=== PATIENT | male | born 1945 | race Two or more races ===

== ENCOUNTER 2018-05-15 07:25 | Emergency (ER) | payer MEDICARE ==
[2018-05-15 07:31] VITALS: BP 185/106; PULSE 85; RESP 18; TEMP 97.8
--- NOTE | 2018-05-15 07:48 | ED ---
General Adult HPI - General Chief complaint: Skin/Abscess/Foreign Body Stated complaint: Rash Time Seen by Provider: 05/15/18 07:36 Source: patient, RN notes reviewed Mode of arrival: ambulatory Limitations: no limitations - History of Present Illness Initial comments: 72-year-old male history of hypertension presenting with 10 days of rash to both forearms. Patient has been clearing some bushes and shrubs from his property. He believes he may have come in contact with poison IV. He's had an erythematous itchy rash with some blistering over both forearms for the past 10 days. He has been applying topical steroids with minimal improvement. Denies any sores in the mouth or on the tongue. Denies fever or chills. Denies chest pain or difficulty breathing. No other associated symptoms. Rash is located just on his forearms. - Related Data Previous Rx's Medication Instructions Recorded methylPREDNISolone Dose Pack 4 mg PO DIRECTED #21 package 05/15/18 [Medrol Dose Pack] Allergies Allergy/AdvReac Type Severity Reaction Status Date / Time No Known Allergies Allergy Verified 05/15/18 07:31 Review of Systems ROS Statement: Those systems with pertinent positive or pertinent negative responses have been documented in the HPI. ROS Other: All systems not noted in ROS Statement are negative. Past Medical History Past Medical History: Hypertension Additional Past Medical History / Comment(s): Glaucoma History of Any Multi-Drug Resistant Organisms: None Reported Additional Past Surgical History / Comment(s): Cataract surgery Past Psychological History: No Psychological Hx Reported Smoking Status: Current every day smoker Past Alcohol Use History: Occasional General Exam Limitations: no limitations General appearance: alert, in no apparent distress Head exam: Present: atraumatic, normocephalic Eye exam: Present: normal appearance, PERRL ENT exam: Present: normal exam Neck exam: Present: normal inspection. Absent: tenderness, meningismus Respiratory exam: Present: normal lung sounds bilaterally. Absent: respiratory distress Cardiovascular Exam: Present: regular rate, normal rhythm GI/Abdominal exam: Present: soft Extremities exam: Present: other (Erythematous rash, diffuse on the palmar surface of both forearms, there is some yellow crusting and blistering consistent with poison dinah.) Neurological exam: Present: alert, oriented X3 Skin exam: Present: rash Course Vital Signs 05/15/18 07:29 Temperature 97.8 F Pulse Rate 85 Respiratory 18 Rate Blood Pressure 185/106 O2 Sat by Pulse 97 Oximetry Medical Decision Making - Medical Decision Making 72-year-old male with history and physical exam findings consistent with poison dinah. Patient is instructed on local care including washing and application, and lotion. He will be prescribed oral steroids for symptomatically relief. He will follow-up with his primary care physician. Disposition Clinical Impression: Contact dermatitis, Poison dinah dermatitis Disposition: HOME SELF-CARE Condition: Good Instructions: Poison Dinah (ED) Prescriptions: methylPREDNISolone Dose Pack [Medrol Dose Pack] 4 mg PO DIRECTED #21 package Is patient prescribed a controlled substance at d/c from ED?: No Referrals: Rafal Olivarez DO [Primary Care Provider] - 1-2 days Time of Disposition: 07:48
== END 2018-05-15 07:57 | disposition home or self-care (01) ==
LOC: EC 07:25
DX: L23.7 Allergic contact dermatitis due to plants, except food (principal); F17.200 Nicotine dependence, unspecified, uncomplicated
CPT/HCPCS: 99282

== ENCOUNTER 2022-01-22 17:57 | Emergency (ER) | payer MEDICARE ==
[2022-01-22] MEDS ORDERED: IPRATROPIUM-ALBUTEROL 3 ML NEB INHALATION STA ×2 (18:20→19:27)
[2022-01-22] MEDS ORDERED: SODIUM CHLORIDE 0.9% 1,000 ML IV STA (18:20)
--- NOTE | 2022-01-22 18:23 | ED ---
SOB HPI - General Chief Complaint: Shortness of Breath Stated Complaint: ADRIAN, tremors Time Seen by Provider: 01/22/22 18:12 Source: patient, RN notes reviewed Mode of arrival: ambulatory Limitations: no limitations - History of Present Illness Initial Comments: 76-year-old male with a history of glaucoma he denies any history of COPD asthma are seen whether he does smoke 1 pack cigarettes every 2 days who presents with complaints of shortness of breath this started about 45 minutes prior to arrival he does admit he is had a cough with green phlegm for last couple weeks. No overt fevers chills sweats he does have exertional dyspnea but he states this is long-term and nothing new. No chest pain or other complaints at this time MD Complaint: shortness of breath, cough - Related Data Home Medications Medication Instructions Recorded Confirmed Lisinopril-Hctz 20-12.5 mg 1 tab PO DAILY 05/15/18 01/22/22 [Zestoretic 20-12.5] Tamsulosin HCl [Flomax] 0.4 mg PO DAILY 01/22/22 01/22/22 Previous Rx's Medication Instructions Recorded Amoxic-Pot Clav 875-125Mg 1 tab PO Q12HR 1 Days #20 tab 01/22/22 [Augmentin 875-125] predniSONE [Deltasone] 20 mg PO BID #10 tab 01/22/22 Allergies Allergy/AdvReac Type Severity Reaction Status Date / Time No Known Allergies Allergy Verified 01/22/22 18:02 Review of Systems ROS Statement: Those systems with pertinent positive or pertinent negative responses have been documented in the HPI. ROS Other: All systems not noted in ROS Statement are negative. Past Medical History Past Medical History: Hypertension Additional Past Medical History / Comment(s): Glaucoma History of Any Multi-Drug Resistant Organisms: None Reported Additional Past Surgical History / Comment(s): Cataract surgery Past Psychological History: No Psychological Hx Reported Smoking Status: Never smoker Past Alcohol Use History: Occasional Past Drug Use History: None Reported General Exam - General Exam Comments Initial Comments: This is a well-developed well-nourished awake alert oriented 4 male Limitations: no limitations General appearance: alert, in no apparent distress Head exam: Present: atraumatic, normocephalic, normal inspection Eye exam: Present: normal appearance, PERRL, EOMI. Absent: scleral icterus, conjunctival injection, periorbital swelling ENT exam: Present: mucous membranes dry Neck exam: Present: normal inspection, full ROM, other. Absent: tenderness, meningismus, lymphadenopathy Respiratory exam: Present: decreased breath sounds, other (Rodriguez sounds bilaterally more so on the right than the left however.). Absent: respiratory distress, wheezes, rales, rhonchi, stridor Cardiovascular Exam: Present: regular rate, normal rhythm, normal heart sounds. Absent: systolic murmur, diastolic murmur, rubs, gallop, clicks GI/Abdominal exam: Present: soft, normal bowel sounds. Absent: distended, tenderness, guarding, rebound, rigid Extremities exam: Present: normal inspection, full ROM, normal capillary refill. Absent: tenderness, pedal edema, joint swelling, calf tenderness Back exam: Present: normal inspection Neurological exam: Present: alert, oriented X3, CN II-XII intact Psychiatric exam: Present: normal affect, normal mood Skin exam: Present: warm, dry, intact, normal color. Absent: rash Course Vital Signs 01/22/22 01/22/22 01/22/22 18:00 18:37 18:45 Temperature 97.9 F Pulse Rate 77 74 76 Respiratory 24 Rate Blood Pressure 150/89 O2 Sat by Pulse 97 Oximetry 01/22/22 01/22/22 01/22/22 18:46 19:56 20:07 Temperature Pulse Rate 76 78 Respiratory 22 Rate Blood Pressure O2 Sat by Pulse Oximetry - Reevaluation(s) Reevaluation #1: 01/22/22 19:50 Reevaluation the patient does have increased aeration after the initial nebulizer treatment. He is still complain some exertional dyspnea after this. Repeat updraft will be ordered as well as IV steroids Medical Decision Making - Medical Decision Making I did discuss the findings with the patient family patient was road tested by me he was able walk several 100 feet with minimal exertion and maintain a pulse oximetry of 97%. Patient will be discharged home with an inhaler prescription for antibiotics and steroids and he is instructed to follow-up with Dr. Olivarez in 1-2 days. Also return parameters were discussed. - Lab Data Result diagrams: 01/22/22 18:31 01/22/22 18:31 Lab Results 01/22/22 01/22/22 01/22/22 Range/Units 18:31 18:31 18:31 WBC 6.5 (3.8-10.6) k/uL RBC 4.64 (4.30-5.90) m/uL Hgb 13.8 (13.0-17.5) gm/dL Hct 41.5 (39.0-53.0) % MCV 89.6 (80.0-100.0) fL MCH 29.7 (25.0-35.0) pg MCHC 33.1 (31.0-37.0) g/dL RDW 13.3 (11.5-15.5) % Plt Count 206 (150-450) k/uL MPV 8.3 Neutrophils % 64 % Lymphocytes % 28 % Monocytes % 4 % Eosinophils % 2 % Basophils % 0 % Neutrophils # 4.1 (1.3-7.7) k/uL Lymphocytes # 1.8 (1.0-4.8) k/uL Monocytes # 0.3 (0-1.0) k/uL Eosinophils # 0.1 (0-0.7) k/uL Basophils # 0.0 (0-0.2) k/uL PT 10.3 (9.0-12.0) sec INR 0.9 (<1.2) APTT 23.3 (22.0-30.0) sec Sodium 140 (137-145) mmol/L Potassium 3.5 (3.5-5.1) mmol/L Chloride 109 H (98-107) mmol/L Carbon Dioxide 27 (22-30) mmol/L Anion Gap 4 mmol/L BUN 23 H (9-20) mg/dL Creatinine 0.81 (0.66-1.25) mg/dL Est GFR (CKD-EPI)AfAm >90 (>60 ml/min/1.73 sqM) Est GFR (CKD-EPI)NonAf 87 (>60 ml/min/1.73 sqM) Glucose 113 H (74-99) mg/dL Calcium 8.9 (8.4-10.2) mg/dL Magnesium 2.0 (1.6-2.3) mg/dL Total Bilirubin 0.3 (0.2-1.3) mg/dL AST 18 (17-59) U/L ALT 18 (4-49) U/L Alkaline Phosphatase 77 (38-126) U/L Troponin I (0.000-0.034) ng/mL NT-Pro-B Natriuret Pep pg/mL Total Protein 6.6 (6.3-8.2) g/dL Albumin 3.8 (3.5-5.0) g/dL 01/22/22 01/22/22 Range/Units 18:31 18:31 WBC (3.8-10.6) k/uL RBC (4.30-5.90) m/uL Hgb (13.0-17.5) gm/dL Hct (39.0-53.0) % MCV (80.0-100.0) fL MCH (25.0-35.0) pg MCHC (31.0-37.0) g/dL RDW (11.5-15.5) % Plt Count (150-450) k/uL MPV Neutrophils % % Lymphocytes % % Monocytes % % Eosinophils % % Basophils % % Neutrophils # (1.3-7.7) k/uL Lymphocytes # (1.0-4.8) k/uL Monocytes # (0-1.0) k/uL Eosinophils # (0-0.7) k/uL Basophils # (0-0.2) k/uL PT (9.0-12.0) sec INR (<1.2) APTT (22.0-30.0) sec Sodium (137-145) mmol/L Potassium (3.5-5.1) mmol/L Chloride (98-107) mmol/L Carbon Dioxide (22-30) mmol/L Anion Gap mmol/L BUN (9-20) mg/dL Creatinine (0.66-1.25) mg/dL Est GFR (CKD-EPI)AfAm (>60 ml/min/1.73 sqM) Est GFR (CKD-EPI)NonAf (>60 ml/min/1.73 sqM) Glucose (74-99) mg/dL Calcium (8.4-10.2) mg/dL Magnesium (1.6-2.3) mg/dL Total Bilirubin (0.2-1.3) mg/dL AST (17-59) U/L ALT (4-49) U/L Alkaline Phosphatase (38-126) U/L Troponin I <0.012 (0.000-0.034) ng/mL NT-Pro-B Natriuret Pep 208 pg/mL Total Protein (6.3-8.2) g/dL Albumin (3.5-5.0) g/dL - EKG Data -: EKG Interpreted by Me EKG shows normal: sinus rhythm EKG Comments: Sinus rhythm a 74 [place] interval 202 QRS duration 112 QT since QTC 379/406 pulmonary disease pattern and left anterior fascicular block - Radiology Data Radiology results: report reviewed (Image reviewed as well as report no acute findings), image reviewed Disposition Clinical Impression: Acute exacerbation of chronic obstructive pulmonary disease, Bronchitis Disposition: HOME SELF-CARE Condition: Good Instructions (If sedation given, give patient instructions): Acute Bronchitis (ED), Bronchospasm (ED), COPD (Chronic Obstructive Pulmonary Disease) (ED) Prescriptions: Amoxic-Pot Clav 875-125Mg [Augmentin 875-125] 1 tab PO Q12HR 1 Days #20 tab predniSONE [Deltasone] 20 mg PO BID #10 tab Is patient prescribed a controlled substance at d/c from ED?: No Referrals: Rafal Olivarez DO [Primary Care Provider] - 1-2 days Decision Date: 01/22/22 Decision Time: 20:48
[2022-01-22 18:57] LABS: ALT 18 U/L (4-49); AST 18 U/L (17-59); African American GFR (CKD) >90 (>60 ml/min/1.73 sqM); Albumin 3.8 g/dL (3.5-5.0); Alkaline Phosphatase 77 U/L (38-126); Anion Gap 4 mmol/L; Blood Urea Nitrogen 23 mg/dL (9-20); Calcium 8.9 mg/dL (8.4-10.2); Carbon Dioxide 27 mmol/L (22-30); Chloride 109 mmol/L (98-107); Glucose 113 mg/dL (74-99); Non-African American GFR(CKD) 87 (>60 ml/min/1.73 sqM); Potassium 3.5 mmol/L (3.5-5.1); Sodium 140 mmol/L (137-145); Total Bilirubin 0.3 mg/dL (0.2-1.3); Total Protein 6.6 g/dL (6.3-8.2)
[2022-01-22 19:01] LABS: Basophils % (A) 0 %; Eosinophils # (A) 0.1 k/uL (0-0.7); Eosinophils % (A) 2 %; HCT 41.5 % (39.0-53.0); HGB 13.8 gm/dL (13.0-17.5); Lymphocytes # (A) 1.8 k/uL (1.0-4.8); Lymphocytes % (A) 28 %; MCH 29.7 pg (25.0-35.0); MCHC 33.1 g/dL (31.0-37.0); MCV 89.6 fL (80.0-100.0); Mean Platelet Volume 8.3; Monocytes # (A) 0.3 k/uL (0-1.0); Monocytes % (A) 4 %; Neutrophils # (A) 4.1 k/uL (1.3-7.7); Neutrophils % (A) 64 %; Platelet Count 206 k/uL (150-450); RBC 4.64 m/uL (4.30-5.90); RDW 13.3 % (11.5-15.5); WBC 6.5 k/uL (3.8-10.6)
[2022-01-22 19:02] LABS: INR 0.9 (<1.2); Partial Thromboplastin Time 23.3 sec (22.0-30.0); Prothrombin Time 10.3 sec (9.0-12.0)
--- NOTE | 2022-01-22 19:20 | XR ---
EXAMINATION TYPE: XR chest 2V DATE OF EXAM: 01/22/2022 COMPARISON: NONE HISTORY: Difficulty breathing TECHNIQUE: 2 views FINDINGS: Heart is normal. Lungs are clear of consolidation. There are no hilar masses. Costophrenic angles are clear. Bony thorax is intact. IMPRESSION: No active cardiopulmonary disease. Normal heart.
[2022-01-22] MEDS ORDERED: methylPREDNISolone SOD SUCCI 125 MG/2 ML VIAL IV STA (19:27)
[2022-01-22] MEDS ORDERED: ALBUTEROL HFA INHALER INHALATION STA (20:43)
[2022-01-22] MEDS ORDERED: AMOXIC-POT CLAV 875-125MG 1 EACH TAB PO STA (20:48)
[2022-01-22 21:36] VITALS: BP 137/77; PULSE 73; RESP 18; TEMP 97.2
== END 2022-01-22 21:35 | disposition home or self-care (01) ==
LOC: EC 17:57
DX: J44.1 Chronic obstructive pulmonary disease with (acute) exacerbation (principal); I10 Essential (primary) hypertension; Z79.899 Other long term (current) drug therapy
CPT/HCPCS: 36415; 94640 ×2; 93005; 83880; 80053; 83735; 84484; 85025; 85610; 85730; 71046; 99285; 96374; 96361; J2930

== ENCOUNTER 2022-02-07 16:57 | Emergency (ER) | payer MEDICARE ==
[2022-02-07 17:05] VITALS: BP 139/79; PULSE 91; RESP 18; TEMP 98.1
[2022-02-07 18:31] LABS: Appearance,Urine Cloudy (Clear); Bacteria,Urine Rare /hpf; Bilirubin,Urine 2+ (Negative); Blood,Urine Small (Negative); Color,Urine Dark Brown; Glucose,Urine (UA) Negative (Negative); Ketones,Urine Negative (Negative); Leukocyte Esterase,Urine Negative (Negative); Mucus,Urine Many /hpf; Nitrite,Urine Positive (Negative); Protein,Urine 3+ (Negative); RBC,Urine 60 /hpf (0-5); Specific Gravity,Urine 1.019 (1.001-1.035); Squamous Epithelial Cell,Urine 1 /hpf (0-4); WBC,Urine 31 /hpf (0-5)
[2022-02-07] MEDS ORDERED: SULFAMETHOX-TMP 800-160MG 1 EACH TAB PO STA (18:54)
[2022-02-07] MEDS ORDERED: PHENAZOPYRIDINE 100 MG TAB PO STA (18:54)
--- NOTE | 2022-02-07 18:56 | ED ---
Male Urogenital HPI - General Chief complaint: Urogenital Stated complaint: trouble urinating Time Seen by Provider: 02/07/22 17:38 Source: patient Mode of arrival: ambulatory Limitations: no limitations - History of Present Illness Initial comments: Patient is a 76-year-old male with history of hypertension presenting with chief complaint of dysuria. Patient states that today he began experiencing burning with urination as well as small frequent amounts of urine. Patient states that he regularly gets episodes of the symptoms, states he is normally able to control the symptoms by drinking a lot of water, however today his symptoms have not improved. He took Azo at home with no relief. He denies any abdominal pain, back pain, fever, chills, nausea, vomiting, chest pain, shortness of breath, palpitations, weakness, genital pain. - Related Data Home Medications Medication Instructions Recorded Confirmed Lisinopril-Hctz 20-12.5 mg 1 tab PO DAILY 05/15/18 01/22/22 [Zestoretic 20-12.5] Tamsulosin HCl [Flomax] 0.4 mg PO DAILY 01/22/22 01/22/22 Previous Rx's Medication Instructions Recorded Amoxic-Pot Clav 875-125Mg 1 tab PO Q12HR 1 Days #20 tab 01/22/22 [Augmentin 875-125] predniSONE [Deltasone] 20 mg PO BID #10 tab 01/22/22 Phenazopyridine [Pyridium] 100 mg PO TID PRN 2 Days #6 tablet 02/07/22 Sulfamethox-Tmp 800-160Mg [Bactrim 1 tab PO Q12HR 10 Days #20 tab 02/07/22 DS 800-160 mg] Allergies Allergy/AdvReac Type Severity Reaction Status Date / Time No Known Allergies Allergy Verified 02/07/22 17:05 Review of Systems ROS Statement: Those systems with pertinent positive or pertinent negative responses have been documented in the HPI. ROS Other: All systems not noted in ROS Statement are negative. Past Medical History Past Medical History: Hypertension Additional Past Medical History / Comment(s): Glaucoma History of Any Multi-Drug Resistant Organisms: None Reported Additional Past Surgical History / Comment(s): Cataract surgery Past Psychological History: No Psychological Hx Reported Smoking Status: Current every day smoker Past Alcohol Use History: Occasional Past Drug Use History: None Reported General Exam Limitations: no limitations General appearance: alert, in no apparent distress Head exam: Present: atraumatic, normocephalic, normal inspection Eye exam: Present: normal appearance, EOMI. Absent: scleral icterus, periorbital swelling Neck exam: Present: normal inspection Respiratory exam: Present: normal lung sounds bilaterally. Absent: respiratory distress, wheezes, rales, rhonchi, stridor Cardiovascular Exam: Present: regular rate, normal rhythm, normal heart sounds. Absent: systolic murmur, diastolic murmur, rubs, gallop, clicks Back exam: Present: normal inspection. Absent: CVA tenderness (R), CVA tenderness (L) Neurological exam: Present: alert, oriented X3, CN II-XII intact Psychiatric exam: Present: normal affect, normal mood Skin exam: Present: warm, dry, intact, normal color. Absent: rash Course Vital Signs 02/07/22 17:00 Temperature 98.1 F Pulse Rate 91 Respiratory 18 Rate Blood Pressure 139/79 O2 Sat by Pulse 94 L Oximetry Medical Decision Making - Medical Decision Making Patient is a 76-year-old male presenting with dysuria, urgency, frequency starting today. He took AZO at home with no relief. He has no abdominal pain or CVA tenderness. No fever, chills, nausea, vomiting. Urine shows signs of UTI, small blood, positive nitrites, urine RBC and WBC, urine WBC clumps, and rare bacteria. Patient will be treated for UTI with Bactrim twice a day for 10 days. Patient is given 2 days supply of Pyridium, instructed not to take medication longer than 2 days and to seek further evaluation if symptoms do not improve in 2 days. Follow-up with PCP in one to 2 days. Report back to ER if any new or worsening symptoms. I discussed return parameters answered all questions. Patient conveyed verbal understanding and agreed to the plan. I discussed this case my attending Dr. Treviño. - Lab Data Lab Results 02/07/22 Range/Units 18:15 Urine Color Dark Brown Urine Appearance Cloudy (Clear) Urine pH 6.0 (5.0-8.0) Ur Specific [place] [address] [place] 1.019 (1.001-1.035) Urine Protein 3+ H (Negative) Urine Glucose (UA) Negative (Negative) Urine Ketones Negative (Negative) Urine Blood Small H (Negative) Urine Nitrite Positive (Negative) Urine Bilirubin 2+ H (Negative) Urine Urobilinogen 8.0 (<2.0) mg/dL Ur Leukocyte Esterase Negative (Negative) Urine RBC 60 H (0-5) /hpf Urine WBC 31 H (0-5) /hpf Urine WBC Clumps Rare H (None) /hpf Ur Squamous Epith Cells 1 (0-4) /hpf Urine Bacteria Rare H (None) /hpf Urine Mucus Many H (None) /hpf Disposition Clinical Impression: UTI (urinary tract infection) Disposition: HOME SELF-CARE Condition: Good Instructions (If sedation given, give patient instructions): Urinary Tract Infection in Men (ED) Additional Instructions: Follow-up with PCP in one to 2 days. Report back to ER with any new or worsening symptoms. Take medication as prescribed. Do not take Pyridium for more than 2 days. Prescriptions: Sulfamethox-Tmp 800-160Mg [Bactrim DS 800-160 mg] 1 tab PO Q12HR 10 Days #20 tab Phenazopyridine [Pyridium] 100 mg PO TID PRN 2 Days #6 tablet PRN Reason: Pain Is patient prescribed a controlled substance at d/c from ED?: No Referrals: Rafal Olivarez DO [Primary Care Provider] - 1-2 days Time of Disposition: 18:56
== END 2022-02-07 19:21 | disposition home or self-care (01) ==
LOC: EC 16:57
DX: N39.0 Urinary tract infection, site not specified (principal); I10 Essential (primary) hypertension; F17.200 Nicotine dependence, unspecified, uncomplicated; Z79.899 Other long term (current) drug therapy
CPT/HCPCS: 81001; 87086; 99283

== ENCOUNTER → 2022-06-07 | Outpatient (CLI) | payer MEDICARE ==
[2022-06-07 11:53] LABS: African American GFR (CKD) >90 (>60 ml/min/1.73 sqM); Blood Urea Nitrogen 27 mg/dL (9-20); Non-African American GFR(CKD) 84 (>60 ml/min/1.73 sqM)
--- NOTE | 2022-06-07 13:06 | CT ---
EXAMINATION TYPE: CT urogram wo/w con DATE OF EXAM: 06/07/2022 COMPARISON: None HISTORY: Reduced urine flow, microscopic hematuria CT DLP: 4723.7 mGycm CONTRAST: Performed and without and with IV Contrast, patient injected with 100 mL of Isovue 370. CT Urography was performed with unenhanced followed by enhanced images of the kidneys, ureters and ur inary bladder. Delayed images were obtained. 3d reconstruction was performed at a separate work sta tion. FINDINGS: KIDNEYS/BLADDER: No hydronephrosis. No nephrolithiasis. No disctinct renal mass. Urinary bladder g rossly unremarkable. LUNG BASES-: No visible nodule. No infiltrate. LIVER/GB: No calcified gallstones. 1.6 cm hepatic hemangioma lateral segment left hepatic lobe. Add itional hepatic hemangioma measuring 1.2 cm medial segment left hepatic lobe. Simple hepatic cyst ant erior segment right hepatic lobe measuring 2.3 cm. Biliary tree is of normal caliber. PANCREAS: No inflammation. No distinct mass. SPLEEN: No splenic enlargement. No lesion seen. ADRENALS: No nodule. No thickening. BOWEL: Normal appendix. Normal bowel caliber. No inflammation. GENITAL ORGANS: The prostate gland is enlarged at 6.1 x 5.5 cm. LYMPH NODES: No greater than 1cm abdominal or pelvic lymph nodes are appreciated. AORTA: No significant abnormality. OSSEOUS STRUCTURES: No significant abnormality is seen. OTHER: No significant additional abnormality is seen. IMPRESSION: 1. No significant abnormality to account for the patient's symptoms.
== END | disposition home or self-care (01) ==
LOC: RADCTMAIN 11:01
PROVIDERS: ATTEND Urology
DX: R31.1 Benign essential microscopic hematuria (principal)
CPT/HCPCS: 82565; 84520; 74178; 36415; 74400; Q9967

== ENCOUNTER 2023-08-26 09:03 | Emergency (ER) | payer MEDICARE ==
[2023-08-26 09:34] VITALS: RESP 18; TEMP 97.5
[2023-08-26] MEDS ORDERED: FLUORESCEIN STRIPS 1 MG STRIP LEFT EYE ONE (10:00)
[2023-08-26] MEDS ORDERED: PROPARACAINE 0.5% OPHTH DROPS 15 ML BTL LEFT EYE STA (10:00)
--- NOTE | 2023-08-26 10:06 | ED ---
Eye Problem HPI - General Chief complaint: Eye Problems Stated complaint: L eye pain and loss of vision Time Seen by Provider: 08/26/23 09:52 Source: patient, RN notes reviewed Mode of arrival: ambulatory Limitations: no limitations - History of Present Illness Initial comments: This is a 78 year old male who presents to the emergency department for left eye pain. States that 2 days ago he had pain to the left eye and saw an content strategy lead at Dr. Carrillo's office. He did an evaluation and advised that he appeared to have a large corneal abrasion. He started him on ciprofloxacin eyedrops and put a bandage contact lens over the eye. He is concerned that the lens may have become loose, as he has had increasing pain and blurry vision. Also reports photosensitivity. He is taking over the counter Tylenol with no significant relief. MD chief complaint: eye pain - Related Data Home Medications Medication Instructions Recorded Confirmed Lisinopril-Hctz 20-12.5 mg 1 tab PO DAILY 05/15/18 01/22/22 [Zestoretic 20-12.5] Tamsulosin HCl [Flomax] 0.4 mg PO DAILY 01/22/22 01/22/22 Previous Rx's Medication Instructions Recorded Amoxic-Pot Clav 875-125Mg 1 tab PO Q12HR 1 Days #20 tab 01/22/22 [Augmentin 875-125] predniSONE [Deltasone] 20 mg PO BID #10 tab 01/22/22 Phenazopyridine [Pyridium] 100 mg PO TID PRN 2 Days #6 tablet 02/07/22 Sulfamethox-Tmp 800-160Mg [Bactrim 1 tab PO Q12HR 10 Days #20 tab 02/07/22 DS 800-160 mg] Allergies Allergy/AdvReac Type Severity Reaction Status Date / Time No Known Allergies Allergy Verified 08/26/23 09:13 Review of Systems ROS Statement: Those systems with pertinent positive or pertinent negative responses have been documented in the HPI. ROS Other: All systems not noted in ROS Statement are negative. Past Medical History Past Medical History: Hypertension Additional Past Medical History / Comment(s): Glaucoma History of Any Multi-Drug Resistant Organisms: None Reported Additional Past Surgical History / Comment(s): Cataract surgery Past Psychological History: No Psychological Hx Reported Smoking Status: Current every day smoker Past Alcohol Use History: Occasional Past Drug Use History: None Reported General Exam Limitations: no limitations General appearance: alert, in no apparent distress Head exam: Present: atraumatic, normocephalic, normal inspection Eye exam: Present: PERRL, EOMI, other (Contact lens in place over the left eye with visible corneal abrasion. ) Respiratory exam: Present: normal lung sounds bilaterally. Absent: respiratory distress, wheezes, rales, rhonchi, stridor Cardiovascular Exam: Present: regular rate, normal rhythm, normal heart sounds. Absent: systolic murmur, diastolic murmur, rubs, gallop, clicks Neurological exam: Present: alert, oriented X3, CN II-XII intact Psychiatric exam: Present: normal affect, normal mood Skin exam: Present: warm, dry, intact, normal color. Absent: rash Course Vital Signs 08/26/23 08/26/23 09:09 12:40 Temperature 97.5 F L Pulse Rate 65 60 Respiratory 18 18 Rate Blood Pressure 183/93 170/100 O2 Sat by Pulse 96 97 Oximetry Medical Decision Making - Medical Decision Making This is a 78-year-old male who presents to the emergency department for left eye pain. Was pt. sent in by a medical professional or institution? @ -No Did you speak to anyone other than the patient for history? @ -No Did you review nursing and triage notes? @ -Yes, and I agree, it is accurate with regards to the patient's symptoms. Were old charts reviewed? @ -No Differential Diagnosis? @ -Differential Eye Pain: Conjuncitivitis (viral, bacterial, allergic), corneal abrasion, foreign body, iritis, uveitis, keratitis, acute angle closure glaucoma, this is not meant to be an all-inclusive list. EKG interpreted by me (3pts min.)? @ -Not obtained X-rays interpreted by me (1pt min.)? @ -Not obtained CT interpreted by me (1pt min.)? @ -Not obtained U/S interpreted by me (1pt. min.)? @ -Not obtained What testing was considered but not performed? (CT, X-rays, U/S, labs)? Why? @ -None What meds were considered but not given? Why? @ -None Did you discuss the management of the patient with other professionals? @ -Yes, Dr. Ackerman, ophthalmology, who advised that the lens could be removed and the patient can use lubricating eye drops every couple of hours for additional relief. Did you reconcile home meds? @ -No Was smoking cessation discussed for >3mins.? @ -No Was critical care preformed (if so, how long)? @ -No Were there social determinants of health that impacted care today? How? (Homelessness, low income, unemployed, alcoholism, drug addiction, transportation, low edu. Level, literacy, decrease access to med. care, snf, rehab)? @ -No Was there de-escalation of care discussed even if they declined? (Discuss DNR or withdrawal of care, Hospice)? @ -No What co-morbidities impacted this encounter? (DM, HTN, Smoking, COPD, CAD, Cancer, CVA, Hep., AIDS, mental health diagnosis, sleep apnea, morbid obesity)? @ -None Was patient admitted / discharged? @ -Discharged. Patient had a corneal abrasion with a bandage contact lens on top. Case discussed with on-call ophthalmology, Dr. Ackerman. He advised that based on the patient's level of discomfort, it would be advised to remove this and have him follow-up with his content strategy lead in the office tomorrow. Fluorescein staining performed to visualize the outline of the contact lens. Contact lens removed by Dr. Thomas, ED attending. Discussed the possibility of infection being trapped under the lens or the lens causing inflammation, leading to the pain. Patient noted improvement in vision and pain following lens removal. Advised to continue using the antibiotic drops as prescribed. Per Dr. Ackerman's recommendations, also advised using lubricating eyedrops every couple of hours for additional relief and continuing to alternate with ibuprofen and Ty lenol for pain relief. Patient is instructed to contact Dr. Carrillo's office first thing tomorrow morning for a follow-up appointment. Undiagnosed new problem with uncertain prognosis? @ -None Drug Therapy requiring intensive monitoring for toxicity (Heparin, Nitro, Insulin, Cardizem)? @ -None Were any procedures done? @ -None Diagnosis/symptom? @ -Corneal abrasion Acute, or Chronic, or Acute on Chronic? @ -Acute Uncomplicated (without systemic symptoms) or Complicated (systemic symptoms)? @ -Uncomplicated Side effects of treatment? @ -None Exacerbation, Progression, or Severe Exacerbation] @ -Not applicable Poses a threat to life or bodily function? @ -No Return precautions reviewed in depth, the patient is instructed to return to the emergency department with any new, worsening, or concerning symptoms. Patient verbalized understanding. This case was discussed in detail with the attending ED physician, Dr. Thomas. Presentation, findings, and treatment plan discussed in detail as well. Disposition Clinical Impression: Corneal abrasion Disposition: HOME SELF-CARE Instructions (If sedation given, give patient instructions): Corneal Abrasion (ED) Additional Instructions: Return to the emergency department with any new, worsening, or concerning symptoms. Alternate with ibuprofen and Tylenol as needed for pain relief. Use lubricating eyedrops every couple of hours. Continue to use the antibiotic eyedrops. Contact your content strategy lead office first thing tomorrow morning to see if they can see you for a sooner follow-up appointment. Is patient prescribed a controlled substance at d/c from ED?: No Referrals: Rafal Olivarez DO [Primary Care Provider] - 1-2 days Stephon Carrillo MD [STAFF PHYSICIAN] - 1-2 days Time of Disposition: 12:21
[2023-08-26 13:04] VITALS: BP 170/100; PULSE 60
== END 2023-08-26 12:48 | disposition home or self-care (01) ==
LOC: EC 09:03
DX: S05.02XA Injury of conjunctiva and corneal abrasion without foreign body, left eye, initial encounter (principal); I10 Essential (primary) hypertension; F17.200 Nicotine dependence, unspecified, uncomplicated; X58.XXXA Exposure to other specified factors, initial encounter
CPT/HCPCS: 99283

== ENCOUNTER 2024-02-19 15:49 | Emergency (ER) | payer MEDICARE ==
[2024-02-19 16:11] VITALS: TEMP 98
[2024-02-19] MEDS: IBUPROFEN 400 MG TAB PO STA (16:47)
--- NOTE | 2024-02-19 19:07 | ED ---
Lower Extremity Injury HPI - General Chief Complaint: Extremity Injury, Lower Stated Complaint: Fall-L hip pain Time Seen by Provider: 02/19/24 16:15 Source: patient Mode of arrival: wheelchair Limitations: no limitations - History of Present Illness Initial Comments: 78-year-old male presenting with chief complaint of left hip pain. Pain started today. He was grabbing cages out of his barn when he thinks that he "stepped wrong" and started having pain in the hip. A little while after states that it felt like his knee gave out and he fell landing onto his right knee. He did not hit his head, no loss of consciousness or blood thinners. He now has pain with weightbearing and certain positions. The pain radiates down his left leg. He does admit to a pins and needle sensation. Denies any lower back pain. No loss of bowel or bladder control or saddle paresthesia. - Related Data Home Medications Medication Instructions Recorded Confirmed Lisinopril-Hctz 20-12.5 mg 1 tab PO DAILY 05/15/18 01/22/22 [Zestoretic 20-12.5] Tamsulosin HCl [Flomax] 0.4 mg PO DAILY 01/22/22 01/22/22 Previous Rx's Medication Instructions Recorded Amoxic-Pot Clav 875-125Mg 1 tab PO Q12HR 1 Days #20 tab 01/22/22 [Augmentin 875-125] predniSONE [Deltasone] 20 mg PO BID #10 tab 01/22/22 Phenazopyridine [Pyridium] 100 mg PO TID PRN 2 Days #6 tablet 02/07/22 Sulfamethox-Tmp 800-160Mg [Bactrim 1 tab PO Q12HR 10 Days #20 tab 02/07/22 DS 800-160 mg] Acetaminophen-Codeine 300-30mg 1 tab PO Q6H PRN 3 Days #12 tablet 02/19/24 [Tylenol w/codeine #3] Allergies Allergy/AdvReac Type Severity Reaction Status Date / Time No Known Allergies Allergy Verified 02/19/24 16:11 Review of Systems ROS Statement: Those systems with pertinent positive or pertinent negative responses have been documented in the HPI. ROS Other: All systems not noted in ROS Statement are negative. Past Medical History Past Medical History: Hypertension Additional Past Medical History / Comment(s): Glaucoma History of Any Multi-Drug Resistant Organisms: None Reported Additional Past Surgical History / Comment(s): Cataract surgery Past Psychological History: No Psychological Hx Reported Smoking Status: Current every day smoker Past Alcohol Use History: Occasional Past Drug Use History: None Reported General Exam Limitations: no limitations General appearance: alert, in no apparent distress Head exam: Present: atraumatic, normocephalic Eye exam: Present: normal appearance, EOMI Neck exam: Present: normal inspection. Absent: meningismus Respiratory exam: Absent: respiratory distress Left Hip exam: Present: normal inspection, full ROM, tenderness Knee exam: Present: normal inspection, full ROM Neurovascular tendon exam: Present: no vascular compromise Neurological exam: Present: alert, oriented X3 Psychiatric exam: Present: normal affect, normal mood Skin exam: Present: warm, dry Course Vital Signs 02/19/24 02/19/24 02/19/24 16:07 18:13 19:53 Temperature 98.0 F Pulse Rate 16 L 72 76 Respiratory 18 16 18 Rate Blood Pressure 123/69 145/80 138/72 O2 Sat by Pulse 96 95 96 Oximetry Medical Decision Making - Medical Decision Making Was pt. sent in by a medical professional or institution (, PA, BUSINESS TRAVEL CONSULTANT, urgent care, hospital, or correction...) When possible be specific @ -No Did you speak to anyone other than the patient for history (EMS, parent, family, police, friend...)? What history was obtained from this source @ -No Did you review nursing and triage notes (agree or disagree)? Why? @ -I reviewed and agree with nursing and triage notes Were old charts reviewed (outside hosp., previous admission, EMS record, old EKG, old radiological studies, urgent care reports/EKG's, correction records)? Report findings @ -No old charts were reviewed Differential Diagnosis (chest pain, altered mental status, abdominal pain women, abdominal pain men, vaginal bleeding, weakness, fever, dyspnea, syncope, headache, dizziness, GI bleed, back pain, seizure, CVA, palpatations, mental health, musculoskeletal)? @ -Differential Musculoskeletal Muscular strain, contusion, ligament sprain, fracture, arthritis, septic arthritis, bursitis, cellulitis, muscle spasm, nerve compression, DVT, arterial occlusion, herpes zoster, electrolyte abnormality, tumor.... This is not meant to be in all inclusive list EKG interpreted by me (3pts min.). @ -As above X-rays interpreted by me (1pt min.). @ -Hip x-ray shows no acute osseous abnormality Normal 3 view left knee x-ray Lumbar spine x-ray shows no acute fracture and moderate multilevel disc degeneration CT interpreted by me (1pt min.). @ -None done U/S interpreted by me (1pt. min.). @ -None done What testing was considered but not performed or refused? (CT, X-rays, U/S, labs)? Why? @ -None What meds were considered but not given or refused? Why? @ -None Did you discuss the management of the patient with other professionals (professionals i.e. , PA, BUSINESS TRAVEL CONSULTANT, lab, RT, psych nurse, social work manager, lawyer criminal, teacher, first officer and flight instructor, test case developer)? Give summary @ -No Was smoking cessation discussed for >3mins.? @ -No Was critical care preformed (if so, how long)? @ -No Were there social determinants of health that impacted care today? How? (Homelessness, low income, unemployed, alcoholism, drug addiction, transportation, low edu. Level, literacy, decrease access to med. care, residential, rehab)? @ -No Was there de-escalation of care discussed even if they declined (Discuss DNR or withdrawal of care, Hospice)? DNR status @ -No What co-morbidities impacted this encounter? (DM, HTN, Smoking, COPD, CAD, Cancer, CVA, ARF, Chemo, Hep., AIDS, mental health diagnosis, sleep apnea, morbid obesity)? @ -None Was patient admitted / discharged? Hospital course, mention meds given and route, prescriptions, significant lab abnormalities, going to OR and other pertinent info. @ -78-year-old male presenting with chief complaint of pain to the left hip and knee. States that he stepped awkwardly today and the pain started. Later on in the day felt like the leg could not support him that he did fall onto the right knee. No head injury. The patient is neurovascularly intact. X-rays are negative for acute osseous abnormality. Patient is given pain medication and instructed to follow-up with orthopedics. Discharged. Follow-up with PCP. Rep ort back to ER with any new or worsening symptoms. Discussed return parameters and answered all questions. Patient conveyed verbal understanding and agreed to the plan. I discussed this case in detail with my attending Dr. Grossman Undiagnosed new problem with uncertain prognosis? @ -No Drug Therapy requiring intensive monitoring for toxicity (Heparin, Nitro, Insulin, Cardizem)? @ -No Were any procedures done? @ -No Diagnosis/symptom? @ -Hip pain Acute, or Chronic, or Acute on Chronic? @ -Acute Uncomplicated (without systemic symptoms) or Complicated (systemic symptoms)? @ -Uncomplicated Side effects of treatment? @ -No Exacerbation, Progression, or Severe Exacerbation? @ -No Poses a threat to life or bodily function? How? (Chest pain, [place], [place], pneumonia, PE, COPD, DKA, ARF, appy, cholecystitis, CVA, Diverticulitis, Homicidal, Suicidal, threat to staff... and all critical care pts) @ -Low likelihood Disposition Clinical Impression: Hip pain Disposition: HOME SELF-CARE Condition: Good Instructions (If sedation given, give patient instructions): Hip Pain (ED) Additional Instructions: Follow-up with PCP and orthopedics. Report back to ER with any new or worsening symptoms. Prescriptions: Acetaminophen-Codeine 300-30mg [Tylenol w/codeine #3] 1 tab PO Q6H PRN 3 Days #12 tablet PRN Reason: Pain Is patient prescribed a controlled substance at d/c from ED?: Yes When asked, does pt state using other controlled substances?: No If prescribed controlled substance>3 days was MAPS reviewed?: Prescribed <3 Days If opioid is for acute pain is fill amount 7 days or less?: Yes Referrals: Rafal Olivarez DO [Primary Care Provider] - 1-2 days Hayder Lobo DO [Doctor of Osteopathic Medicine] - 1-2 days Time of Disposition: 19:32
--- NOTE | 2024-02-19 19:10 | XR ---
EXAMINATION TYPE: XR Hip Complete LT DATE OF EXAM: 02/19/2024 COMPARISON: 02/19/2024 HISTORY: Fall twisting injury TECHNIQUE: 2 view left hip FINDINGS: Bilateral head articulates with the acetabulum. Joint spaces are preserved. No acute fractu res are evident. IMPRESSION: 1. No Acute osseous abnormality. Follow up exams be performed as clinically indicated
--- NOTE | 2024-02-19 19:10 | XR ---
EXAMINATION TYPE: XR lumbar spine 2 or 3V DATE OF EXAM: 02/19/2024 5:23 PM CLINICAL INDICATION:Male, 78 years old with history of fall; [facility] COMPARISON: None TECHNIQUE: XR lumbar spine 2 or 3V - Frontal, lateral and coned in L5-S1 lateral views of the spine. FINDINGS: No evidence of any acute osseous pathology. No evidence of loss of vertebral body height i s seen. There is normal alignment of the lumbar vertebral bodies. Scattered disc space narrowing. Mul tilevel marginal osteophyte formation throughout the visualized spine. There is facet joint arthropat hy throughout the spine. Scattered at least mild neural foraminal stenosis. IMPRESSION: 1. No acute fracture. 2. Moderate multilevel disc degeneration.
--- NOTE | 2024-02-19 19:11 | XR ---
EXAMINATION TYPE: XR knee complete LT DATE OF EXAM: 02/19/2024 COMPARISON: None HISTORY: Twisting injury TECHNIQUE: 3 view left knee FINDINGS: No acute fracture or dislocation. Soft tissues are normal. Joint spaces are preserved. No j oint effusion evident. Follow-up in 7-10 days can be performed as clinically indicated. IMPRESSION: 1. Normal three-view left knee
[2024-02-19] MEDS: HYDROcodone/APAP 7.5-325MG 1 EACH TAB PO ONE (19:47)
[2024-02-19] MEDS: DEXAMETHASONE SOD PHOSPHATE 10 MG/ML 1 ML VIAL IM STA (19:48)
[2024-02-19] MEDS: ACET/COD 300 MG/30 MG STARTER PACK 6 TAB BTL PO STA (19:48)
[2024-02-19 19:55] VITALS: BP 138/72; PULSE 76; RESP 18
== END 2024-02-19 19:55 | disposition home or self-care (01) ==
LOC: EC 15:49
DX: M25.552 Pain in left hip (principal); M51.36 Other intervertebral disc degeneration, lumbar region; F17.200 Nicotine dependence, unspecified, uncomplicated
CPT/HCPCS: 72100; 73502; 73562; 99283; 96372; J1100

== ENCOUNTER → 2024-04-01 | Outpatient (CLI) | payer MEDICARE ==
--- NOTE | 2024-04-01 13:56 | XR ---
EXAMINATION TYPE: XR lumbar spine 3V DATE OF EXAM: 04/01/2024 Comparison: 02/19/2024 Clinical History: 78-year-old male radiculopathy Findings: Left vertebral shift is unchanged. 5 lumbar type vertebral bodies. Moderate degenerative disc disease and endplate spondylosis throughout. Vertebral body heights are preserved. Unchanged trace grade 1 a nterolisthesis L4-L5. Hypertrophic facet arthropathy mid to lower lumbar spine. Impression: 1. Moderate multilevel degenerative disc disease and hypertrophic facet arthropathy especially mid to lower lumbar spine. 2. Similar degenerative trace grade 1 anterolisthesis L4-L5. 3. No vertebral compression collapse.
== END | disposition home or self-care (01) ==
LOC: RADXRMAIN 12:40
PROVIDERS: ATTEND Family Medicine
DX: M54.10 Radiculopathy, site unspecified
CPT/HCPCS: 72100

== ENCOUNTER 2024-12-16 20:14 | Inpatient (IN) | payer MEDICARE ==
--- NOTE | 2024-12-16 20:18 | ED ---
Male Urogenital HPI - General Stated complaint: SOB Time Seen by Provider: 12/16/24 20:17 Source: RN notes reviewed, old records reviewed Mode of arrival: ambulatory Limitations: no limitations - History of Present Illness Initial comments: This is a 79-year-old male to the ER for evaluation as patient presents today for evaluation regards to severe shortness of breath shortness of breath also having blood in the urine history of blood in the urine but has been evaluated for bladder cancer was negative. Patient has severe shortness of breath without chest pain here in the ER no recent fevers does have underlying COPD MD Complaint: other (Hematuria) -: days(s) Radiation: none Severity: moderate Severity scale (1-10): 4 Consistency: constant Improves with: none Worsens with: urination (hematuria) Reports: denies other symptoms - Related Data Home Medications Medication Instructions Recorded Confirmed Tamsulosin HCl [Flomax] 0.4 mg PO DAILY 01/22/22 12/17/24 Albuterol Sulfate [Albuterol 2 puff INHALATION RT-QID PRN 12/17/24 12/17/24 Sulfate Hfa] Ascorbic Acid [Vitamin C] 1,000 mg PO DAILY 12/17/24 12/17/24 Aspirin EC [Ecotrin Low Dose] 81 mg PO DAILY 12/17/24 12/17/24 Escitalopram [Lexapro] 20 mg PO DAILY 12/17/24 12/17/24 Finasteride [Proscar] 5 mg PO DAILY 12/17/24 12/17/24 LORazepam [Ativan] 0.5 mg PO HS PRN 12/17/24 12/17/24 Latanoprost [Latanoprost 0.005%] 1 drop BOTH EYES HS 12/17/24 12/17/24 Timolol 0.5% Ophth Soln [Timoptic 1 drop BOTH EYES BID 12/17/24 12/17/24 0.5% Ophth Soln] Previous Rx's Medication Instructions Recorded Atorvastatin [Lipitor] 80 mg PO HS #30 tab 12/23/24 Budesonide-Formot 160-4.5 Mcg 2 puff INHALATION RT-BID #1 each 12/23/24 [Symbicort 160-4.5 Mcg Inhaler] Calcium Carbonate [Tums] 500 mg PO TID PRN tab 12/23/24 Ipratropium-Albuterol Nebulize 3 ml INHALATION RT-QID #120 each 12/23/24 [Duoneb 0.5 mg-3 mg/3 ml Soln] Melatonin 5 mg PO HS PRN #30 tab 12/23/24 Metoprolol Tartrate [Lopressor] 25 mg PO BID #60 tab 12/23/24 guaiFENesin [Mucinex] 1,200 mg PO Q12HR #60 tab 12/23/24 predniSONE 10 mg PO DIRECTED #30 tab 12/23/24 Allergies Allergy/AdvReac Type Severity Reaction Status Date / Time No Known Allergies Allergy Verified 12/17/24 09:14 Review of Systems ROS Statement: Those systems with pertinent positive or pertinent negative responses have been documented in the HPI. ROS Other: All systems not noted in ROS Statement are negative. Past Medical History Past Medical History: Hypertension Additional Past Medical History / Comment(s): Glaucoma History of Any Multi-Drug Resistant Organisms: None Reported Additional Past Surgical History / Comment(s): Cataract surgery Past Psychological History: No Psychological Hx Reported Smoking Status: Current every day smoker Past Alcohol Use History: Occasional Past Drug Use History: None Reported General Exam General appearance: alert, in no apparent distress Head exam: Present: atraumatic, normocephalic, normal inspection Eye exam: Present: normal appearance, PERRL, EOMI. Absent: scleral icterus, conjunctival injection, periorbital swelling ENT exam: Present: normal exam, mucous membranes moist Neck exam: Present: normal inspection. Absent: tenderness, meningismus, lymphadenopathy Respiratory exam: Present: normal lung sounds bilaterally. Absent: respiratory distress, wheezes, rales, rhonchi, stridor Cardiovascular Exam: Present: regular rate, normal rhythm, normal heart sounds. Absent: systolic murmur, diastolic murmur, rubs, gallop, clicks GI/Abdominal exam: Present: soft, normal bowel sounds. Absent: distended, tenderness, guarding, rebound, rigid Extremities exam: Present: normal inspection, full ROM, normal capillary refill. Absent: tenderness, pedal edema, joint swelling, calf tenderness Back exam: Present: normal inspection Neurological exam: Present: alert, oriented X3, CN II-XII intact Psychiatric exam: Present: normal affect, normal mood Skin exam: Present: warm, dry, intact, normal color. Absent: rash Course Vital Signs 12/16/24 12/16/24 12/16/24 20:18 20:27 20:58 Temperature 97.9 F Pulse Rate 104 H 94 Respiratory 20 18 Rate Blood Pressure 121/81 O2 Sat by Pulse 95 Oximetry 12/16/24 12/16/24 12/16/24 21:15 23:03 23:21 Temperature Pulse Rate 101 H 96 92 Respiratory 20 Rate Blood Pressure 142/79 O2 Sat by Pulse 97 Oximetry 12/17/24 12/17/24 12/17/24 01:23 01:32 02:10 Temperature Pulse Rate 97 95 96 Respiratory 18 Rate Blood Pressure 105/45 O2 Sat by Pulse 95 Oximetry 12/17/24 12/17/24 12/17/24 07:05 07:23 07:35 Temperature Pulse Rate 73 70 74 Respiratory 18 Rate Blood Pressure 125/77 O2 Sat by Pulse 97 Oximetry 12/17/24 12/17/24 12/17/24 08:45 11:13 11:29 Temperature Pulse Rate 79 76 78 Respiratory 20 Rate Blood Pressure 141/87 O2 Sat by Pulse 94 L Oximetry 12/17/24 12/17/24 12/17/24 11:59 15:27 15:42 Temperature 98.4 F Pulse Rate 76 76 76 Respiratory 18 15 Rate Blood Pressure 147/76 157/94 O2 Sat by Pulse 99 97 Oximetry 12/17/24 15:54 Temperature Pulse Rate 78 Respiratory Rate Blood Pressure O2 Sat by Pulse Oximetry - Reevaluation(s) Reevaluation #1: 12/16/24 22:07 Medical records reviewed Reevaluation #2: 12/16/24 22:07 Patient symptoms relatively unchanged maybe mildly improved after breathing treatment Reevaluation #3: 12/16/24 22:07 Patient informed of results and questions answered Reevaluation #4: Was pt. sent in by a medical professional or institution (, PA, PET SITTER, urgent care, hospital, or snf...) When possible be specific @ -no Did you speak to anyone other than the patient for history (EMS, parent, family, police, friend...)? What history was obtained from this source @ -no Did you review nursing and triage notes (agree or disagree)? Why? @ -agree Are old charts reviewed (outside hosp., previous admission, EMS record, old EKG, old radiological studies, urgent care reports/EKG's, snf records)? Report findings @ -yes Differential Diagnosis (chest pain, altered mental status, abdominal pain women, abdominal pain men, vaginal bleeding, weakness, fever, dyspnea, syncope, hea dache, dizziness, GI bleed, back pain, seizure, CVA, palpatations, mental health, musculoskeletal)? @ -prior EKG interpreted by me (3pts min.). @ -yes X-rays interpreted by me (1pt min.). @ -yes with CHF CT interpreted by me (1pt min.). @ -no U/S interpreted by me (1pt. min.). @ -no What testing was considered but not performed or refused? (CT, X-rays, U/S, labs)? Why? @ -none What meds were considered but not given or refused? Why? @ -none Did you discuss the management of the patient with other professionals (professionals i.e. , PA, PET SITTER, lab, RT, psych nurse, psychologist social, paperhanger pipe, teacher, financial administration officer, keycase assembler)? Give summary @ -no Was smoking cessation discussed for >3mins.? @ -no Was critical care preformed (if so, how long)? @ -yes31 Were there social determinants of health that impacted care today? How? (Homelessness, low income, unemployed, alcoholism, drug addiction, transportation, low edu. Level, literacy, decrease access to med. care, nursing home, rehab)? @ -none Was there de-escalation of care discussed even if they declined (Discuss DNR or withdrawal of care, Hospice)? DNR status @ -no What co-morbidities impacted this encounter? (DM, HTN, Smoking, COPD, CAD, Cancer, CVA, ARF, Chemo, Hep., AIDS, mental health diagnosis, sleep apnea, morbid obesity)? @ -none Was patient admitted / discharged? Hospital course, mention meds given and route, prescriptions, significant lab abnormalities, going to OR and other pertinent info. @ - 79 male to the ER for evaluation patient has severe shortness of breath here in the ER COPD and CHF elevated troponin non-STEMI. Patient will be admitted for acute non-STEMI with CHF complicated by COPD. Patient also has likely UTI Admitted Undiagnosed new problem with uncertain prognosis? @ -no Drug Therapy requiring intensive monitoring for toxicity (Heparin, Nitro, Insulin, Cardizem)? @ -no Were any procedures done? @ -no Diagnosis/symptom? @ -Non-STEMI CHF COPD UTI Acute, or Chronic, or Acute on Chronic? @ -Acute Uncomplicated (without systemic symptoms) or Complicated (systemic symptoms)? @ -Complicated Side effects of treatment? @ -no Exacerbation, Progression, or Severe Exacerbation? @ -exacerbation Poses a threat to life or bodily function? How? (Chest pain, USA, ND, pneumonia, PE, COPD, DKA, ARF, appy, cholecystitis, CVA, Diverticulitis, Homicidal, Suicidal, threat to staff... and all critical care pts) @ -yes significant history of CAD Reevaluation #5: Differential Dyspnea: Coronary syndrome, arrhythmia, tamponade, asthma, COPD, pulmonary embolism, pneumonia, pneumothorax, pulmonary effusion, anaphylaxis, diabetic ketoacidosis, flailed chest, pulmonary contusion, diaphragmatic rupture, anemia, neuromuscular, this is not meant to be an all-inclusive list. - Consultations Consultation #1: Spoke with admitting physicians who agreed to admit this patient Medical Decision Making - Medical Decision Making 79 male to the ER for evaluation patient has severe shortness of breath here in the ER COPD and CHF elevated troponin non-STEMI. Patient will be admitted for acute non-STEMI with CHF complicated by COPD. Patient also has likely UTI - Lab Data Result diagrams: 12/22/24 06:07 12/23/24 14:14 Lab Results 12/16/24 12/16/24 12/16/24 Range/Units 20:56 20:56 20:56 WBC 10.20 H (4.50-10.00) 10*3/uL RBC 3.50 L (4.40-5.60) 10*6/uL Hgb 9.7 L (13.0-17.0) g/dL Hct 29.1 L (39.6-50.0) % MCV 83.1 (80.0-97.0) fL MCH 27.7 (27.0-32.0) pg MCHC 33.3 (32.0-37.0) g/dL Plt Count 309 (140-440) 10*3/uL MPV 10.3 (9.5-12.2) fL Immature Gran % (Auto) 0.4 % Neutrophils % 80.1 % Lymphocytes % 11.5 % Monocytes % 7.2 % Eosinophils % 0.5 % Basophils % 0.3 % Immature Gran # 0.04 (0.00-0.04) 10*3/uL Neutrophils # 8.18 H (1.80-7.70) 10*3/uL Lymphocytes # 1.17 (0.90-5.00) 10*3/uL Monocytes # 0.73 (0.20-1.00) 10*3/uL Eosinophils # 0.05 (0.04-0.35) 10*3/uL Basophils # 0.03 (0.00-0.10) 10*3/uL PT 10.9 (10.0-12.5) sec INR 1.0 (<1.2) APTT 22.0 (22.0-30.0) sec Sodium 133 L (137-145) mmol/L Potassium 3.2 L (3.5-5.1) mmol/L Chloride 103 (98-107) mmol/L Carbon Dioxide 23 (22-30) mmol/L Anion Gap 7 mmol/L BUN 20 (9-20) mg/dL Creatinine 1.00 (0.66-1.25) mg/dL Est GFR (CKD-EPI)AfAm 83 (>60 ml/min/1.73 sqM) Est GFR (CKD-EPI)NonAf 72 (>60 ml/min/1.73 sqM) Glucose 138 H (74-99) mg/dL Plasma Lactic Acid Jakob (0.7-2.0) mmol/L Calcium 8.9 (8.4-10.2) mg/dL Magnesium 1.8 (1.6-2.3) mg/dL Total Bilirubin 0.5 (0.2-1.3) mg/dL AST 25 (17-59) U/L ALT 17 (4-49) U/L Alkaline Phosphatase 82 (38-126) U/L Troponin I (0.000-0.034) ng/mL NT-Pro-B Natriuret Pep 738 pg/mL Total Protein 6.2 L (6.3-8.2) g/dL Albumin 3.2 L (3.5-5.0) g/dL Urine Color Urine Appearance (Clear) Urine pH (5.0-8.0) Ur Specific [place] (1.001-1.035) Urine Protein (Negative) Urine Glucose (UA) (Negative) Urine Ketones (Negative) Urine Blood (Negative) Urine Nitrite (Negative) Urine Bilirubin (Negative) Urine Urobilinogen (<2.0) mg/dL Ur Leukocyte Esterase (Negative) Urine RBC (0-5) /hpf Urine WBC (0-5) /hpf 12/16/24 12/16/24 12/16/24 Range/Units 20:56 20:56 21:47 WBC (4.50-10.00) 10*3/uL RBC (4.40-5.60) 10*6/uL Hgb (13.0-17.0) g/dL Hct (39.6-50.0) % MCV (80.0-97.0) fL MCH (27.0-32.0) pg MCHC (32.0-37.0) g/dL Plt Count (140-440) 10*3/uL MPV (9.5-12.2) fL Immature Gran % (Auto) % Neutrophils % % Lymphocytes % % Monocytes % % Eosinophils % % Basophils % % Immature Gran # (0.00-0.04) 10*3/uL Neutrophils # (1.80-7.70) 10*3/uL Lymphocytes # (0.90-5.00) 10*3/uL Monocytes # (0.20-1.00) 10*3/uL Eosinophils # (0.04-0.35) 10*3/uL Basophils # (0.00-0.10) 10*3/uL PT (10.0-12.5) sec INR (<1.2) APTT (22.0-30.0) sec Sodium (137-145) mmol/L Potassium (3.5-5.1) mmol/L Chloride (98-107) mmol/L Carbon Dioxide (22-30) mmol/L Anion Gap mmol/L BUN (9-20) mg/dL Creatinine (0.66-1.25) mg/dL Est GFR (CKD-EPI)AfAm (>60 ml/min/1.73 sqM) Est GFR (CKD-EPI)NonAf (>60 ml/min/1.73 sqM) Glucose (74-99) mg/dL Plasma Lactic Acid Jakob 1.3 (0.7-2.0) mmol/L Calcium (8.4-10.2) mg/dL Magnesium (1.6-2.3) mg/dL Total Bilirubin (0.2-1.3) mg/dL AST (17-59) U/L ALT (4-49) U/L Alkaline Phosphatase (38-126) U/L Troponin I 0.247 H* (0.000-0.034) ng/mL NT-Pro-B Natriuret Pep pg/mL Total Protein (6.3-8.2) g/dL Albumin (3.5-5.0) g/dL Urine Color Red Urine Appearance Turbid (Clear) Urine pH 5.5 (5.0-8.0) Ur Specific [place] 1.018 (1.001-1.035) Urine Protein 1+ H (Negative) Urine Glucose (UA) Negative (Negative) Urine Ketones Negative (Negative) Urine Blood Large H (Negative) Urine Nitrite Negative (Negative) Urine Bilirubin Negative (Negative) Urine Urobilinogen <2.0 (<2.0) mg/dL Ur Leukocyte Esterase Moderate H (Negative) Urine RBC >182 H (0-5) /hpf Urine WBC 181 H (0-5) /hpf - EKG Data -: EKG Interpreted by Me (EKG is sinus tachycardia 100 VT 221 QRS 113 QTc 418) - Radiology Data Radiology results: report reviewed (Chest x-ray is positive for CHF), image reviewed Critical Care Time Critical Care Time: Yes Total Critical Care Time: 31 Disposition Clinical Impression: Acute exacerbation of chronic obstructive pulmonary disease, Acute pulmonary edema, Congestive heart failure, NSTEMI (non-ST elevated myocardial infarction) Disposition: ADMITTED IP TO THIS HOSP Condition: Serious Is patient prescribed a controlled substance at d/c from ED?: No Time of Disposition: 22:00
[2024-12-16] MEDS: IPRATROPIUM-ALBUTEROL 3 ML NEB INHALATION STA ×2 (20:58→23:03)
[2024-12-16 21:11] LABS: Basophils # (A) 0.03 10*3/uL (0.00-0.10); Basophils % (A) 0.3 %; Eosinophils # (A) 0.05 10*3/uL (0.04-0.35); Eosinophils % (A) 0.5 %; HCT 29.1 % (39.6-50.0); HGB 9.7 g/dL (13.0-17.0); Lymphocytes # (A) 1.17 10*3/uL (0.90-5.00); Lymphocytes % (A) 11.5 %; MCH 27.7 pg (27.0-32.0); MCHC 33.3 g/dL (32.0-37.0); MCV 83.1 fL (80.0-97.0); Mean Platelet Volume 10.3 fL (9.5-12.2); Monocytes # (A) 0.73 10*3/uL (0.20-1.00); Monocytes % (A) 7.2 %; Neutrophils # (A) 8.18 10*3/uL (1.80-7.70); Neutrophils % (A) 80.1 %; Platelet Count 309 10*3/uL (140-440); RDW 14.4 % (11.5-14.5)
[2024-12-16] MEDS: SODIUM CHLORIDE 0.9% 1,000 ML IV ONE (21:19)
[2024-12-16] MEDS: methylPREDNISolone SOD SUCCI 125 MG/2 ML VIAL IV STA (21:20)
[2024-12-16 21:21] LABS: ALT 17 U/L (4-49); AST 25 U/L (17-59); African American GFR (CKD) 83 (>60 ml/min/1.73 sqM); Albumin 3.2 g/dL (3.5-5.0); Alkaline Phosphatase 82 U/L (38-126); Anion Gap 7 mmol/L; Blood Urea Nitrogen 20 mg/dL (9-20); Calcium 8.9 mg/dL (8.4-10.2); Carbon Dioxide 23 mmol/L (22-30); Chloride 103 mmol/L (98-107); Glucose 138 mg/dL (74-99); Magnesium 1.8 mg/dL (1.6-2.3); Non-African American GFR(CKD) 72 (>60 ml/min/1.73 sqM); Potassium 3.2 mmol/L (3.5-5.1); Sodium 133 mmol/L (137-145); Total Bilirubin 0.5 mg/dL (0.2-1.3); Total Protein 6.2 g/dL (6.3-8.2)
[2024-12-16 21:26] LABS: Prothrombin Time 10.9 sec (10.0-12.5)
[2024-12-16 21:30] LABS: NT-Pro-B-Type Natriuretic Pept 738 pg/mL
--- NOTE | 2024-12-16 21:41 | XR ---
EXAMINATION TYPE: XR chest 2V DATE OF EXAM: 12/16/2024 9:35 PM COMPARISON: Chest radiographs from to 725 TECHNIQUE: XR chest 2V Frontal and lateral views of the chest. CLINICAL INDICATION:Male, 79 years old with history of difficulty breathing; FINDINGS: Lungs/Pleura: Small bilateral pleural effusions with left basilar patchy airspace opacities. No pneum othorax. Pulmonary vascularity: Unremarkable. Heart/mediastinum: Cardiomediastinal silhouette is prominent in size. Musculoskeletal: Multiple level degenerative disc disease changes seen throughout the spine. IMPRESSION: Small bilateral pleural effusions with left basilar patchy airspace opacities which may represent ate lectasis versus infiltrate. [facility], , 12/16/2024 9:39 PM
[2024-12-16 22:04] LABS: Appearance,Urine Turbid (Clear); Bilirubin,Urine Negative (Negative); Blood,Urine Large (Negative); Color,Urine Red; Glucose,Urine (UA) Negative (Negative); Ketones,Urine Negative (Negative); Leukocyte Esterase,Urine Moderate (Negative); Nitrite,Urine Negative (Negative); PH, Urine 5.5 (5.0-8.0); Protein,Urine 1+ (Negative); RBC,Urine >182 /hpf (0-5); Specific Gravity,Urine 1.018 (1.001-1.035); Urobilinogen,Urine <2.0 mg/dL (<2.0); WBC,Urine 181 /hpf (0-5)
[2024-12-16] MEDS ORDERED: NALOXONE 0.4 MG/ML 1 ML VIAL IV PRN (22:12)
[2024-12-16] MEDS ORDERED: ONDANSETRON 4 MG/2 ML VIAL IVP PRN (22:17)
[2024-12-16] MEDS ORDERED: MORPHINE SULFATE 4 MG/ML SYRINGE IV PRN (22:17)
[2024-12-16] MEDS ORDERED: HEPARIN SODIUM 1,000 UN/ML (10ML VL) IV PRN (22:22)
[2024-12-16] MEDS: cefTRIAXone 2 GM in DEXTROSE 5% IN WATER 50 ML IVPB SCH (22:54)
[2024-12-16] MEDS: HEPARIN SOD,PORK IN 0.45% NACL 25,000 UNIT in 0.45% NACL 1 250ML.BAG IV SCH (22:59)
[2024-12-16] MEDS: HEPARIN SODIUM 1,000 UN/ML (10ML VL) IV ONE (23:02)
[2024-12-16] MEDS: ALBUTEROL NEBULIZED 2.5 MG/3 ML INHALATION STA (23:03)
[2024-12-16] MEDS: FUROSEMIDE 10 MG/ML 4 ML VIAL IV SCH (23:19)
[2024-12-16] MEDS: SODIUM CHLORIDE 0.9% 1,000 ML IV SCH (23:20)
[2024-12-17] MEDS: ALBUTEROL NEBULIZED 2.5 MG/3 ML INHALATION SCH (01:23)
[2024-12-17] MEDS ORDERED: Potassium Replacement Protocol 1 EACH MISC MISCELLANE PRN (02:40)
[2024-12-17] MEDS ORDERED: Magnesium Replacement Protocol 1 EACH MISC MISCELLANE PRN (02:46)
--- NOTE | 2024-12-17 02:49 | P.CNPUL ---
History of Present Illness Consult date: 12/17/24 Requesting physician: Mark Castelan Reason for consult: COPD Chief complaint: Shortness of breath, hematuria History of present illness: Patient is a 79-year-old male with past medical history significant for former tobacco dependence, COPD, and bladder cancer. His PCP is Dr. Rafal Olivarez. Presented to emergency department with a chief complaint of severe shortness of breath, chest congestion, and increased cough with clear sputum. Also, was having tanya hematuria over the last 24 hours. Workup in the emergency department including a chest x-ray showing small bilateral pleural effusions and left basilar patchy airspace opacity which could represent compressive atelectasis or infectious process. CBC: WBC count 10.2, hemoglobin 9.7, platelets 309. CMP: Sodium 133, potassium 3.2, chloride 103, serum bicarb 23, BUN 20, creatinine 1, glucose 138. LFTs not elevated. Urinalysis positive for proteinuria, blood, leukocytes. Troponins elevated 0.247 and 0.43 respectively. NT proBNP 738. EKG: Sinus rhythm with bigeminal PVCs, rate 100 bpm, patient was previously started on IV heparin. Patient currently being evaluated in the emergency department. He is resting comfortably on 2 L/min nasal cannula. Does not appear in respiratory distress. Denies any chest pain, heart palpitations, syncopal events, orthopnea, lower extremity edema. Does report history of COPD. He is a former tobacco smoker quit approximately 5 years ago. Previously smoked 1/2 pack/day for over 50 years. Endorses increased work of breathing over the last 2 to 3 days. Associated cough with clear sputum production. Denies any purulent sputum. Denies any hemoptysis. Denies any fevers or chills. Previously loaded with IV Solu-Medrol and given multiple breathing treatments in the ED. Was started on IV Lasix 40 mg twice daily. He is producing blood tinged urine. No clots. Patient states that he has history of bladder cancer, that was diagnosed back in 2021. He was previously receiving bladder installations, and stopped following up. Denies any dysuria. Denies any flank pain. Denies history of kidney stones. Denies any nausea, vomiting, diarrhea, melena, hematochezia. Vital signs are stable. Review of Systems Constitutional: Denies chills, Denies fever, Denies night sweats, Denies poor appetite, Denies weight gain, Denies weight loss Ears, nose, mouth and throat: Denies headache, Denies nasal congestion, Denies nasal discharge, Denies post-nasal drip, Denies sinus pain, Denies sinus pressure, Denies sore throat Cardiovascular: Reports shortness of breath, Denies chest pain, Denies leg edema, Denies lightheadedness, Denies orthopnea, Denies palpitations, Denies paroxysmal nocturnal dyspnea, Denies syncope Respiratory: Reports congestion, Reports cough with sputum, Reports dyspnea, Denies hemoptysis, Denies home oxygen, Denies wheezing Gastrointestinal: Denies abdominal pain, Denies constipation, Denies diarrhea, Denies hematemesis, Denies melena, Denies nausea, Denies vomiting Genitourinary: Reports hematuria, Denies dysuria, Denies flank pain, Denies urinary frequency, Denies urinary retention Musculoskeletal: Denies limitation of motion Integumentary: Denies rash, Denies unusual bruising Neurological: Denies head injury, Denies headaches, Denies seizures, Denies syncope Psychiatric: Denies anxiety, Denies depression Past Medical History Past Medical History: Hypertension Additional Past Medical History / Comment(s): Glaucoma History of Any Multi-Drug Resistant Organisms: None Reported Additional Past Surgical History / Comment(s): Cataract surgery Past Psychological History: No Psychological Hx Reported Smoking Status: Current every day smoker Past Alcohol Use History: Occasional Past Drug Use History: None Reported Medications and Allergies Home Medications Medication Instructions Recorded Confirmed Type Tamsulosin HCl [Flomax] 0.4 mg PO DAILY 01/22/22 12/17/24 History Albuterol Sulfate [Albuterol 2 puff INHALATION RT-QID PRN 12/17/24 12/17/24 History Sulfate Hfa] Ascorbic Acid [Vitamin C] 1,000 mg PO DAILY 12/17/24 12/17/24 History Aspirin EC [Ecotrin Low Dose] 81 mg PO DAILY 12/17/24 12/17/24 History Escitalopram [Lexapro] 20 mg PO DAILY 12/17/24 12/17/24 History Finasteride [Proscar] 5 mg PO DAILY 12/17/24 12/17/24 History LORazepam [Ativan] 0.5 mg PO HS PRN 12/17/24 12/17/24 History Latanoprost [Latanoprost 0.005%] 1 drop BOTH EYES HS 12/17/24 12/17/24 History Timolol 0.5% Ophth Soln [Timoptic 1 drop BOTH EYES BID 12/17/24 12/17/24 History 0.5% Ophth Soln] valACYclovir HCL [Valtrex] 500 mg PO DAILY 12/17/24 12/17/24 History Allergies Allergy/AdvReac Type Severity Reaction Status Date / Time No Known Allergies Allergy Verified 12/17/24 09:14 Physical Exam Vitals: Vital Signs Temp Pulse Resp BP Pulse Ox 12/17/24 02:10 96 18 105/45 95 12/17/24 01:32 95 12/17/24 01:23 97 12/16/24 23:21 92 20 142/79 97 12/16/24 23:03 96 12/16/24 21:15 101 H 12/16/24 20:58 94 12/16/24 20:27 18 12/16/24 20:18 97.9 F 104 H 20 121/81 95 Intake and Output 12/16/24 12/16/24 12/17/24 14:59 22:59 06:59 Other: Voiding Method Toilet Weight 108.862 kg GENERAL EXAM: Alert, 79-year-old obese male, on 2 L/min nasal cannula, comfortable in no apparent distress. HEAD: Normocephalic and atraumatic EYES: Normal reaction of pupils, equal size. NOSE: Clear with pink turbinates. THROAT: No erythema or exudates. NECK: No masses, no JVD. CHEST: No chest wall deformity. LUNGS: Equal air entry with no crackles, wheeze, rhonchi or dullness. No conversational dyspnea or accessory muscle use.. CVS: S1 and S2 normal with no audible murmur, regular rhythm. No extra heart sounds ABDOMEN: No hepatosplenomegaly, active bowel sounds, no guarding or rigidity. SPINE: No scoliosis or deformity SKIN: No rashes CENTRAL NERVOUS SYSTEM: No focal deficits, tone is normal in all 4 extremities. EXTREMITIES: There is no peripheral edema, clubbing, or cyanosis. Peripheral pulses are intact. Results - Laboratory Findings CBC and BMP: 12/17/24 03:00 12/17/24 03:00 PT/INR, D-dimer PT 10.9 sec (10.0-12.5) 12/16/24 20:56 INR 1.0 (<1.2) 12/16/24 20:56 Abnormal lab findings: Abnormal Labs 12/16/24 12/16/24 12/16/24 20:56 20:56 20:56 WBC 10.20 H RBC 3.50 L Hgb 9.7 L Hct 29.1 L Neutrophils # 8.18 H Sodium 133 L Potassium 3.2 L Glucose 138 H Troponin I 0.247 H* Total Protein 6.2 L Albumin 3.2 L Urine Protein Urine Blood Ur Leukocyte Esterase Urine RBC Urine WBC 12/16/24 12/16/24 21:47 23:55 WBC RBC Hgb Hct Neutrophils # Sodium Potassium Glucose Troponin I 0.430 H* Total Protein Albumin Urine Protein 1+ H Urine Blood Large H Ur Leukocyte Esterase Moderate H Urine RBC >182 H Urine WBC 181 H - Diagnostic Findings Chest x-ray: image reviewed Assessment and Plan Assessment: Acute non-ST elevation CT, previously started on IV heparin in the ED Chronic obstructive pulmonary disease Acute hypoxemic respiratory failure, currently on 2 L/min nasal cannula, chest x-ray remarkable for cardiomegaly, small bilateral pleural effusions, and left lower lobe opacity concerning for compressive atelectasis or infectious process. proBNP only 738. Tanya hematuria Acute blood loss anemia, hemoglobin 9.7 g/dL History of bladder cancer Hypokalemia, replace per protocol Hypertension Former tobacco dependence Plan: Patient's medications, labs, imaging reviewed Continue supplemental oxygen to maintain oxygen saturation 92% or greater Continue combination of DuoNebs and IV Solu-Medrol Covered empirically in the ED on antibiotics Continue IV Lasix 40 mg twice daily Monitor replace electrolytes per protocol Transthoracic echocardiogram ordered Continues on IV heparin Cardiology is consulted Monitor hematuria Consult urology Hemodynamics are stable We will continue to follow I have personally seen and examined the patient, performed the documentation and the assessment and plan as written. Number of minutes spent on the visit:20 This is a joint evaluation that was done along with the nurse practitioner. This evaluation was done and 31 minutes. The patient presented to the hospital with chest pain and shortness of breath. The patient has blood loss anemia as the patient was having episodes of hematuria with known history of bladder cancer. The patient's hemoglobin was lower compared to his baseline and the most recent hemoglobin is at 9.5. The patient is currently on IV heparin based on an underlying acute non-ST segment elevation myocardial infarction with abnormal troponins. Echocardiogram was performed this morning and the patient was found to have a preserved LV function with an ejection fraction of 55 to 60%, RV is enlarged and there is mild mitral and tricuspid regurgitation. No pericardial effusion. The patient is currently on DuoNeb updrafts. The patient is on IV Rocephin as an empiric antibiotic coverage. The patient is on IV heparin. Will monitor hemoglobin. Will watch for any signs of hematuria. Will continue the bronchodilators. Will continue the steroids. Cardiology consultation. Will continue to follow and make further recommendations based on his progress. Time with Patient: Greater than 30
[2024-12-17] MEDS: POTASSIUM CHLORIDE ER 20 MEQ TAB.ER PO SCH (03:06)
[2024-12-17] MEDS: MAGNESIUM SULFATE-D5W PMX 1 GM in DEXTROSE/WATER 1 100ML.BAG IVPB ONE (03:07)
[2024-12-17 03:27] LABS: Basophils # (A) 0.01 10*3/uL (0.00-0.10); Basophils % (A) 0.1 %; HCT 29.3 % (39.6-50.0); HGB 9.5 g/dL (13.0-17.0); Lymphocytes # (A) 0.43 10*3/uL (0.90-5.00); Lymphocytes % (A) 5.7 %; MCH 27.4 pg (27.0-32.0); MCHC 32.4 g/dL (32.0-37.0); MCV 84.4 fL (80.0-97.0); Mean Platelet Volume 10.5 fL (9.5-12.2); Monocytes # (A) 0.11 10*3/uL (0.20-1.00); Monocytes % (A) 1.4 %; Neutrophils # (A) 7.02 10*3/uL (1.80-7.70); Neutrophils % (A) 92.4 %; Platelet Count 298 10*3/uL (140-440); RBC 3.47 10*6/uL (4.40-5.60); RDW 14.4 % (11.5-14.5)
[2024-12-17 03:44] LABS: ALT 19 U/L (4-49); AST 26 U/L (17-59); African American GFR (CKD) 72 (>60 ml/min/1.73 sqM); Albumin 3.1 g/dL (3.5-5.0); Alkaline Phosphatase 82 U/L (38-126); Anion Gap 10 mmol/L; Blood Urea Nitrogen 20 mg/dL (9-20); Calcium 9.1 mg/dL (8.4-10.2); Carbon Dioxide 24 mmol/L (22-30); Chloride 101 mmol/L (98-107); Glucose 200 mg/dL (74-99); Magnesium 1.8 mg/dL (1.6-2.3); Non-African American GFR(CKD) 62 (>60 ml/min/1.73 sqM); Phosphorus 4.1 mg/dL (2.5-4.5); Potassium 3.6 mmol/L (3.5-5.1); Sodium 135 mmol/L (137-145); Total Bilirubin 0.4 mg/dL (0.2-1.3); Total Protein 6.2 g/dL (6.3-8.2)
[2024-12-17] MEDS: methylPREDNISolone SOD SUCCI 125 MG/2 ML VIAL IV SCH (07:02)
[2024-12-17] MEDS: IPRATROPIUM-ALBUTEROL 3 ML NEB INHALATION SCH (07:23)
[2024-12-17] MEDS: ASPIRIN 81 MG PO SCH (08:50)
--- NOTE | 2024-12-17 08:56 | P.CRDCN ---
History of Present Illness History of present illness: HISTORY OF PRESENT ILLNESS: This is a 79-year-old male with a past medical history significant for hypertension, bladder cancer and former nicotine dependence. Patient does not follow with a cathode washer. We have been asked to see the patient in consultation for elevated troponins. Patient examined at the bedside in the emergency room. Patient states that he started having hematuria yesterday. He also reports feeling short of breath that started yesterday as well. He reports having some chest discomfort only when he is struggling to breathe. He denies any chest pain or pressure at the time of examination. Patient does report a history of bladder cancer and states that he underwent " some treatments and some scraping". He states that he stopped following up with physicians for his bladder cancer and is unsure if this has ever been in remission or if it is still active. Patient was found to have elevated troponins and was started on IV heparin. He denies any known history of CAD. He is a former cigarette smoker and states he quit smoking about 5 years ago. DIAGNOSTICS: - EKG reveals sinus tachycardia with bigeminy. - Chest xray small bilateral pleural effusions with left basilar patchy airspace opacities which may represent atelectasis versus infiltrate. - Laboratory data: WBC 7.60. Hemoglobin 9.5. Platelet count 298. Sodium 135. Potassium 3.6. BUN 20. Creatinine 1.13. Troponin 0.247. 0.430. 0.505. proBNP 738. - Current home cardiac medication list is unknown as medication list has not been verified at the time of this dictation. - No previous echocardiogram, stress test, or cardiac catheterization available in EMR for review REVIEW OF SYSTEMS: At the time of my exam: CONSTITUTIONAL: Denies fever or chills. HEENT: Denies blurred vision, vision changes, or eye pain. Denies hemoptysis CARDIOVASCULAR: Denies chest pain. Denies orthopnea. Denies PND. Denies palpitations RESPIRATORY: Denies shortness of breath. GASTROINTESTINAL: Denies abdominal pain. Denies nausea or vomiting. HEMATOLOGIC: Denies bleeding disorders. GENITOURINARY: Denies any blood in urine. SKIN: Denies pruitis. Denies rash. PHYSICAL EXAM: VITAL SIGNS: Reviewed. GENERAL: Well-developed in no acute distress. HEENT: Head is normocephalic. Pupils are equal, round. Sclerae anicteric. Mucous membranes of the mouth are moist. Neck supple. No JVD or thyromegaly LUNGS: Respirations even and unlabored. Lungs essentially clear to auscultation bilaterally. HEART: Regular rate and rhythm. S1 and S2 heard. ABDOMEN: Soft. Nondistended. Nontender. EXTREMITIES: Normal range of motion. No clubbing or cyanosis. Peripheral pulses intact. No lower extremity edema NEUROLOGIC: Awake and alert. Oriented x 3. ASSESSMENT: Hematuria Acute blood loss anemia, secondary to above History of bladder cancer Non-STEMI Hypertension Former nicotine dependence PLAN: Obtain 2D echo to assess cardiac structure and function Discontinue IV heparin secondary to hematuria and anemia Add aspirin and atorvastatin Continue with medical management at this time. No plans for cardiac catheterization currently. Await evaluation from urology regarding bladder cancer and hematuria Further recommendations pending patient course Nurse practitioner note has been reviewed by physician. Signing provider agrees with the documented findings, assessment, and plan of care documented by HIGHWAY MAINTENANCE WORKER as a scribe. Past Medical History Past Medical History: Hypertension Additional Past Medical History / Comment(s): Glaucoma History of Any Multi-Drug Resistant Organisms: None Reported Additional Past Surgical History / Comment(s): Cataract surgery Past Psychological History: No Psychological Hx Reported Smoking Status: Current every day smoker Past Alcohol Use History: Occasional Past Drug Use History: None Reported Medications and Allergies Home Medications Medication Instructions Recorded Confirmed Type Lisinopril-Hctz 20-12.5 mg 1 tab PO DAILY 05/15/18 01/22/22 History [Zestoretic 20-12.5] Amoxic-Pot Clav 875-125Mg 1 tab PO Q12HR 1 Days #20 tab 01/22/22 Rx [Augmentin 875-125] Tamsulosin HCl [Flomax] 0.4 mg PO DAILY 01/22/22 01/22/22 History predniSONE [Deltasone] 20 mg PO BID #10 tab 01/22/22 Rx Phenazopyridine [Pyridium] 100 mg PO TID PRN 2 Days #6 tablet 02/07/22 Rx Sulfamethox-Tmp 800-160Mg [Bactrim 1 tab PO Q12HR 10 Days #20 tab 02/07/22 Rx DS 800-160 mg] Acetaminophen-Codeine 300-30mg 1 tab PO Q6H PRN 3 Days #12 tablet 07/16/24 Rx [Tylenol w/codeine #3] Allergies Allergy/AdvReac Type Severity Reaction Status Date / Time No Known Allergies Allergy Verified 12/16/24 20:26 Physical Exam Vitals: Vital Signs Temp Pulse Resp BP Pulse Ox 12/17/24 07:35 74 12/17/24 07:23 70 12/17/24 07:05 73 18 125/77 97 12/17/24 02:10 96 18 105/45 95 12/17/24 01:32 95 12/17/24 01:23 97 12/16/24 23:21 92 20 142/79 97 12/16/24 23:03 96 12/16/24 21:15 101 H 12/16/24 20:58 94 12/16/24 20:27 18 12/16/24 20:18 97.9 F 104 H 20 121/81 95 Intake and Output 12/16/24 12/17/24 12/17/24 22:59 06:59 14:59 Other: Voiding Method Toilet Weight 108.862 kg Results 12/17/24 03:00 12/17/24 03:00 Cardiac Enzymes 12/16/24 12/16/24 12/16/24 Range/Units 20:56 20:56 23:55 AST 25 (17-59) U/L Troponin I 0.247 H* 0.430 H* (0.000-0.034) ng/mL 12/17/24 12/17/24 Range/Units 03:00 03:00 AST 26 (17-59) U/L Troponin I 0.505 H* (0.000-0.034) ng/mL Coagulation 12/16/24 12/17/24 Range/Units 20:56 05:40 PT 10.9 (10.0-12.5) sec APTT 22.0 44.0 H (22.0-30.0) sec CBC 12/16/24 12/17/24 Range/Units 20:56 03:00 WBC 10.20 H 7.60 (4.50-10.00) 10*3/uL RBC 3.50 L 3.47 L (4.40-5.60) 10*6/uL Hgb 9.7 L 9.5 L (13.0-17.0) g/dL Hct 29.1 L 29.3 L (39.6-50.0) % Plt Count 309 298 (140-440) 10*3/uL Comprehensive Metabolic Panel 12/16/24 12/17/24 Range/Units 20:56 03:00 Sodium 133 L 135 L (137-145) mmol/L Potassium 3.2 L 3.6 (3.5-5.1) mmol/L Chloride 103 101 (98-107) mmol/L Carbon Dioxide 23 24 (22-30) mmol/L BUN 20 20 (9-20) mg/dL Creatinine 1.00 1.13 (0.66-1.25) mg/dL Glucose 138 H 200 H (74-99) mg/dL Calcium 8.9 9.1 (8.4-10.2) mg/dL AST 25 26 (17-59) U/L ALT 17 19 (4-49) U/L Alkaline Phosphatase 82 82 (38-126) U/L Total Protein 6.2 L 6.2 L (6.3-8.2) g/dL Albumin 3.2 L 3.1 L (3.5-5.0) g/dL Current Medications Generic Name Dose Route Start Last Admin Trade Name Freq PRN Reason Stop Dose Admin Albuterol/Ipratropium 3 ml 12/17/24 08:00 12/17/24 07:23 Ipratropium-Albuterol 3 Ml Neb INHALATION 3 ml RT-QID ORQUIDEA Administration Furosemide 40 mg 12/16/24 23:00 12/16/24 23:19 Furosemide 10 Mg/Ml 4 Ml Vial IV 40 mg Q12H ORQUIDEA Administration Heparin Sodium (Porcine) 0 unit 12/16/24 22:22 Heparin Sodium 1,000 Un/Ml (10ml Vl) IV PER PROTOCOL PRN Low PTT Protocol Sodium Chloride 1,000 mls @ 20 mls/hr 12/16/24 22:30 12/16/24 23:20 Saline 0.9% IV Not Given .Q24H ORQUIDEA Ceftriaxone Sodium 2 gm/ 50 mls @ 100 mls/hr 12/16/24 22:30 12/16/24 22:54 Dextrose/Water IVPB 100 mls/hr Q24HR ORQUIDEA Administration Protocol Heparin Sodium/Sodium Chloride 250 mls @ 10 mls/hr 12/16/24 22:30 12/16/24 22:59 25,000 unit/ Sodium Chloride IV 9.186 units/kg/hr .Q24H ORQUIDEA 10 mls/hr Administration Protocol 9.186 UNITS/KG/HR Methylprednisolone Sodium Succinate 60 mg 12/17/24 06:00 12/17/24 07:02 Methylprednisolone Sod Succi 125 Mg/2 Ml Vial IV 60 mg Q6HR ORQUIDEA Administration Miscellaneous Information 1 each 12/17/24 02:40 Potassium Replacement Protocol 1 Each Misc MISCELLANE DAILY PRN Per Protocol Protocol Miscellaneous Information 1 each 12/17/24 02:46 Magnesium Replacement Protocol 1 Each Misc MISCELLANE DAILY PRN Per Protocol Protocol Morphine Sulfate 4 mg 12/16/24 22:17 Morphine Sulfate 4 Mg/Ml Syringe IV Q4HR PRN Severe Pain (Scale 7 to 10) Naloxone HCl 0.2 mg 12/16/24 22:12 Naloxone 0.4 Mg/Ml 1 Ml Vial IV Q2M PRN Opioid Reversal Ondansetron HCl 4 mg 12/16/24 22:17 Ondansetron 4 Mg/2 Ml Vial IVP Q8HR PRN Nausea And Vomiting Intake and Output 12/16/24 12/17/24 12/17/24 22:59 06:59 14:59 Other: Voiding Method Toilet Weight 108.862 kg 12/17/24 03:00 12/17/24 03:00
[2024-12-17] MEDS ORDERED: DEXTROSE 50% SYRINGE 50 ML IVP PRN ×2 (09:00)
[2024-12-17] MEDS: PANTOPRAZOLE 40 MG/10 ML VIAL IVP SCH (09:33)
[2024-12-17 09:55] LABS: Glucose,Whole Blood 203 mg/dL (70-110)
[2024-12-17] MEDS: INSULIN LISPRO (HumaLOG) 100 UNIT/ML 10 mL VL SQ SCH (10:20)
[2024-12-17] MEDS: TAMSULOSIN 0.4 MG CAP.ER.24H PO SCH (10:30)
[2024-12-17] MEDS: FINASTERIDE 5 MG TAB PO SCH (10:30)
[2024-12-17] MEDS: INSULIN GLARGINE (LANTUS) 100 UNIT/ML SYR SQ SCH (10:30)
[2024-12-17] MEDS: TIMOLOL 0.5% OPHTH DROPS 5 ML BTL BOTH EYES SCH (11:55)
--- NOTE | 2024-12-17 12:07 | P.HPIM ---
History of Present Illness H&P Date: 12/17/24 Chief Complaint: Shortness of breath, cough, chest pain, hematuria This is a 79-year-old gentleman with past medical history significant for hypertension, glaucoma, bladder cancer, prior nicotine dependence reports he quit 5 to 8 years ago, obesity and multiple medical issues presented to the ER with complaints of progressive shortness of breath accompanied by productive co ugh -white phlegm , diaphoresis and nonradiating midsternal chest pain x 3 days, intervals lasting 20 to 30-minutes. Reports hematuria x 1 day; disclosed that he has a history of recurrent blood in his urine since 2021-usually lasting 1 to 2 days then spontaneously resolves until the next occurrence. Urinal with [employer] colored urine at bedside. Denies flank pain, dysuria or frequency. states he had followed with urology, Dr. Sal in 2021, received "instillations"" for 5 to 6 weeks, surgery had been recommended. Patient did not return for any further follow-up treatment/visits. On admission, troponins elevated, 0.247, 0.430, 0.505, EKG reported sinus tachycardia, bigeminal PVCs.IV heparin drip initiated-currently discontinued related to hematuria. Maintained on nebulized bronchodilators, antibiotics, IV push Lasix, maintaining O2 sats in the 90s on 3 L nasal cannula. Chest x-ray reports small bilateral pleural effusions with left basilar patchy airspace opacities which may represent atelectasis versus infiltrate. Procalcitonin within normal limits, less than 0.2. reports f luctuating midsternal chest pressure with coughing and shortness of breath. Afebrile, normal WBC. Hemoglobin 9.5, platelets 298, sodium 135, potassium 3.6, bicarb 24, BUN 20, creatinine 1.13, magnesium 1.8. Glucose ranging from 130s to [id number]. BNP 738. UA reporting 1+ protein, large blood, negative nitrates, moderate leukocytes, greater than 182 RBCs, 181 WBCs. Review of Systems ROS Statement: Those systems with pertinent positive or pertinent negative responses have been documented in the HPI. ROS Other: All systems not noted in ROS Statement are negative. Past Medical History Past Medical History: Hypertension Additional Past Medical History / Comment(s): Glaucoma History of Any Multi-Drug Resistant Organisms: None Reported Additional Past Surgical History / Comment(s): Cataract surgery Past Psychological History: No Psychological Hx Reported Smoking Status: Current every day smoker Past Alcohol Use History: Occasional Past Drug Use History: None Reported Medications and Allergies Home Medications Medication Instructions Recorded Confirmed Type Tamsulosin HCl [Flomax] 0.4 mg PO DAILY 01/22/22 12/17/24 History Albuterol Sulfate [Albuterol 2 puff INHALATION RT-QID PRN 12/17/24 12/17/24 History Sulfate Hfa] Ascorbic Acid [Vitamin C] 1,000 mg PO DAILY 12/17/24 12/17/24 History Aspirin EC [Ecotrin Low Dose] 81 mg PO DAILY 12/17/24 12/17/24 History Escitalopram [Lexapro] 20 mg PO DAILY 12/17/24 12/17/24 History Finasteride [Proscar] 5 mg PO DAILY 12/17/24 12/17/24 History LORazepam [Ativan] 0.5 mg PO HS PRN 12/17/24 12/17/24 History Latanoprost [Latanoprost 0.005%] 1 drop BOTH EYES HS 12/17/24 12/17/24 History Timolol 0.5% Ophth Soln [Timoptic 1 drop BOTH EYES BID 12/17/24 12/17/24 History 0.5% Ophth Soln] valACYclovir HCL [Valtrex] 500 mg PO DAILY 12/17/24 12/17/24 History Allergies Allergy/AdvReac Type Severity Reaction Status Date / Time No Known Allergies Allergy Verified 12/17/24 09:14 Physical Exam Vitals: Vital Signs Temp Pulse Resp BP Pulse Ox 12/17/24 08:45 79 20 141/87 94 L 12/17/24 07:35 74 12/17/24 07:23 70 12/17/24 07:05 73 18 125/77 97 12/17/24 02:10 96 18 105/45 95 12/17/24 01:32 95 12/17/24 01:23 97 12/16/24 23:21 92 20 142/79 97 12/16/24 23:03 96 12/16/24 21:15 101 H 12/16/24 20:58 94 12/16/24 20:27 18 12/16/24 20:18 97.9 F 104 H 20 121/81 95 Intake and Output 12/16/24 12/17/24 12/17/24 22:59 06:59 14:59 Other: Voiding Method Toilet Weight 108.862 kg PHYSICAL EXAM: VITAL SIGNS: [Reviewed] GENERAL: Obese elderly male, alert and oriented x 3, no acute distress HEENT: Atraumatic, normocephalic, conjunctivae normal. eyes normal. Sclerae anicteric. Poor dentition. NECK: Supple, no JVD. No thyromegaly. CARDIOVASCULAR: S1, S2 regular. No murmur RESPIRATION: Unlabored, equal air entry, diminished throughout. ABDOMEN: Soft, obese,distended, right lower quadrant tender . No guarding. no masses palpable. Positive bowel sounds. LEGS: No edema. no swelling , no clubbing, no cyanosis, peripheral pulses intact. NERVOUS SYSTEM: Cranial N 2-12 grossly normal.No focal deficits. Skin: Warm and dry, no rash Results CBC & Chem 7: 12/18/24 06:20 12/18/24 06:20 Labs: Abnormal Lab Results - Last 24 Hours (Table) 12/16/24 12/16/24 12/16/24 Range/Units 20:56 20:56 20:56 WBC 10.20 H (4.50-10.00) 10*3/uL RBC 3.50 L (4.40-5.60) 10*6/uL Hgb 9.7 L (13.0-17.0) g/dL Hct 29.1 L (39.6-50.0) % Neutrophils # 8.18 H (1.80-7.70) 10*3/uL Lymphocytes # (0.90-5.00) 10*3/uL Monocytes # (0.20-1.00) 10*3/uL Eosinophils # (0.04-0.35) 10*3/uL APTT (22.0-30.0) sec Sodium 133 L (137-145) mmol/L Potassium 3.2 L (3.5-5.1) mmol/L Glucose 138 H (74-99) mg/dL Troponin I 0.247 H* (0.000-0.034) ng/mL Total Protein 6.2 L (6.3-8.2) g/dL Albumin 3.2 L (3.5-5.0) g/dL Urine Protein (Negative) Urine Blood (Negative) Ur Leukocyte Esterase (Negative) Urine RBC (0-5) /hpf Urine WBC (0-5) /hpf 12/16/24 12/16/24 12/17/24 Range/Units 21:47 23:55 03:00 WBC (4.50-10.00) 10*3/uL RBC (4.40-5.60) 10*6/uL Hgb (13.0-17.0) g/dL Hct (39.6-50.0) % Neutrophils # (1.80-7.70) 10*3/uL Lymphocytes # (0.90-5.00) 10*3/uL Monocytes # (0.20-1.00) 10*3/uL Eosinophils # (0.04-0.35) 10*3/uL APTT (22.0-30.0) sec Sodium (137-145) mmol/L Potassium (3.5-5.1) mmol/L Glucose (74-99) mg/dL Troponin I 0.430 H* 0.505 H* (0.000-0.034) ng/mL Total Protein (6.3-8.2) g/dL Albumin (3.5-5.0) g/dL Urine Protein 1+ H (Negative) Urine Blood Large H (Negative) Ur Leukocyte Esterase Moderate H (Negative) Urine RBC >182 H (0-5) /hpf Urine WBC 181 H (0-5) /hpf 12/17/24 12/17/24 12/17/24 Range/Units 03:00 03:00 05:40 WBC (4.50-10.00) 10*3/uL RBC 3.47 L (4.40-5.60) 10*6/uL Hgb 9.5 L (13.0-17.0) g/dL Hct 29.3 L (39.6-50.0) % Neutrophils # (1.80-7.70) 10*3/uL Lymphocytes # 0.43 L (0.90-5.00) 10*3/uL Monocytes # 0.11 L (0.20-1.00) 10*3/uL Eosinophils # 0.00 L (0.04-0.35) 10*3/uL APTT 44.0 H (22.0-30.0) sec Sodium 135 L (137-145) mmol/L Potassium (3.5-5.1) mmol/L Glucose 200 H (74-99) mg/dL Troponin I (0.000-0.034) ng/mL Total Protein 6.2 L (6.3-8.2) g/dL Albumin 3.1 L (3.5-5.0) g/dL Urine Protein (Negative) Urine Blood (Negative) Ur Leukocyte Esterase (Negative) Urine RBC (0-5) /hpf Urine WBC (0-5) /hpf Assessment and Plan Assessment: NSTEMI Acute COPD exacerbation.chest x-ray remarkable for cardiomegaly, small bilateral pleural effusions, and left lower lobe opacity concerning for compressive atelectasis or infectious process. proBNP only 738. Acute hypoxic respiratory failure secondary to all the above Hematuria Acute blood loss anemia History of bladder cancer Hypertension Glaucoma Former nicotine dependence Morbid obesity, BMI 32 Hypokalemia Plan: Continue on current medication regime ,monitoring and symptomatic treatment. Echo pending. Evaluated by cardiology, currently recommending medi batsheva management. Aggressive pulmonary toileting with nebulized bronchodilators, IV steroids, antibiotics. Low-dose Lantus insulin with NovoLog sliding scale ordered with close monitoring of Accu-Cheks. Hemoglobin A1c pending. pulmonary following. urology consult in place. The impression and plan of care has been dictated as directed. : I performed a history and examination of this patient, discussed the same with the dictator. I agree with the dictator's note ,documented as a scribe. Any additional findings or plans will be noted.
--- NOTE | 2024-12-17 12:42 | CA ---
Transthoracic Echo Report Name: Ren Garduno Age: 79 Gender: M : 1945 Exam Date: 12/17/2024 07:36 Exam Location: [facility] Ht (in): 73 Wt (lb): 240 Ordering Physician: Mark Castelan DO Attending/Referring Phys: [id number], [employer] Head Ashlyn Duran, JEANNE Procedure CPT: Indications: Heart failure Cardiac Hx: Technical Quality: Technically difficult study Contrast 1: Definity Total Dose (mL): 2 Contrast 2: Total Dose (mL): MEASUREMENTS (Male / Female) Normal Values 2D ECHO LV Diastolic Diameter PLAX 4.3 cm 4.2 - 5.9 / 3.9 - 5.3 cm LV Systolic Diameter PLAX 3.2 cm IVS Diastolic Thickness 1.6 cm 0.6 - 1.0 / 0.6 - 0.9 cm LVPW Diastolic Thickness 1.4 cm 0.6 - 1.0 / 0.6 - 0.9 cm LV Relative Wall Thickness 0.7 RV Internal Dim ED PLAX 3.8 cm LA Systolic Diameter LX 3.4 cm 3.0 - 4.0 / 2.7 - 3.8 cm M-MODE Aortic Root Diameter MM 4.1 cm AV Cusp Separation MM 2.1 cm DOPPLER AV Peak Velocity 165.2 cm/s AV Peak Gradient 10.9 mmHg MV Area PHT 3.4 cm??? Mitral E Point Velocity 85.2 cm/s Mitral A Point Velocity 117.4 cm/s Mitral E to A Ratio 0.7 MV Deceleration Time 226.4 ms TR Peak Velocity 281.7 cm/s TR Peak Gradient 31.7 mmHg Right Ventricular Systolic Press 36.3 mmHg FINDINGS Left Ventricle Left ventricular ejection fraction is estimated at 55-60 %. Left ventricular cavity size normal. Moderately increased septal wall thickness. No obvious regional wall motion abnormalities. Right Ventricle Severe right ventricular dilatation. Mild pulmonary hypertension. Right Atrium Right atrium not well visualized. Left Atrium Normal left atrial size. No left atrial thrombus or mass present. Mitral Valve Structurally normal mitral valve. No mitral stenosis, regurgitation or prolapse. Aortic Valve Trileaflet aortic valve. No aortic valve stenosis or regurgitation. Tricuspid Valve Structurally normal tricuspid valve. Mild tricuspid regurgitation. Pulmonic Valve Pulmonic valve not well visualized. Pericardium No pericardial effusion. Left pleural effusion. Aorta Mild aortic dilatation at the level of the sinuses of valsalva 41 mm CONCLUSIONS Normal LV size and systolic function. Right ventricle is enlarged to a moderate extent. Mild mitral and tricuspid regurgitation. No pericardial effusion. Prominent aortic root. Difficult study echo contrast was used Previewed by: Dr. Nixon Llamas MD (Electronically Signed) Final Date: 17 Dec 2024 12:41
[2024-12-17 16:44] LABS: Glucose,Whole Blood 189 mg/dL (70-110)
[2024-12-17 20:03] LABS: Glucose,Whole Blood 187 mg/dL (70-110)
[2024-12-17] MEDS: ATORVASTATIN 80 MG TAB PO SCH (20:36)
[2024-12-17] MEDS: LATANOPROST 0.005% OPHTH DROPS 2.5 ML BTL BOTH EYES SCH (20:58)
[2024-12-17] MEDS: LORazepam 0.5 MG TAB PO PRN (21:05)
--- NOTE | 2024-12-17 21:10 | P.GSCN ---
History of Present Illness Consult date: 12/17/24 Reason for Consult: Gross hematuria Requesting physician: Rafal Olivarez History of present illness: The patient is a 79-year-old white male admitted with dyspnea and chest pain. He is being treated for COPD exacerbation. He underwent transurethral resection of a large bladder tumor in August [address] Sal. 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 He completed a 6-week course of intravesical gemcitabine in January 2023. Urine cytology in February 2023 was positive, and the patient was advised to receive a 6-week course of intravesical BCG. However, he did not receive t reatment due to cost and has not been seen back since that time. He has been noted to have Coca-Cola colored urine recently. Review of Systems - Genitourinary Reports dysuria, Reports hematuria, Denies flank pain Past Medical History Past Medical History: Hypertension Additional Past Medical History / Comment(s): Glaucoma History of Any Multi-Drug Resistant Organisms: None Reported Additional Past Surgical History / Comment(s): Cataract surgery Past Psychological History: No Psychological Hx Reported Smoking Status: Current every day smoker Past Alcohol Use History: Occasional Past Drug Use History: None Reported Medications and Allergies Home Medications Medication Instructions Recorded Confirmed Type Tamsulosin HCl [Flomax] 0.4 mg PO DAILY 01/22/22 12/17/24 History Albuterol Sulfate [Albuterol 2 puff INHALATION RT-QID PRN 12/17/24 12/17/24 History Sulfate Hfa] Ascorbic Acid [Vitamin C] 1,000 mg PO DAILY 12/17/24 12/17/24 History Aspirin EC [Ecotrin Low Dose] 81 mg PO DAILY 12/17/24 12/17/24 History Escitalopram [Lexapro] 20 mg PO DAILY 12/17/24 12/17/24 History Finasteride [Proscar] 5 mg PO DAILY 12/17/24 12/17/24 History LORazepam [Ativan] 0.5 mg PO HS PRN 12/17/24 12/17/24 History Latanoprost [Latanoprost 0.005%] 1 drop BOTH EYES HS 12/17/24 12/17/24 History Timolol 0.5% Ophth Soln [Timoptic 1 drop BOTH EYES BID 12/17/24 12/17/24 History 0.5% Ophth Soln] valACYclovir HCL [Valtrex] 500 mg PO DAILY 12/17/24 12/17/24 History Allergies Allergy/AdvReac Type Severity Reaction Status Date / Time No Known Allergies Allergy Verified 12/17/24 09:14 Surgical - Exam Vital Signs Temp Pulse Resp BP Pulse Ox 97.9 F 104 H 20 121/81 95 12/16/24 20:18 12/16/24 20:18 12/16/24 20:18 12/16/24 20:18 12/16/24 20:18 - General well developed, well nourished, no distress - Abdomen Abdomen: soft, non tender, no guarding, no rigid, no rebound - Genitourinary normal penis with no external lesions, testicles non-tender - Psychiatric oriented to time, oriented to person, oriented to place, speech is normal, memory intact Results - Labs 12/17/24 03:00 12/17/24 03:00 Abnormal Lab Results - Last 24 Hours (Table) 12/16/24 12/16/24 12/16/24 Range/Units 20:56 20:56 20:56 WBC 10.20 H (4.50-10.00) 10*3/uL RBC 3.50 L (4.40-5.60) 10*6/uL Hgb 9.7 L (13.0-17.0) g/dL Hct 29.1 L (39.6-50.0) % Neutrophils # 8.18 H (1.80-7.70) 10*3/uL Lymphocytes # (0.90-5.00) 10*3/uL Monocytes # (0.20-1.00) 10*3/uL Eosinophils # (0.04-0.35) 10*3/uL APTT (22.0-30.0) sec Sodium 133 L (137-145) mmol/L Potassium 3.2 L (3.5-5.1) mmol/L Glucose 138 H (74-99) mg/dL Troponin I 0.247 H* (0.000-0.034) ng/mL Total Protein 6.2 L (6.3-8.2) g/dL Albumin 3.2 L (3.5-5.0) g/dL Urine Protein (Negative) Urine Blood (Negative) Ur Leukocyte Esterase (Negative) Urine RBC (0-5) /hpf Urine WBC (0-5) /hpf 12/16/24 12/16/24 12/17/24 Range/Units 21:47 23:55 03:00 WBC (4.50-10.00) 10*3/uL RBC (4.40-5.60) 10*6/uL Hgb (13.0-17.0) g/dL Hct (39.6-50.0) % Neutrophils # (1.80-7.70) 10*3/uL Lymphocytes # (0.90-5.00) 10*3/uL Monocytes # (0.20-1.00) 10*3/uL Eosinophils # (0.04-0.35) 10*3/uL APTT (22.0-30.0) sec Sodium (137-145) mmol/L Potassium (3.5-5.1) mmol/L Glucose (74-99) mg/dL Troponin I 0.430 H* 0.505 H* (0.000-0.034) ng/mL Total Protein (6.3-8.2) g/dL Albumin (3.5-5.0) g/dL Urine Protein 1+ H (Negative) Urine Blood Large H (Negative) Ur Leukocyte Esterase Moderate H (Negative) Urine RBC >182 H (0-5) /hpf Urine WBC 181 H (0-5) /hpf 12/17/24 12/17/24 12/17/24 Range/Units 03:00 03:00 05:40 WBC (4.50-10.00) 10*3/uL RBC 3.47 L (4.40-5.60) 10*6/uL Hgb 9.5 L (13.0-17.0) g/dL Hct 29.3 L (39.6-50.0) % Neutrophils # (1.80-7.70) 10*3/uL Lymphocytes # 0.43 L (0.90-5.00) 10*3/uL Monocytes # 0.11 L (0.20-1.00) 10*3/uL Eosinophils # 0.00 L (0.04-0.35) 10*3/uL APTT 44.0 H (22.0-30.0) sec Sodium 135 L (137-145) mmol/L Potassium (3.5-5.1) mmol/L Glucose 200 H (74-99) mg/dL Troponin I (0.000-0.034) ng/mL Total Protein 6.2 L (6.3-8.2) g/dL Albumin 3.1 L (3.5-5.0) g/dL Urine Protein (Negative) Urine Blood (Negative) Ur Leukocyte Esterase (Negative) Urine RBC (0-5) /hpf Urine WBC (0-5) /hpf Diabetes panel 12/16/24 12/17/24 Range/Units 20:56 03:00 Sodium 133 L 135 L (137-145) mmol/L Potassium 3.2 L 3.6 (3.5-5.1) mmol/L Chloride 103 101 (98-107) mmol/L Carbon Dioxide 23 24 (22-30) mmol/L BUN 20 20 (9-20) mg/dL Creatinine 1.00 1.13 (0.66-1.25) mg/dL Glucose 138 H 200 H (74-99) mg/dL Calcium 8.9 9.1 (8.4-10.2) mg/dL AST 25 26 (17-59) U/L ALT 17 19 (4-49) U/L Alkaline Phosphatase 82 82 (38-126) U/L Total Protein 6.2 L 6.2 L (6.3-8.2) g/dL Albumin 3.2 L 3.1 L (3.5-5.0) g/dL Calcium panel 12/16/24 12/17/24 Range/Units 20:56 03:00 Calcium 8.9 9.1 (8.4-10.2) mg/dL Phosphorus 4.1 (2.5-4.5) mg/dL Albumin 3.2 L 3.1 L (3.5-5.0) g/dL Pituitary panel 12/16/24 12/17/24 Range/Units 20:56 03:00 Sodium 133 L 135 L (137-145) mmol/L Potassium 3.2 L 3.6 (3.5-5.1) mmol/L Chloride 103 101 (98-107) mmol/L Carbon Dioxide 23 24 (22-30) mmol/L BUN 20 20 (9-20) mg/dL Creatinine 1.00 1.13 (0.66-1.25) mg/dL Glucose 138 H 200 H (74-99) mg/dL Calcium 8.9 9.1 (8.4-10.2) mg/dL Adrenal panel 12/16/24 12/17/24 Range/Units 20:56 03:00 Sodium 133 L 135 L (137-145) mmol/L Potassium 3.2 L 3.6 (3.5-5.1) mmol/L Chloride 103 101 (98-107) mmol/L Carbon Dioxide 23 24 (22-30) mmol/L BUN 20 20 (9-20) mg/dL Creatinine 1.00 1.13 (0.66-1.25) mg/dL Glucose 138 H 200 H (74-99) mg/dL Calcium 8.9 9.1 (8.4-10.2) mg/dL Total Bilirubin 0.5 0.4 (0.2-1.3) mg/dL AST 25 26 (17-59) U/L ALT 17 19 (4-49) U/L Alkaline Phosphatase 82 82 (38-126) U/L Total Protein 6.2 L 6.2 L (6.3-8.2) g/dL Albumin 3.2 L 3.1 L (3.5-5.0) g/dL Assessment and Plan (1) Malignant neoplasm of bladder, unspecified Current Visit: Yes Status: Acute Code(s): C67.9 - MALIGNANT NEOPLASM OF BLADDER, UNSPECIFIED SNOMED Code(s): 392027061 Plan: The patient's hematuria is almost certainly the result of recurrent bladder cancer. I have ordered a CT Urogram for further evaluation. Time with Patient: Greater than 30
[2024-12-18 02:43] LABS: Glucose,Whole Blood 158 mg/dL (70-110)
[2024-12-18 06:20] LABS: Glucose,Whole Blood 142 mg/dL (70-110)
[2024-12-18 08:34] LABS: HCT 28.7 % (39.6-50.0); HGB 9.4 g/dL (13.0-17.0); MCH 27.5 pg (27.0-32.0); MCHC 32.8 g/dL (32.0-37.0); MCV 83.9 fL (80.0-97.0); Mean Platelet Volume 10.9 fL (9.5-12.2); Platelet Count 338 10*3/uL (140-440); RBC 3.42 10*6/uL (4.40-5.60); RDW 14.6 % (11.5-14.5); WBC 16.97 10*3/uL (4.50-10.00)
[2024-12-18 08:42] LABS: African American GFR (CKD) 77 (>60 ml/min/1.73 sqM); Anion Gap 8 mmol/L; Blood Urea Nitrogen 28 mg/dL (9-20); Calcium 9.4 mg/dL (8.4-10.2); Carbon Dioxide 23 mmol/L (22-30); Chloride 105 mmol/L (98-107); Glucose 123 mg/dL (74-99); Non-African American GFR(CKD) 67 (>60 ml/min/1.73 sqM); Potassium 4.1 mmol/L (3.5-5.1); Sodium 136 mmol/L (137-145)
[2024-12-18] MEDS: METOPROLOL TARTRATE 25 MG TAB PO SCH (11:29)
[2024-12-18] MEDS: FUROSEMIDE 10 MG/ML 4 ML VIAL IV SCH (11:29)
[2024-12-18 11:37] LABS: Glucose,Whole Blood 142 mg/dL (70-110)
--- NOTE | 2024-12-18 11:58 | P.PN ---
Subjective HISTORY OF PRESENT ILLNESS: This is a 79-year-old male with a past medical history significant for hypertension, bladder cancer and former nicotine dependence. 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 We have been asked to see the patient in consultation for elevated troponins. Patient examined at the bedside in the emergency room. Patient states that he started having hematuria yesterday. He also reports feeling short of breath that started yesterday as well. He reports having some chest discomfort only when he is struggling to breathe. He denies any chest pain or pressure at the time of examination. Patient does report a history of bladder cancer and states that he underwent " some treatments and some scraping". He states that he stopped following up with physicians for his bladder cancer and is unsure if this has ever been in remission or if it is still active. Patient was found to have elevated troponins and was started on IV heparin. He denies any known history of CAD. He is a former cigarette smoker and states he quit smoking about 5 years ago. DIAGNOSTICS: - EKG reveals sinus tachycardia with bigeminy. - Chest xray small bilateral pleural effusions with left basilar patchy airspace opacities which may represent atelectasis versus infiltrate. - Laboratory data: WBC 7.60. Hemoglobin 9.5. Platelet count 298. Sodium 135. Potassium 3.6. BUN 20. Creatinine 1.13. Troponin 0.247. 0.430. 0.505. proBNP 738. - Current home cardiac medication list is unknown as medication list has not been verified at the time of this dictation. - No previous echocardiogram, stress test, or cardiac catheterization available in EMR for review 12/18/2024 Patient examined at the bedside. Patient currently denies any chest pain or pressure. He currently denies any shortness of breath at the time of examination. He states he is feeling better compared to yesterday. 2D echo completed revealing normal LV systolic function with no significant valvular dysfunction noted. PHYSICAL EXAM: VITAL SIGNS: Reviewed. GENERAL: Well-developed in no acute distress. HEENT: Head is normocephalic. Pupils are equal, round. Sclerae anicteric. Mucous membranes of the mouth are moist. Neck supple. No JVD or thyromegaly LUNGS: Respirations even and unlabored. Lungs essentially clear to auscultation bilaterally. HEART: Regular rate and rhythm. S1 and S2 heard. ABDOMEN: Soft. Nondistended. Nontender. EXTREMITIES: Normal range of motion. No clubbing or cyanosis. Peripheral pulses intact. No lower extremity edema NEUROLOGIC: Awake and alert. Oriented x 3. ASSESSMENT: Hematuria Acute blood loss anemia, secondary to above History of bladder cancer Non-STEMI Hypertension Former nicotine dependence PLAN: Continue aspirin and atorvastatin Continue with medical management at this time. No plans for cardiac cathete rization currently. Patient placed on IV Lasix per primary medicine. Will defer diuretics to prim dony medicine. Patient currently not in acute CHF exacerbation at the time of examination. Urology following regarding bladder cancer and hematuria. CT urogram pending. Further recommendations pending patient course Nurse practitioner note has been reviewed by physician. Signing provider agrees with the documented findings, assessment, and plan of care documented by LICENSE CLERK as a scribe. Objective - Vital Signs Vital signs: Vital Signs Temp 97.9 F 12/18/24 11:27 Pulse 73 12/18/24 11:27 Resp 20 12/18/24 11:27 BP 153/81 12/18/24 11:27 Pulse Ox 97 12/18/24 11:27 FiO2 Intake & Output 12/17/24 12/18/24 12/18/24 18:59 06:59 18:59 Intake Total 540 20 Output Total 300 Balance 540 -280 Weight 109 kg Intake: IV 20 Invasive Line 1 10 Invasive Line 2 10 Oral 540 Output: Urine 300 Other: Voiding Method Urinal - Labs CBC & Chem 7: 12/18/24 06:20 12/18/24 06:20 Labs: Abnormal Lab Results - Last 24 Hours (Table) 12/17/24 12/17/24 12/18/24 Range/Units 16:42 20:02 02:42 WBC (4.50-10.00) 10*3/uL RBC (4.40-5.60) 10*6/uL Hgb (13.0-17.0) g/dL Hct (39.6-50.0) % Sodium (137-145) mmol/L BUN (9-20) mg/dL Glucose (74-99) mg/dL POC Glucose (mg/dL) 189 H 187 H 158 H (70-110) mg/dL 12/18/24 12/18/24 12/18/24 Range/Units 06:19 06:20 06:20 WBC 16.97 H (4.50-10.00) 10*3/uL RBC 3.42 L (4.40-5.60) 10*6/uL Hgb 9.4 L (13.0-17.0) g/dL Hct 28.7 L (39.6-50.0) % Sodium 136 L (137-145) mmol/L BUN 28 H (9-20) mg/dL Glucose 123 H (74-99) mg/dL POC Glucose (mg/dL) 142 H (70-110) mg/dL 12/18/24 Range/Units 11:35 WBC (4.50-10.00) 10*3/uL RBC (4.40-5.60) 10*6/uL Hgb (13.0-17.0) g/dL Hct (39.6-50.0) % Sodium (137-145) mmol/L BUN (9-20) mg/dL Glucose (74-99) mg/dL POC Glucose (mg/dL) 142 H (70-110) mg/dL Microbiology - Last 24 Hours (Table) 12/17/24 12:03 Urine Culture - Final Urine,Voided
--- NOTE | 2024-12-18 12:26 | P.PN ---
Subjective Progress Note Date: 12/18/24 H&P Date: 12/17/24 Chief Complaint: Shortness of breath, cough, chest pain, hematuria This is a 79-year-old gentleman with past medical history significant for hypertension, glaucoma, bladder cancer, prior nicotine dependence reports he quit 5 to 8 years ago, obesity and multiple medical issues presented to the ER with complaints of progressive shortness of breath accompanied by productive cough -white phlegm , diaphoresis and nonradiating midsternal chest pain x 3 days, intervals lasting 20 to 30-minutes. Reports hematuria x 1 day; disclosed that he has a history of recurrent blood in his urine since 2021-usually lasting 1 to 2 days then spontaneously resolves until the next occurrence. Urinal with Coca-[employer]a colored urine at bedside. Denies flank pain, dysuria or frequency. states he had followed with urology, Dr. Sal in 2021, received " instillations"" for 5 to 6 weeks, surgery had been recommended. Patient did not return for any further follow-up treatment/visits. On admission, troponins elevated, 0.247, 0.430, 0.505, EKG reported sinus tachycardia, bigeminal PVCs.IV heparin drip initiated-currently discontinued related to hematuria. Maintained on nebulized bronchodilators, antibiotics, IV push Lasix, maintaining O2 sats in the 90s on 3 L nasal cannula. Chest x-ray reports small bilateral pleural effusions with left basilar patchy airspace opacities which may represent atelectasis versus infiltrate. Procalcitonin within normal limits, less than 0.2. reports fluctuating midsternal chest pressure with coughing and shortness of breath. Afebrile, normal WBC. Hemoglobin 9.5, platelets 298, sodium 135, potassium 3.6, bicarb 24, BUN 20, creatinine 1.13, magnesium 1.8. Glucose ranging from 130s to [id number]. BNP 738. UA reporting 1+ protein, large blood, negative nitrates, moderate leukocytes, greater than 182 RBCs, 181 WBCs. 12/18/2024 staff and patient reports that he struggled all night with shortness of breath, wheeziness, requiring additional prn nebulized treatments. Patient currently complaining of shortness of breath, difficulty breathing, mildly tachycardic-up to the low 1 teens, respiratory rate 22, requiring 3 L nasal cannula to maintain O2 sats In the mid to low 90s, scattered crackles. Hy pertensive, echocardiogram reported normal LV size and systolic function, right ventricle is enlarged to moderate extent, mild mitral and tricuspid regurgitation, prominent aortic root-aortic root diameter 4.1 cm, difficult study, echo contrast used. Denies chest pain, palpitations. Evaluated by u ismaelogy, urogram CT ordered. Hemoglobin stable, 9.4, platelets 338. Bicarb 23, BUN 28, creatinine 1.07. Maintained on nebulized bronchodilators, steroids with blood sugars controlled. hemoglobin A1c's Objective - Vital Signs Vital signs: Vital Signs Temp 97.9 F 12/18/24 11:27 Pulse 88 12/18/24 12:07 Resp 20 12/18/24 11:27 BP 153/81 12/18/24 11:27 Pulse Ox 97 12/18/24 11:27 FiO2 Intake & Output 12/17/24 12/18/24 12/18/24 18:59 06:59 18:59 Intake Total 540 20 Output Total 300 Balance 540 -280 Weight 109 kg Intake: IV 20 Invasive Line 1 10 Invasive Line 2 10 Oral 540 Output: Urine 300 Other: Voiding Method Urinal - Exam PHYSICAL EXAM: VITAL SIGNS: [Reviewed] GENERAL: alert and oriented x 3, sitting up in bed, respiratory effort increased. HEENT: Atraumatic, normocephalic, conjunctivae normal. eyes normal. Sclerae anicteric. Poor dentition. NECK: Supple, no JVD. CARDIOVASCULAR: S1, S2 regular. No murmur RESPIRATION: equal air entry, tachypneic, fine bibasilar crackles. ABDOMEN: Soft, obese,distended, right lower quadrant tender . No rigidity, positive bowel sounds. LEGS: No edema, swelling or clubbing. no cyanosis, peripheral pulses intact. NERVOUS SYSTEM: Cranial N 2-12 grossly normal.No focal deficits. Skin: Warm and dry, no rash - Labs CBC & Chem 7: 12/18/24 06:20 12/19/24 06:38 Labs: Abnormal Lab Results - Last 24 Hours (Table) 12/17/24 12/17/24 12/18/24 Range/Units 16:42 20:02 02:42 WBC (4.50-10.00) 10*3/uL RBC (4.40-5.60) 10*6/uL Hgb (13.0-17.0) g/dL Hct (39.6-50.0) % Sodium (137-145) mmol/L BUN (9-20) mg/dL Glucose (74-99) mg/dL POC Glucose (mg/dL) 189 H 187 H 158 H (70-110) mg/dL 12/18/24 12/18/24 12/18/24 Range/Units 06:19 06:20 06:20 WBC 16.97 H (4.50-10.00) 10*3/uL RBC 3.42 L (4.40-5.60) 10*6/uL Hgb 9.4 L (13.0-17.0) g/dL Hct 28.7 L (39.6-50.0) % Sodium 136 L (137-145) mmol/L BUN 28 H (9-20) mg/dL Glucose 123 H (74-99) mg/dL POC Glucose (mg/dL) 142 H (70-110) mg/dL 12/18/24 Range/Units 11:35 WBC (4.50-10.00) 10*3/uL RBC (4.40-5.60) 10*6/uL Hgb (13.0-17.0) g/dL Hct (39.6-50.0) % Sodium (137-145) mmol/L BUN (9-20) mg/dL Glucose (74-99) mg/dL POC Glucose (mg/dL) 142 H (70-110) mg/dL Microbiology - Last 24 Hours (Table) 12/17/24 12:03 Urine Culture - Final Urine,Voided Assessment and Plan Assessment: NSTEMI, cardiology following recommending medical manage Acute COPD exacerbation.chest x-ray remarkable for cardiomegaly, small to moderate bilateral pleural effusions, and left lower lobe opacity concerning for compressive atelectasis or infectious process. proBNP only 738. Procalcitonin within normal limits, less than 0.20. Acute hypoxic respiratory failure, multifactorial, secondary to all the above. Hematuria, suspect recurrent bladder cancer, urology following. Acute blood loss anemia secondary to the above History of bladder cancer Hypertension Glaucoma Former nicotine dependence Morbid obesity, BMI 32 Hypokalemia Hemoglobin A1c 6.0 Constipation Plan: Continue on current medication regime ,monitoring and symptomatic treatment. Resume diuretics, possible worsening bilateral pleural effusions.chest x-ray ordered, pulmonary following. Aggressive pulmonary toileting with nebulized bronchodilators, IV steroids, empiric antibiotics. MiraLAX ordered for constipation. CT urogram pending. medical management as per [id number], aspirin and statin. Close monitoring of renal function, electrolytes with repeat labs ordered for a.m. prognosis guarded given multiple complex medical issues. The impression and plan of care has been dictated as directed. : I performed a history and examination of this patient, discussed the same with the dictator. I agree with the dictator's note ,documented as a scribe. Any additional findings or plans will be noted.
--- NOTE | 2024-12-18 12:30 | CT ---
EXAMINATION TYPE: CT urogram wo/w con DATE OF EXAM: 12/18/2024 12:06 PM COMPARISON: 06/07/2022. CT abdomen pelvis most recent from CLINICAL INDICATION: Male, 79 years old with history of Hematuria, history of bladder cancer; [facility], He maturia, history of bladder cancer TECHNIQUE: Urogram with imaging of the abdomen and pelvis. Coronal and sagittal reformats were performed. 2D and 3D reconstructions are performed to assist visualization of the urinary tract on a separate workstat ion. Contrast used:100 ml mL of Isovue 370 without and with IV Contrast, CT DLP: 3642.9 mGycm, Automated exposure control for dose reduction was used. FINDINGS: Heart and lungs are normal size with trace anterior basilar pericardial fluid. Moderate left and [id number] right pleural effusions. Prominent adjacent atelectasis partially visualized left infrahilar region. Small hiatal hernia. Liver shows slight nodular contour superiorly. Correlate for underlying cirrhosis. There is a 2.7 cm cyst redemonstrated inferior right liver lobe. No abnormal gallbladder distention. Adrenal glands, spleen, and pancreas show no gross abnormality. Generalized anasarca change. Prominent edematous change throughout the retroperitoneum and scattered throughout the mesentery. Ext ensive edema located around the region of the pancreatic head, kyle hepatis, and right je of the d iaphragm. There is moderate bilateral hydronephrosis with delayed excretion of contrast from the kidneys. No fi lling of the ureters on the delayed phase. No dilated small bowel or free air. There is mild perihepatic ascites and additional mild fluid track ing down the right paracolic gutter. Scattered [id number] stool. Mildly redundant sigmoid colon. No pericolonic inflammatory change. Mild circumferential bladder wall thickening. Greater degree of eccentric thickening along the right bladder dome. Prostatomegaly 5.9 cm while. Median lobe hypertrophy extending into the base of the bladder. However, there appears to be new lobulated soft tissue left posterior bladder wall measuring 3.6 cm just michael cent, axial image 63 and 64. Extensive soft tissue stranding throughout the pelvic fat with prominent presacral edema and infiltration along the right iliac chain and retroperitoneum. Density along the retroperitoneum including some more nodular areas adjacent 1.7 cm near the aortic bifurcation. 9 mm soft tissue nodule anterior to the left side of the bladder within the pelvis. Bones: Moderate degenerative disc disease mid lumbar spine. No osseous destructive process seen. IMPRESSION: 1. Circumferential bladder wall thickening with greater degree of eccentric thickening along the righ t bladder dome. In addition, there appears to be a mural based mass measuring 3.6 cm left posterior b ladder wall. 2. 9 mm soft tissue deposit anterior left pelvis adjacent to the bladder. Additionally, soft tissue s tranding and infiltration throughout the pelvis, right iliac chain, and retroperitoneum. Some of thes e areas have a more nodular configuration such as at the aortic bifurcation measuring 1.7 cm. Unclear if this represents extensive edema. Metastatic disease not excluded at this time. 3. Moderate symmetric hydronephrosis possibly due to the ureters coursing through these infiltrative changes. No excretion of contrast into the ureters even on the delayed most scan. 4. Prostatomegaly at 5.9 cm wide. 5. Generalized anasarca with moderate left and [id number] right pleural effusions. Mild abdomi nal ascites. Correlate for fluid overload state. Possible underlying cirrhosis. Further clinical cm elation recommended. [facility], Workstation: [id number], 12/18/2024 12:28 PM
[2024-12-18 12:45] VITALS: BMI 31.6
--- NOTE | 2024-12-18 13:42 | P.PN ---
Subjective Progress Note Date: 12/18/24 Principal diagnosis: Hematuria, bladder cancer Mr. Christian's urine is very faintly blood-tinged today. Objective - Vital Signs Vital signs: Vital Signs Temp 97.9 F 12/18/24 11:27 Pulse 88 12/18/24 12:07 Resp 20 12/18/24 11:27 BP 153/81 12/18/24 11:27 Pulse Ox 97 12/18/24 11:27 FiO2 Intake & Output 12/17/24 12/18/24 12/18/24 18:59 06:59 18:59 Intake Total 540 20 138 Output Total 300 500 Balance 540 280 -362 Weight 109 kg 109 kg Intake: IV 20 20 Invasive Line 1 10 10 Invasive Line 2 10 10 Oral 540 118 Output: Urine 300 500 Other: Voiding Method Urinal Urinal - Constitutional General appearance: Present: average body habitus, cooperative, no acute distress - Cardiovascular Details: No lower extremity edema - Psychiatric Psychiatric: Present: A&O x's 3 - Labs CBC & Chem 7: 12/18/24 06:20 12/18/24 06:20 Labs: Abnormal Lab Results - Last 24 Hours (Table) 12/17/24 12/17/24 12/18/24 Range/Units 16:42 20:02 02:42 WBC (4.50-10.00) 10*3/uL RBC (4.40-5.60) 10*6/uL Hgb (13.0-17.0) g/dL Hct (39.6-50.0) % Sodium (137-145) mmol/L BUN (9-20) mg/dL Glucose (74-99) mg/dL POC Glucose (mg/dL) 189 H 187 H 158 H (70-110) mg/dL 12/18/24 12/18/24 12/18/24 Range/Units 06:19 06:20 06:20 WBC 16.97 H (4.50-10.00) 10*3/uL RBC 3.42 L (4.40-5.60) 10*6/uL Hgb 9.4 L (13.0-17.0) g/dL Hct 28.7 L (39.6-50.0) % Sodium 136 L (137-145) mmol/L BUN 28 H (9-20) mg/dL Glucose 123 H (74-99) mg/dL POC Glucose (mg/dL) 142 H (70-110) mg/dL 12/18/24 Range/Units 11:35 WBC (4.50-10.00) 10*3/uL RBC (4.40-5.60) 10*6/uL Hgb (13.0-17.0) g/dL Hct (39.6-50.0) % Sodium (137-145) mmol/L BUN (9-20) mg/dL Glucose (74-99) mg/dL POC Glucose (mg/dL) 142 H (70-110) mg/dL Microbiology - Last 24 Hours (Table) 12/17/24 12:03 Urine Culture - Final Urine,Voided Assessment and Plan Assessment: CT scan shows bilateral moderate hydronephrosis, intra-abdominal and retroperitoneal edema, and bladder masses (predominantly left-sided). (1) Malignant neoplasm of bladder, unspecified Current Visit: Yes Status: Acute Code(s): C67.9 - MALIGNANT NEOPLASM OF BLADDER, UNSPECIFIED SNOMED Code(s): 808646244 Plan: The patient appears to have recurrent bladder cancer. He will require cystoscopy under anesthesia with bladder tumor resection. However, this is not urgent and he will require further evaluation and treatment of the intra-abdominal/retroperitoneal edema as well as the dyspnea. No urologic intervention is planned during this hospitalization. Mr. Christian will follow-up with Dr. Sal upon discharge. Please notify me if we can be of any further assistance during this hospitalization.
--- NOTE | 2024-12-18 13:54 | P.PN ---
Subjective Progress Note Date: 12/18/24 Patient is a 79-year-old male with past medical history significant for former tobacco dependence, COPD, and bladder cancer. His PCP is Dr. Rafal Olivarez. Presented to emergency department with a chief complaint of severe shortness of breath, chest congestion, and increased cough with clear sputum. Also, was having tanya hematuria over the last 24 hours. Workup in the emergency department including a chest x-ray showing small bilateral pleural effusions and left basilar patchy airspace opacity which could represent compressive atelectasis or infectious process. CBC: WBC count 10.2, hemoglobin 9.7, platelets 309. CMP: Sodium 133, potassium 3.2, chloride 103, serum bicarb 23, BUN 20, creatinine 1, glucose 138. LFTs not elevated. Urinalysis positive for proteinuria, blood, leukocytes. Troponins elevated 0.247 and 0.43 respectively. NT proBNP 738. EKG: Sinus rhythm with bigeminal PVCs, rate 100 bpm, patient was previously started on IV heparin. Patient currently being evaluated in the em ergency department. He is resting comfortably on 2 L/min nasal cannula. Does not appear in respiratory distress. Denies any chest pain, heart palpitations, syncopal events, orthopnea, lower extremity edema. Does report history of COPD. He is a former tobacco smoker quit approximately 5 years ago. Previously smoked 1/2 pack/day for over 50 years. Endorses increased work of breathing over the l ast 2 to 3 days. Associated cough with clear sputum production. Denies any purulent sputum. Denies any hemoptysis. Denies any fevers or chills. Previously loaded with IV Solu-Medrol and given multiple breathing treatments in the ED. Was started on IV Lasix 40 mg twice daily. He is producing blood tinged urine. No clots. Patient states that he has history of bladder cancer, that was diagnosed back in 2021. He was previously receiving bladder installations, and stopped following up. Denies any dysuria. Denies any flank pain. Denies history of kidney stones. Denies any nausea, vomiting, diarrhea, melena, hematochezia. Vital signs are stable. 12/18/2024, the patient is being seen for a follow-up. The patient is doing well. No specific complaints. The patient is currently off of IV heparin. Still having some limited hematuria and the patient was seen by urology and the urine output is showing faint blood tinged output. The CT urogram was ordered and the CAT scan showed bilateral moderate hydronephrosis in addition to intra- abdominal and retroperitoneal edema and bilateral bladder masses. There was circumferential bladder wall thickening with greater degree of the eccentric thickening along the right bladder dome. Another 3.6 cm mural based mass was seen in the left posterior bladder wall. There was also prostatic enlargement and generalized anasarca with moderate left and small to moderate right-sided pleural effusion and mild abdominal ascites consistent with fluid overload. The findings are consistent with recurrent bladder cancer. The patient will require cystoscopy and bladder tumor resection. Meanwhile, his hemoglobin is stable at 9.4. The white cell count is 16.5. Electrolytes are all stable, BUN is 28 with a creatinine of 1.07. Urine cultures are still negative and the patient remains on IV Rocephin. He is also on Lasix 40 mg IV every 12 hours and the patient is in a negative fluid balance. He is currently on 3 L of oxygen by nasal cannula with a pulse ox of 97%. He remains on DuoNeb updrafts. He remains on IV Solu- Medrol for COPD exacerbation. Objective - Vital Signs Vital signs: Vital Signs Temp 97.9 F 12/18/24 00:00 Pulse 101 H 12/18/24 07:50 Resp 22 12/18/24 07:50 BP 177/86 12/18/24 07:50 Pulse Ox 95 12/18/24 07:50 FiO2 Intake & Output 12/17/24 12/18/24 12/18/24 18:59 06:59 18:59 Intake Total 540 20 Output Total 300 Balance 540 -280 Weight 109 kg Intake: IV 20 Invasive Line 1 10 Invasive Line 2 10 Oral 540 Output: Urine 300 Other: Voiding Method Urinal - Exam GENERAL EXAM: Alert, 79-year-old obese male, on 2 L/min nasal cannula, comfortable in no apparent distress. HEAD: Normocephalic and atraumatic EYES: Normal reaction of pupils, equal size. NOSE: Clear with pink turbinates. THROAT: No erythema or exudates. NECK: No masses, no JVD. CHEST: No chest wall deformity. LUNGS: Equal air entry with no crackles, wheeze, rhonchi or dullness. No conversational dyspnea or accessory muscle use.. CVS: S1 and S2 normal with no audible murmur, regular rhythm. No extra heart sounds ABDOMEN: No hepatosplenomegaly, active bowel sounds, no guarding or rigidity. SPINE: No scoliosis or deformity SKIN: No rashes CENTRAL NERVOUS SYSTEM: No focal deficits, tone is normal in all 4 extremities. EXTREMITIES: There is no peripheral edema, clubbing, or cyanosis. Peripheral pulses are intact. - Labs CBC & Chem 7: 12/18/24 06:20 12/18/24 06:20 Labs: Abnormal Lab Results - Last 24 Hours (Table) 12/17/24 12/17/24 12/18/24 Range/Units 16:42 20:02 02:42 WBC (4.50-10.00) 10*3/uL RBC (4.40-5.60) 10*6/uL Hgb (13.0-17.0) g/dL Hct (39.6-50.0) % Sodium (137-145) mmol/L BUN (9-20) mg/dL Glucose (74-99) mg/dL POC Glucose (mg/dL) 189 H 187 H 158 H (70-110) mg/dL 12/18/24 12/18/24 12/18/24 Range/Units 06:19 06:20 06:20 WBC 16.97 H (4.50-10.00) 10*3/uL RBC 3.42 L (4.40-5.60) 10*6/uL Hgb 9.4 L (13.0-17.0) g/dL Hct 28.7 L (39.6-50.0) % Sodium 136 L (137-145) mmol/L BUN 28 H (9-20) mg/dL Glucose 123 H (74-99) mg/dL POC Glucose (mg/dL) 142 H (70-110) mg/dL Assessment and Plan Assessment: Acute non-ST elevation IN, seen by cardiology and the patient was treated medically. No plans for cardiac catheterization Chronic obstructive pulmonary disease with secondary exacerbation, currently on a combination of bronchodilators and steroids Acute hypoxemic respiratory failure, currently on 2 L/min nasal cannula, chest x-ray remarkable for cardiomegaly, small to moderate-sized bilateral pleural effusions, and left lower lobe opacity concerning for compressive atelectasis or infectious process. proBNP only 738. Recurrent bladder tumor. Please refer to the results of the CT urogram. The patient also has bilateral hydronephrosis Hematuria secondary to above Acute blood loss anemia, hemoglobin is stable History of bladder cancer Hypertension Former tobacco dependence Plan: Continue supplemental oxygen to maintain oxygen saturation 92% or greater Continue combination of DuoNebs Continue IV Solu-Medrol Covered empirically with antibiotics, urine cultures negative thus far Continue IV Lasix 40 mg twice daily Monitor replace electrolytes per protocol Transthoracic echocardiogram And the patient has a preserved LV function with an ejection fraction of 55 to 60% and the patient also has right ventricular enlargement and evidence of pulmonary hypertension Cardiology is consulted, will be treated medically for now Monitor hematuria Urology consult is appreciated Hemodynamics are stable We will continue to follow Time with Patient: Greater than 30
[2024-12-18] MEDS: polyethylene glycoL 3350 17 GM POWD.PACK PO SCH (16:03)
[2024-12-18 16:21] LABS: Glucose,Whole Blood 133 mg/dL (70-110)
--- NOTE | 2024-12-18 18:04 | XR ---
EXAMINATION TYPE: XR chest 2V DATE OF EXAM: 12/18/2024 5:58 PM COMPARISON: Chest radiographs from 12/16/2024, CT urogram 12/18/2024 TECHNIQUE: XR chest 2V Frontal and lateral views of the chest. CLINICAL INDICATION:Male, 79 years old with history of hypoxia; FINDINGS: Lungs/Pleura: Small bilateral pleural effusions with associated atelectasis as seen on CT earlier tod ay. No focal consolidation or pneumothorax. Pulmonary vascularity: Unremarkable. Heart/mediastinum: Cardiomediastinal silhouette is unremarkable. Musculoskeletal: No acute osseous pathology. IMPRESSION: Small bilateral pleural effusions with associated atelectasis. [facility], , 12/18/2024 6:01 PM
[2024-12-18 20:33] LABS: Glucose,Whole Blood 160 mg/dL (70-110)
[2024-12-19 00:42] LABS: Glucose,Whole Blood 138 mg/dL (70-110)
[2024-12-19] MEDS: CALCIUM CARBONATE 500 MG CHEWABLE PO PRN (03:10)
[2024-12-19 03:54] LABS: Glucose,Whole Blood 139 mg/dL (70-110)
[2024-12-19 05:59] LABS: Glucose,Whole Blood 143 mg/dL (70-110)
[2024-12-19 08:05] LABS: African American GFR (CKD) 60 (>60 ml/min/1.73 sqM); Anion Gap 8 mmol/L; Blood Urea Nitrogen 39 mg/dL (9-20); Calcium 9.6 mg/dL (8.4-10.2); Carbon Dioxide 28 mmol/L (22-30); Chloride 99 mmol/L (98-107); Glucose 120 mg/dL (74-99); Non-African American GFR(CKD) 52 (>60 ml/min/1.73 sqM); Potassium 3.9 mmol/L (3.5-5.1); Sodium 135 mmol/L (137-145)
[2024-12-19] MEDS ORDERED: FUROSEMIDE 10 MG/ML 4 ML VIAL IV SCH (09:00)
--- NOTE | 2024-12-19 09:40 | P.PN ---
Subjective Progress Note Date: 12/19/24 H&P Date: 12/17/24 Chief Complaint: Shortness of breath, cough, chest pain, hematuria This is a 79-year-old gentleman with past medical history significant for hypertension, glaucoma, bladder cancer, prior nicotine dependence reports he quit 5 to 8 years ago, obesity and multiple medical issues presented to the ER with complaints of progressive shortness of breath accompanied by productive cough -white phlegm , diaphoresis and nonradiating midsternal chest pain x 3 days, intervals lasting 20 to 30-minutes. Reports hematuria x 1 day; disclosed that he has a history of recurrent blood in his urine since 2021-usually lasting 1 to 2 days then spontaneously resolves until the next occurrence. Urinal with [employer] colored urine at bedside. Denies flank pain, dysuria or frequency. states he had followed with urology, Dr. Sal in 2021, received " instillations"" for 5 to 6 weeks, surgery had been recommended. Patient did not return for any further follow-up treatment/visits. On admission, troponins elevated, 0.247, 0.430, 0.505, EKG reported sinus tachycardia, bigeminal PVCs.IV heparin drip initiated-currently discontinued related to hematuria. Maintained on nebulized bronchodilators, antibiotics, IV push Lasix, maintaining O2 sats in the 90s on 3 L nasal cannula. Chest x-ray reports small bilateral pleural effusions with left basilar patchy airspace opacities which may represent atelectasis versus infiltrate. Procalcitonin within normal limits, less than 0.2. reports fluctuating midsternal chest pressure with coughing and shortness of breath. Afebrile, normal WBC. Hemoglobin 9.5, platelets 298, sodium 135, potassium 3.6, bicarb 24, BUN 20, creatinine 1.13, magnesium 1.8. Glucose ranging from 130s to [id number]. BNP 738. UA reporting 1+ protein, large blood, negative nitrates, moderate leukocytes, greater than 182 RBCs, 181 WBCs. 12/18/2024 staff and patient reports that he struggled all night with shortness of breath, wheeziness, requiring additional prn nebulized treatments. Patient currently complaining of shortness of breath, difficulty breathing, mildly tachycardic-up to the low 1 teens, respiratory rate 22, requiring 3 L nasal cannula to maintain O2 sats In the mid to low 90s, audible expiratory wheezing, fine basilar crackles. Hypertensive, echocardiogram reported normal LV size and systolic function, right ventricle is enlarged to moderate extent, mild mitral and tricuspid regurgitation, prominent aortic root-aortic root diameter 4.1 cm, difficult study, echo contrast used. Denies chest pain, palpitations. Evaluated by urology, urogram CT ordered. Hemoglobin stable, 9.4, platelets 338. Bicarb 23, BUN 28, creatinine 1.07. Maintained on nebulized bronchodilators, steroids with blood sugars controlled. hemoglobin A1c's. 12/19/2024 maintained on nebulized bronchodilators, steroids, antibiotics and diuretics. Reports significant improvement in his breathing. Chest x-ray reporting small bilateral pleural effusions with associated atelectasis. Renal function worsened, bicarb 28, BUN 39, creatinine 1.31. Urine minimally blood tinged. Urogram CT completed yesterday, reporting circumferential bladder wall thickening with greater degree of eccentric thickening along the right bladder dome, appears to be a mural based mass measuring 3.6 cm left posterior bladder wall. 9 mm soft tissue deposit anterior left pelvis adjacent to the bladder. Additionally soft tissue stranding and infiltration throughout the pelvis right iliac chain and retroperitoneum. Some of these areas have a more nodular configuration such as the aorta bifurcation measuring 1.7 cm. Unclear if this represents extensive edema. Metastatic disease not excluded at this time. Moderate symmetric hydronephrosis possibly due to the ureters coursing through these infiltrative changes. No excretion of contrast into the ureters even on the delayed motor scan. Prostatomegaly at 5.9 cm wide. Generalized anasarca with moderate left and small to moderate right pleural effusions. Mild abdominal ascites. Correlate for fluid overload state. Possible underlying cirrhosis. Objective - Vital Signs Vital signs: Vital Signs Temp 98.3 F 12/18/24 20:40 Pulse 56 L 12/19/24 08:54 Resp 20 12/19/24 03:11 BP 154/81 12/19/24 03:11 Pulse Ox 98 12/19/24 08:57 FiO2 Intake & Output 12/18/24 12/19/24 12/19/24 18:59 06:59 18:59 Intake Total 158 520 Output Total 1500 1200 Balance -1342 -680 Weight 109 kg 110 kg Intake: IV 40 40 Invasive Line 1 20 20 Invasive Line 2 20 20 Oral 118 480 Output: Urine 1500 1200 Other: Voiding Method Urinal Urinal # Voids 2 - Exam PHYSICAL EXAM: VITAL SIGNS: [Reviewed] GENERAL: Pleasant,alert and oriented x 3, sitting up in chair, NAD. HEENT: Atraumatic, normocephalic, conjunctivae normal. eyes normal. Sclerae anicteric. Poor dentition. NECK: Supple, no JVD. CARDIOVASCULAR: S1, S2 regular. No murmur RESPIRATION: Unlabored, equal air entry, essentially clear to auscultation, bilateral bases diminished. ABDOMEN: Soft, obese,distended, right lower quadrant tenderness . No rigidity, positive bowel sounds. LEGS: No edema, swelling or clubbing. no cyanosis, peripheral pulses intact. NERVOUS SYSTEM: Cranial N 2-12 grossly normal.No focal deficits. Skin: Warm and dry, no rash - Labs CBC & Chem 7: 12/18/24 06:20 12/19/24 06:38 Labs: Abnormal Lab Results - Last 24 Hours (Table) 12/18/24 12/18/24 12/18/24 Range/Units 11:35 16:19 20:32 Sodium (137-145) mmol/L BUN (9-20) mg/dL Creatinine (0.66-1.25) mg/dL Glucose (74-99) mg/dL POC Glucose (mg/dL) 142 H 133 H 160 H (70-110) mg/dL 12/19/24 12/19/24 12/19/24 Range/Units 00:41 03:52 05:58 Sodium (137-145) mmol/L BUN (9-20) mg/dL Creatinine (0.66-1.25) mg/dL Glucose (74-99) mg/dL POC Glucose (mg/dL) 138 H 139 H 143 H (70-110) mg/dL 12/19/24 Range/Units 06:38 Sodium 135 L (137-145) mmol/L BUN 39 H (9-20) mg/dL Creatinine 1.31 H (0.66-1.25) mg/dL Glucose 120 H (74-99) mg/dL POC Glucose (mg/dL) (70-110) mg/dL Microbiology - Last 24 Hours (Table) 12/17/24 12:03 Urine Culture - Final Urine,Voided Assessment and Plan Assessment: NSTEMI, cardiology following recommending medical management Acute COPD exacerbation.chest x-ray remarkable for cardiomegaly, small to moderate bilateral pleural effusions, and left lower lobe opacity concerning for compressive atelectasis or infectious process. ProBNP only 738. Procalcitonin WNL,<0.20. Acute hypoxic respiratory failure, multifactorial, secondary to all the above. Intra-abdominal ,retroperitoneal edema reported per CT Hematuria, recurrent bladder cancer with possible metastasis reported per urogram CT Bilateral moderate hydronephrosis reported per CT Acute blood loss anemia secondary to the above History of bladder cancer Hypertension Glaucoma Former nicotine dependence Morbid obesity, BMI 32 Hypokalemia Hemoglobin A1c 6.0 Constipation Plan: Continue on current medication regime ,monitoring and symptomatic treatment. General surgery consulted for further evaluation of intra- abdominal/retroperitoneal edema reported per urogram CT .urology recommendations noted including outpatient cystoscopy with bladder tumor resection at a later time -not planned during this hospitalization.respiratory status significantly improved, renal function worsened, diuretics discontinued .Maintain aggressive pulmonary toileting with nebulized bronchodilators, IV steroids, empiric antibiotics. Medical management as per cardiology. Close monitoring of renal function, electrolytes with repeat labs ordered for a.m. PT/OTconsulted. Prognosis guarded given multiple complex medical issues. The impression and plan of care has been dictated as directed. : I performed a history and examination of this patient, discussed the same with the dictator. I agree with the dictator's note ,documented as a scribe. Any additional findings or plans will be noted.
--- NOTE | 2024-12-19 10:27 | P.PN ---
Subjective HISTORY OF PRESENT ILLNESS: This is a 79-year-old male with a past medical history significant for hypertension, bladder cancer and former nicotine dependence. 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 We have been asked to see the patient in consultation for elevated troponins. Patient examined at the bedside in the emergency room. Patient states that he started having hematuria yesterday. He also reports feeling short of breath that started yesterday as well. He reports having some chest discomfort only when he is struggling to breathe. He denies any chest pain or pressure at the time of examination. Patient does report a history of bladder cancer and states that he underwent " some treatments and some scraping". He states that he stopped following up with physicians for his bladder cancer and is unsure if this has ever been in remission or if it is still active. Patient was found to have elevated troponins and was started on IV heparin. He denies any known history of CAD. He is a former cigarette smoker and states he quit smoking about 5 years ago. DIAGNOSTICS: - EKG reveals sinus tachycardia with bigeminy. - Chest xray small bilateral pleural effusions with left basilar patchy airspace opacities which may represent atelectasis versus infiltrate. - Laboratory data: WBC 7.60. Hemoglobin 9.5. Platelet count 298. Sodium 135. Potassium 3.6. BUN 20. Creatinine 1.13. Troponin 0.247. 0.430. 0.505. proBNP 738. - Current home cardiac medication list is unknown as medication list has not been verified at the time of this dictation. - No previous echocardiogram, stress test, or cardiac catheterization available in EMR for review 12/18/2024 Patient examined at the bedside. Patient currently denies any chest pain or pressure. He currently denies any shortness of breath at the time of examination. He states he is feeling better compared to yesterday. 2D echo completed revealing normal LV systolic function with no significant valvular dysfunction noted. 12/19/2024 Patient examined this morning at the bedside. Patient without complaints of chest pain or pressure. He denies shortness of breath. Vital signs are stable. Creatinine worsened at 1.31. PHYSICAL EXAM: VITAL SIGNS: Reviewed. GENERAL: Well-developed in no acute distress. HEENT: Head is normocephalic. Pupils are equal, round. Sclerae anicteric. Mucous membranes of the mouth are moist. Neck supple. No JVD or thyromegaly LUNGS: Respirations even and unlabored. Lungs essentially clear to auscultation bilaterally. HEART: Regular rate and rhythm. S1 and S2 heard. ABDOMEN: Soft. Nondistended. Nontender. EXTREMITIES: Normal range of motion. No clubbing or cyanosis. Peripheral pulses intact. No lower extremity edema NEUROLOGIC: Awake and alert. Oriented x 3. ASSESSMENT: Hematuria Acute blood loss anemia, secondary to above Recurrent bladder cancer Non-STEMI Hypertension Former nicotine dependence Acute kidney injury PLAN: Continue aspirin, atorvastatin, and metoprolol Continue with medical management at this time. No plans for cardiac catheterization due to recurrent bladder cancer No further inpatient recommendations from a cardiac standpoint We will sign off. Please reconsult if needed. Nurse practitioner note has been reviewed by physician. Signing provider agrees with the documented findings, assessment, and plan of care documented by [employer] as a scribe. Objective - Vital Signs Vital signs: Vital Signs Temp 98.3 F 12/18/24 20:40 Pulse 52 L 12/19/24 09:06 Resp 20 12/19/24 03:11 BP 154/81 12/19/24 03:11 Pulse Ox 98 12/19/24 08:57 FiO2 Intake & Output 12/18/24 12/19/24 12/19/24 18:59 06:59 18:59 Intake Total 158 520 Output Total 1500 1200 Balance -1342 -680 Weight 109 kg 110 kg Intake: IV 40 40 Invasive Line 1 20 20 Invasive Line 2 20 20 Oral 118 480 Output: Urine 1500 1200 Other: Voiding Method Urinal Urinal # Voids 2 - Labs CBC & Chem 7: 12/18/24 06:20 12/19/24 06:38 Labs: Abnormal Lab Results - Last 24 Hours (Table) 12/18/24 12/18/24 12/18/24 Range/Units 11:35 16:19 20:32 Sodium (137-145) mmol/L BUN (9-20) mg/dL Creatinine (0.66-1.25) mg/dL Glucose (74-99) mg/dL POC Glucose (mg/dL) 142 H 133 H 160 H (70-110) mg/dL 12/19/24 12/19/24 12/19/24 Range/Units 00:41 03:52 05:58 Sodium (137-145) mmol/L BUN (9-20) mg/dL Creatinine (0.66-1.25) mg/dL Glucose (74-99) mg/dL POC Glucose (mg/dL) 138 H 139 H 143 H (70-110) mg/dL 12/19/24 Range/Units 06:38 Sodium 135 L (137-145) mmol/L BUN 39 H (9-20) mg/dL Creatinine 1.31 H (0.66-1.25) mg/dL Glucose 120 H (74-99) mg/dL POC Glucose (mg/dL) (70-110) mg/dL Microbiology - Last 24 Hours (Table) 12/17/24 12:03 Urine Culture - Final Urine,Voided
[2024-12-19 11:41] LABS: Glucose,Whole Blood 144 mg/dL (70-110)
--- NOTE | 2024-12-19 12:23 | US ---
EXAMINATION TYPE: US chest DATE OF EXAM: 12/19/2024 COMPARISON: Radiograph 12/18/2024 CLINICAL INDICATION: Male, 79 years old with history of pleural effusion; pleural effusion TECHNIQUE: Grayscale imaging of the chest. Targeted ultrasound of the posterior lower bilateral lester thoraces FINDINGS: EXAM MEASUREMENTS: Right Pleural Effusion pocket size: 10.3 cm - lung noted anteriorly, pocket changes with inspiration Right skin surface to fluid distance: 4.9 cm Left Pleural Effusion pocket size: 10.4 cm Left skin surface to fluid distance: 3.3 cm Right side marked for possible thoracentesis outside the dept. Left side marked for possible thoracentesis outside the dept. Pulmonologists are able to review the images in the patient?s EMR. IMPRESSIONS: Moderate left and small right pleural effusions. [facility], , 12/19/2024 12:21 PM
[2024-12-19] MEDS: SENNOSIDES-DOCUSATE SODIUM 1 EACH TAB PO SCH (12:31)
[2024-12-19] MEDS: INSULIN LISPRO (HumaLOG) 100 UNIT/ML 10 mL VL SQ SCH (12:32)
--- NOTE | 2024-12-19 16:23 | P.PN ---
Subjective Progress Note Date: 12/19/24 Patient is a 79-year-old male with past medical history significant for former tobacco dependence, COPD, and bladder cancer. His PCP is Dr. Rafal Olivarez. Presented to emergency department with a chief complaint of severe shortness of breath, chest congestion, and increased cough with clear sputum. Also, was having tanya hematuria over the last 24 hours. Workup in the emergency department including a chest x-ray showing small bilateral pleural effusions and left basilar patchy airspace opacity which could represent compressive atelectasis or infectious process. CBC: WBC count 10.2, hemoglobin 9.7, platelets 309. CMP: Sodium 133, potassium 3.2, chloride 103, serum bicarb 23, BUN 20, creatinine 1, glucose 138. LFTs not elevated. Urinalysis positive for proteinuria, blood, leukocytes. Troponins elevated 0.247 and 0.43 respectively. NT proBNP 738. EKG: Sinus rhythm with bigeminal PVCs, rate 100 bpm, patient was previously started on IV heparin. Patient currently being evaluated in the em ergency department. He is resting comfortably on 2 L/min nasal cannula. Does not appear in respiratory distress. Denies any chest pain, heart palpitations, syncopal events, orthopnea, lower extremity edema. Does report history of COPD. He is a former tobacco smoker quit approximately 5 years ago. Previously smoked 1/2 pack/day for over 50 years. Endorses increased work of breathing over the l ast 2 to 3 days. Associated cough with clear sputum production. Denies any purulent sputum. Denies any hemoptysis. Denies any fevers or chills. Previously loaded with IV Solu-Medrol and given multiple breathing treatments in the ED. Was started on IV Lasix 40 mg twice daily. He is producing blood tinged urine. No clots. Patient states that he has history of bladder cancer, that was diagnosed back in 2021. He was previously receiving bladder installations, and stopped following up. Denies any dysuria. Denies any flank pain. Denies history of kidney stones. Denies any nausea, vomiting, diarrhea, melena, hematochezia. Vital signs are stable. 12/18/2024, the patient is being seen for a follow-up. The patient is doing well. No specific complaints. The patient is currently off of IV heparin. Still having some limited hematuria and the patient was seen by urology and the urine output is showing faint blood tinged output. The CT urogram was ordered and the CAT scan showed bilateral moderate hydronephrosis in addition to intra- abdominal and retroperitoneal edema and bilateral bladder masses. There was circumferential bladder wall thickening with greater degree of the eccentric thickening along the right bladder dome. Another 3.6 cm mural based mass was seen in the left posterior bladder wall. There was also prostatic enlargement and generalized anasarca with moderate left and small to moderate right-sided pleural effusion and mild abdominal ascites consistent with fluid overload. The findings are consistent with recurrent bladder cancer. The patient will require cystoscopy and bladder tumor resection. Meanwhile, his hemoglobin is stable at 9.4. The white cell count is 16.5. Electrolytes are all stable, BUN is 28 with a creatinine of 1.07. Urine cultures are still negative and the patient remains on IV Rocephin. He is also on Lasix 40 mg IV every 12 hours and the patient is in a negative fluid balance. He is currently on 3 L of oxygen by nasal cannula with a pulse ox of 97%. He remains on DuoNeb updrafts. He remains on IV Solu- Medrol for COPD exacerbation. On 12/19/2024, the patient has been weaned down to 2 L of oxygen by nasal cannula. The patient is feeling well. No specific complaints. There is post acute non-ST segment elevation myocardial infarction. He is free of any chest pain. Urology also evaluate this patient for recurrent bladder tumor. No active hematuria at this point. He does have bilateral pleural effusion. His creatinine is 1.3 and the BUN is send 39. Response to diuretics have been somewhat suboptimal and the patient is currently off diuretics. However, he does have bilateral pleural effusions. For that reason, ultrasound of the chest was done in consideration for thoracentesis. Noted he does have possibly a moderate-sized left-sided pleural effusion and he may benefit from thoracentesis. Objective - Vital Signs Vital signs: Vital Signs Temp 97.6 F 12/19/24 09:15 Pulse 73 12/19/24 09:15 Resp 20 12/19/24 09:15 BP 139/72 12/19/24 09:15 Pulse Ox 97 12/19/24 09:15 FiO2 Intake & Output 05/15/25 05/16/25 05/16/25 18:59 06:59 18:59 Intake Total 158 520 20 Output Total 1500 1200 Balance -1342 -124 20 Weight 109 kg 110 kg Intake: IV 40 40 20 Invasive Line 1 20 20 10 Invasive Line 2 20 20 10 Oral 118 480 Output: Urine 1500 1200 Other: Voiding Method Urinal Urinal Urinal # Voids 2 - Exam GENERAL EXAM: Alert, 79-year-old obese male, on 2 L/min nasal cannula, comfortable in no apparent distress. HEAD: Normocephalic and atraumatic EYES: Normal reaction of pupils, equal size. NOSE: Clear with pink turbinates. THROAT: No erythema or exudates. NECK: No masses, no JVD. CHEST: No chest wall deformity. LUNGS: Equal air entry with no crackles, wheeze, rhonchi or dullness. No conversational dyspnea or accessory muscle use.. CVS: S1 and S2 normal with no audible murmur, regular rhythm. No extra heart sounds ABDOMEN: No hepatosplenomegaly, active bowel sounds, no guarding or rigidity. SPINE: No scoliosis or deformity SKIN: No rashes CENTRAL NERVOUS SYSTEM: No focal deficits, tone is normal in all 4 extremities. EXTREMITIES: There is no peripheral edema, clubbing, or cyanosis. Peripheral pulses are intact. - Labs CBC & Chem 7: 12/18/24 06:20 12/19/24 06:38 Labs: Abnormal Lab Results - Last 24 Hours (Table) 12/18/24 12/18/24 12/18/24 Range/Units 11:35 16:19 20:32 Sodium (137-145) mmol/L BUN (9-20) mg/dL Creatinine (0.66-1.25) mg/dL Glucose (74-99) mg/dL POC Glucose (mg/dL) 142 H 133 H 160 H (70-110) mg/dL 12/19/24 12/19/24 12/19/24 Range/Units 00:41 03:52 05:58 Sodium (137-145) mmol/L BUN (9-20) mg/dL Creatinine (0.66-1.25) mg/dL Glucose (74-99) mg/dL POC Glucose (mg/dL) 138 H 139 H 143 H (70-110) mg/dL 12/19/24 Range/Units 06:38 Sodium 135 L (137-145) mmol/L BUN 39 H (9-20) mg/dL Creatinine 1.31 H (0.66-1.25) mg/dL Glucose 120 H (74-99) mg/dL POC Glucose (mg/dL) (70-110) mg/dL Microbiology - Last 24 Hours (Table) 12/17/24 12:03 Urine Culture - Final Urine,Voided Assessment and Plan Assessment: Acute non-ST elevation HI, seen by cardiology and the patient was treated medically. No plans for cardiac catheterization Chronic obstructive pulmonary disease with secondary exacerbation, currently on a combination of bronchodilators and steroids Bilateral pleural effusion left more than right, stable Acute hypoxemic respiratory failure, currently on 2 L/min nasal cannula, chest x-ray remarkable for cardiomegaly, small to moderate-sized bilateral pleural effusions, and left lower lobe opacity concerning for compressive atelectasis or infectious process. proBNP only 738. Recurrent bladder tumor. Please refer to the results of the CT urogram. The patient also has bilateral hydronephrosis Hematuria secondary to above Acute blood loss anemia, hemoglobin is stable History of bladder cancer Hypertension Former tobacco dependence Plan: Continue supplemental oxygen to maintain oxygen saturation 92% or greater Continue combination of DuoNebs Continue IV Solu-Medrol Ultrasound of the chest and markedly sizable pleural fluid on the left Monitor replace electrolytes per protocol Transthoracic echocardiogram And the patient has a preserved LV function with an ejection fraction of 55 to 60% and the patient also has right ventricular enlargement and evidence of pulmonary hypertension Cardiology is consulted, will be treated medically for now Monitor hematuria Urology consult is appreciated Hemodynamics are stable We will continue to follow Time with Patient: Greater than 30
--- NOTE | 2024-12-19 16:35 | P.CON ---
Consult Note - . Consult date: 12/19/24 Assessment/Plan:: The patient is a 79-year-old white male admitted with dyspnea and chest pain. He is being treated for COPD exacerbation. He underwent transurethral resection of a large bladder tumor in August [address] Sal. 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 He completed a 6-week course of intravesical gemcitabine in January 2023. Urine cytology in February 2023 was positive, and the patient was advised to receive a 6-week course of intravesical BCG. However, he did not receive treatment due to cost and has not been seen back since that time. He has been noted to have [employer] colored urine recently. CT-AP shows retroperitoneal fat stranding and nodularity representing edema versus possible metastatic disease from bladder cancer. Review of Systems ROS Statement: Those systems with pertinent positive or pertinent negative responses have been documented in the HPI. ROS Other: All systems not noted in ROS Statement are negative. Past Medical History Past Medical History: Hypertension Additional Past Medical History / Comment(s): Glaucoma History of Any Multi-Drug Resistant Organisms: None Reported Additional Past Surgical History / Comment(s): Cataract surgery Past Psychological History: No Psychological Hx Reported Smoking Status: Current every day smoker Past Alcohol Use History: Occasional Past Drug Use History: None Reported General Exam General appearance: alert, in no apparent distress Head exam: Present: atraumatic, normocephalic, normal inspection Eye exam: Present: normal appearance, PERRL, EOMI. Absent: scleral icterus, conjunctival injection, periorbital swelling ENT exam: Present: normal exam, mucous membranes moist Neck exam: Present: normal inspection. Absent: tenderness, meningismus, lymphadenopathy Respiratory exam: Present: normal lung sounds bilaterally. Absent: respiratory distress, wheezes, rales, rhonchi, stridor Cardiovascular Exam: Present: regular rate, normal rhythm, normal heart sounds. Absent: systolic murmur, diastolic murmur, rubs, gallop, clicks GI/Abdominal exam: Present: soft, normal bowel sounds. Absent: distended, tenderness, guarding, rebound, rigid Extremities exam: Present: normal inspection, full ROM, normal capillary refill. Absent: tenderness, pedal edema, joint swelling, calf tenderness Back exam: Present: normal inspection Neurological exam: Present: alert, oriented X3, CN II-XII intact Psychiatric exam: Present: normal affect, normal mood Skin exam: Present: warm, dry, intact, normal color. Absent: rash 79 year old male with recurrent bladder cancer. CT-AP shows inflammation in retroperitoneum concerning for possible metatastic disease -No acute surgical intervention -If concern for metatastic disease, can obtain IR biopsy but would defer to urology -Ok for regular Diet Nirmal Mari DO [facility] [phone]
[2024-12-19 16:58] LABS: Glucose,Whole Blood 159 mg/dL (70-110)
[2024-12-19 20:15] LABS: Glucose,Whole Blood 146 mg/dL (70-110)
[2024-12-20 06:08] LABS: Glucose,Whole Blood 124 mg/dL (70-110)
--- NOTE | 2024-12-20 08:22 | P.PN ---
Progress Note - Text Progress Note Date: 12/20/24 No acute events overnight. Patient is resting comfortable VSS General-NAD CVS-RRR Lungs-NLB Abdomen-soft, NTND Ext-no edema 79 year old male with recurrent bladder cancer. CT-AP shows inflammation in retroperitoneum concerning for possible metatastic disease -No acute surgical intervention -If concern for metatastic disease, can obtain IR biopsy but would defer to urology -Ok for regular Diet Nirmal Mari DO [facility] [phone]
[2024-12-20 08:42] LABS: HGB 10.8 g/dL (13.0-17.0); MCH 26.7 pg (27.0-32.0); MCHC 31.8 g/dL (32.0-37.0); MCV 84.2 fL (80.0-97.0); Platelet Count 396 10*3/uL (140-440); RBC 4.04 10*6/uL (4.40-5.60); RDW 14.6 % (11.5-14.5); WBC 14.82 10*3/uL (4.50-10.00)
[2024-12-20 09:08] LABS: African American GFR (CKD) 61 (>60 ml/min/1.73 sqM); Anion Gap 7 mmol/L; Blood Urea Nitrogen 53 mg/dL (9-20); Calcium 9.5 mg/dL (8.4-10.2); Carbon Dioxide 29 mmol/L (22-30); Chloride 102 mmol/L (98-107); Glucose 110 mg/dL (74-99); Non-African American GFR(CKD) 52 (>60 ml/min/1.73 sqM); Potassium 3.9 mmol/L (3.5-5.1); Sodium 138 mmol/L (137-145)
[2024-12-20 11:48] LABS: Glucose,Whole Blood 123 mg/dL (70-110)
--- NOTE | 2024-12-20 12:10 | XR ---
EXAMINATION TYPE: XR chest 1V portable DATE OF EXAM: 12/20/2024 COMPARISON: 12/18/2024 CLINICAL INDICATION: Male, 79 years old with history of short of breath; TECHNIQUE: Single frontal view of the chest is obtained. FINDINGS: The left pleural effusion has resolved. There is a tiny residual right pleural effusion. There is mil d to moderate cardiomegaly. Pulmonary vasculature is not congested. There is no airspace consolidatio n. There is no pneumothorax. IMPRESSION: Decreased acute cardiopulmonary disease. The findings suggest prior CHF which has nearly resolved. [facility], Workstation: [place], 12/20/2024 12:08 PM
--- NOTE | 2024-12-20 14:52 | P.PN ---
Subjective Progress Note Date: 12/20/24 This is a 79-year-old gentleman with past medical history significant for hypertension, glaucoma, bladder cancer, prior nicotine dependence reports he quit 5 to 8 years ago, obesity and multiple medical issues presented to the ER with complaints of progressive shortness of breath accompanied by productive cough -white phlegm , diaphoresis and nonradiating midsternal chest pain x 3 days, intervals lasting 20 to 30-minutes. Reports hematuria x 1 day; disclosed that he has a history of recurrent blood in his urine since 2021-usually lasting 1 to 2 days then spontaneously resolves until the next occurrence. Urinal with Coca-Cola colored urine at bedside. Denies flank pain, dysuria or frequency. states he had followed with urology, Dr. Sal in 2021, received "instillations"" for 5 to 6 weeks, surgery had been recommended. Patient did not return for any further follow-up treatment/visits. On admission, troponins elevated, 0.247, 0.430, 0.505, EKG reported sinus tachycardia, bigeminal PVCs.IV heparin drip initiated-currently discontinued related to hematuria. Maintained on nebulized bronchodilators, antibiotics, IV push Lasix, maintaining O2 sats in the 90s on 3 L nasal cannula. Chest x-ray reports small bilateral pleural effusions with left basilar patchy airspace opacities which may represent atelectasis versus infiltrate. Procalcitonin within normal limits, less than 0.2. reports fluctuating midsternal chest pressure with coughing and shortness of breath. Afebrile, normal WBC. Hemoglobin 9.5, platelets 298, sodium 135, potassium 3.6, bicarb 24, BUN 20, creatinine 1.13, magnesium 1.8. Glucose ranging from 130s to [id number]. BNP 738. UA reporting 1+ protein, large blood, ne gative nitrates, moderate leukocytes, greater than 182 RBCs, 181 WBCs. 12/18/2024 staff and patient reports that he struggled all night with shortness of breath, wheeziness, requiring additional prn nebulized treatments. Patient currently complaining of shortness of breath, difficulty breathing, mildly tachycardic-up to the low 1 teens, respiratory rate 22, requiring 3 L nasal cannula to maintain O2 sats In the mid to low 90s, audible expiratory wheezing, fine basilar crackles. Hypertensive, echocardiogram reported normal LV size and systolic function, right ventricle is enlarged to moderate extent, mild mitral and tricuspid regurgitation, prominent aortic root-aortic root diameter 4.1 cm, difficult study, echo contrast used. Denies chest pain, palpitations. Evaluated by urology, urogram CT ordered. Hemoglobin stable, 9.4, platelets 338. Bicarb 23, BUN 28, creatinine 1.07. Maintained on nebulized bronchodilators, steroids with blood sugars controlled. hemoglobin A1c's. 12/19/2024 maintained on nebulized bronchodilators, steroids, antibiotics and diuretics. Reports significant improvement in his breathing. Chest x-ray reporting small bilateral pleural effusions with associated atelectasis. Renal function worsened, bicarb 28, BUN 39, creatinine 1.31. Urine minimally blood tinged. Urogram CT completed yesterday, reporting circumferential bladder wall thickening with greater degree of eccentric thickening along the right bladder dome, appears to be a mural based mass measuring 3.6 cm left posterior bladder wall. 9 mm soft tissue deposit anterior left pelvis adjacent to the bladder. Additionally soft tissue stranding and infiltration throughout the pelvis right iliac chain and retroperitoneum. Some of these areas have a more nodular configuration such as the aorta bifurcation measuring 1.7 cm. Unclear if this represents extensive edema. Metastatic disease not excluded at this time. Moderate symmetric hydronephrosis possibly due to the ureters coursing through these infiltrative changes. No excretion of contrast into the ureters even on the delayed motor scan. Prostatomegaly at 5.9 cm wide. Generalized anasarca with moderate left and small to moderate right pleural effusions. Mild abdominal ascites. Correlate for fluid overload state. Possible underlying cirrhosis. 12/20. Patient seen and examined. Patient underwent left-sided thoracentesis with removal of 1000 mL of fluid. Stated breathing is improved. REVIEW OF SYSTEMS: CONSTITUTIONAL: No fever, no malaise,. CARDIOVASCULAR: No chest pain, no palpitations, no syncope. PULMONARY: No shortness of breath, no cough, GASTROINTESTINAL: No diarrhea, no nausea, no vomiting, no abdominal pain. NEUROLOGICAL: No headaches, no weakness, PHYSICAL EXAMINATION: GENERAL: The patient is alert and oriented x3, not in any acute distress. Well developed, well nourished. HEENT: Pupils are round and equally reacting to light. EOMI. No scleral icterus. No conjunctival pallor. Normocephalic, atraumatic. No pharyngeal erythema. No thyromegaly. CARDIOVASCULAR: S1 and S2 present. No murmurs, rubs, or gallops. PULMONARY: Diminished breath sounds at the bases bilaterally, no crackles ABDOMEN: Soft, nontender, nondistended, normoactive bowel sounds. No palpable organomegaly. MUSCULOSKELETAL: No joint swelling or deformity. EXTREMITIES: No cyanosis, clubbing, or pedal edema. NEUROLOGICAL: Gross neurological examination did not reveal any focal deficits. SKIN: No rashes. Assessment and plan NSTEMI, cardiology following recommending medical management Acute COPD exacerbation.chest x-ray remarkable for cardiomegaly, small to moderate bilateral pleural effusions, and left lower lobe opacity concerning for compressive atelectasis or infectious process. ProBNP only 738. Procalcitonin WNL,<0.20. Acute hypoxic respiratory failure, multifactorial, secondary to all the above. Intra-abdominal ,retroperitoneal edema reported per CT Hematuria, recurrent bladder cancer with possible metastasis reported per urogram CT Bilateral moderate hydronephrosis reported per CT Acute blood loss anemia secondary to the above History of bladder cancer Hypertension Glaucoma Former nicotine dependence Morbid obesity, BMI 32 Hypokalemia Hemoglobin A1c 6.0 Constipation Monitor vital sign Monitor CBC Monitor CMP Continue aspirin, Lipitor Continue IV Rocephin Continue heparin pharmacy dose Continue breathing treatments continue IV Solu-Medrol Monitor blood sugar levels, continue sliding scale insulin Cardiology evaluated, not planning cardiac catheterization pulmonology following, status post thoracentesis on 12/20 urology following Labs and medication were reviewed.. Continue same treatment. Continue with symptomatic treatment. Resume home medication. Monitor labs and vitals. DVT and GI prophylaxis. Further recommendations as per clinical course of the patient Dictation was produced using [employer] dictation software. please excuse any grammatical, word or spelling errors. Objective - Vital Signs Vital signs: Vital Signs Temp 97.6 F 12/20/24 09:11 Pulse 64 12/20/24 12:18 Resp 18 12/20/24 11:50 BP 129/64 12/20/24 11:50 Pulse Ox 97 12/20/24 11:50 FiO2 Intake & Output 12/19/24 12/20/24 12/20/24 18:59 06:59 18:59 Intake Total 790 10 10 Output Total 650 450 100 Balance 140 -440 -90 Weight 112 kg Intake: IV 10 10 0.9 10 Invasive Line 3 10 Intake, IV Titration 50 Amount cefTRIAXone 2 gm In 50 Sodium Chloride 0.9% 50 ml @ 100 mls/hr IVPB Q24HR [facility] Rx#:[id number] Oral 740 Output: Urine 650 450 100 Other: Voiding Method Urinal Urinal Urinal - Labs CBC & Chem 7: 12/20/24 07:15 12/20/24 07:15 Labs: Abnormal Lab Results - Last 24 Hours (Table) 12/19/24 12/19/24 12/20/24 Range/Units 16:54 20:13 06:07 WBC (4.50-10.00) 10*3/uL RBC (4.40-5.60) 10*6/uL Hgb (13.0-17.0) g/dL Hct (39.6-50.0) % MCH (27.0-32.0) pg MCHC (32.0-37.0) g/dL BUN (9-20) mg/dL Creatinine (0.66-1.25) mg/dL Glucose (74-99) mg/dL POC Glucose (mg/dL) 159 H 146 H 124 H (70-110) mg/dL 12/20/24 12/20/24 12/20/24 Range/Units 07:15 07:15 11:47 WBC 14.82 H (4.50-10.00) 10*3/uL RBC 4.04 L (4.40-5.60) 10*6/uL Hgb 10.8 L (13.0-17.0) g/dL Hct 34.0 L (39.6-50.0) % MCH 26.7 L (27.0-32.0) pg MCHC 31.8 L (32.0-37.0) g/dL BUN 53 H (9-20) mg/dL Creatinine 1.30 H (0.66-1.25) mg/dL Glucose 110 H (74-99) mg/dL POC Glucose (mg/dL) 123 H (70-110) mg/dL
[2024-12-20 16:36] LABS: Glucose,Whole Blood 147 mg/dL (70-110)
--- NOTE | 2024-12-20 19:16 | P.PN ---
Subjective Progress Note Date: 12/20/24 Patient is a 79-year-old male with past medical history significant for former tobacco dependence, COPD, and bladder cancer. His PCP is Dr. Rafal Olivarez. Presented to emergency department with a chief complaint of severe shortness of breath, chest congestion, and increased cough with clear sputum. Also, was having tanya hematuria over the last 24 hours. Workup in the emergency department including a chest x-ray showing small bilateral pleural effusions and left basilar patchy airspace opacity which could represent compressive atelectasis or infectious process. CBC: WBC count 10.2, hemoglobin 9.7, platelets 309. CMP: Sodium 133, potassium 3.2, chloride 103, serum bicarb 23, BUN 20, creatinine 1, glucose 138. LFTs not elevated. Urinalysis positive for proteinuria, blood, leukocytes. Troponins elevated 0.247 and 0.43 respectively. NT proBNP 738. EKG: Sinus rhythm with bigeminal PVCs, rate 100 bpm, patient was previously started on IV heparin. Patient currently being evaluated in the em ergency department. He is resting comfortably on 2 L/min nasal cannula. Does not appear in respiratory distress. Denies any chest pain, heart palpitations, syncopal events, orthopnea, lower extremity edema. Does report history of COPD. He is a former tobacco smoker quit approximately 5 years ago. Previously smoked 1/2 pack/day for over 50 years. Endorses increased work of breathing over the l ast 2 to 3 days. Associated cough with clear sputum production. Denies any purulent sputum. Denies any hemoptysis. Denies any fevers or chills. Previously loaded with IV Solu-Medrol and given multiple breathing treatments in the ED. Was started on IV Lasix 40 mg twice daily. He is producing blood tinged urine. No clots. Patient states that he has history of bladder cancer, that was diagnosed back in 2021. He was previously receiving bladder installations, and stopped following up. Denies any dysuria. Denies any flank pain. Denies history of kidney stones. Denies any nausea, vomiting, diarrhea, melena, hematochezia. Vital signs are stable. 12/18/2024, the patient is being seen for a follow-up. The patient is doing well. No specific complaints. The patient is currently off of IV heparin. Still having some limited hematuria and the patient was seen by urology and the urine output is showing faint blood tinged output. The CT urogram was ordered and the CAT scan showed bilateral moderate hydronephrosis in addition to intra- abdominal and retroperitoneal edema and bilateral bladder masses. There was circumferential bladder wall thickening with greater degree of the eccentric thickening along the right bladder dome. Another 3.6 cm mural based mass was seen in the left posterior bladder wall. There was also prostatic enlargement and generalized anasarca with moderate left and small to moderate right-sided pleural effusion and mild abdominal ascites consistent with fluid overload. The findings are consistent with recurrent bladder cancer. The patient will require cystoscopy and bladder tumor resection. Meanwhile, his hemoglobin is stable at 9.4. The white cell count is 16.5. Electrolytes are all stable, BUN is 28 with a creatinine of 1.07. Urine cultures are still negative and the patient remains on IV Rocephin. He is also on Lasix 40 mg IV every 12 hours and the patient is in a negative fluid balance. He is currently on 3 L of oxygen by nasal cannula with a pulse ox of 97%. He remains on DuoNeb updrafts. He remains on IV Solu- Medrol for COPD exacerbation. On 12/19/2024, the patient has been weaned down to 2 L of oxygen by nasal cannula. The patient is feeling well. No specific complaints. There is post acute non-ST segment elevation myocardial infarction. He is free of any chest pain. Urology also evaluate this patient for recurrent bladder tumor. No active hematuria at this point. He does have bilateral pleural effusion. His creatinine is 1.3 and the BUN is send 39. Response to diuretics have been somewhat suboptimal and the patient is currently off diuretics. However, he does have bilateral pleural effusions. For that reason, ultrasound of the chest was done in consideration for thoracentesis. Noted he does have possibly a moderate-sized left-sided pleural effusion and he may benefit from thoracentesis. 12/20/2024, the patient remains on oxygen and is currently on 2 L of O2 nasal cannula. Still having some limited shortness of breath. No reported chest pain. No active hematuria. Remains on bronchodilators. Remains on steroids. He does have bilateral pleural effusion right more than left. Ultrasound of chest was done and the patient was found to have a moderate-sized right-sided pleural effusion. Based on that, a bedside thoracentesis was done today and a total of 1 L of pleural fluid was aspirated from the left lung without any complications. Follow-up chest x-ray following the procedure shows improvement in the left-sided pleural effusion has essentially recovered and the patient's CHF findings on the chest x-ray is also improving. No pneumothorax. Continues to have a small right-sided pleural effusion. Remains on IV Rocephin. Remains on IV Solu-Medrol. Remains on DuoNeb nebulizers [id number]. Diuretics are currently on hold. Renal function is being monitored. Most recent creatinine is at 1.3 with a BUN of 53. Sodium is at 138. The white cell count is 14.8 with a hemoglobin of 10.8 and a platelet count of 396. Objective - Vital Signs Vital signs: Vital Signs Temp 97.6 F 12/20/24 09:11 Pulse 72 12/20/24 09:17 Resp 18 12/20/24 09:15 BP 144/86 12/20/24 09:11 Pulse Ox 92 L 12/20/24 09:11 FiO2 Intake & Output 12/19/24 12/20/24 12/20/24 18:59 06:59 18:59 Intake Total 790 10 10 Output Total 650 450 Balance 140 -440 10 Weight 112 kg Intake: IV 10 10 0.9 10 Invasive Line 3 10 Intake, IV Titration 50 Amount cefTRIAXone 2 gm In 50 Sodium Chloride 0.9% 50 ml @ 100 mls/hr IVPB Q24HR [facility] Rx#:[id number] Oral 740 Output: Urine 650 450 Other: Voiding Method Urinal Urinal Urinal - Exam GENERAL EXAM: Alert, 79-year-old obese male, on 2 L/min nasal cannula, comfortable in no apparent distress. HEAD: Normocephalic and atraumatic EYES: Normal reaction of pupils, equal size. NOSE: Clear with pink turbinates. THROAT: No erythema or exudates. NECK: No masses, no JVD. CHEST: No chest wall deformity. LUNGS: Equal air entry with no crackles, wheeze, rhonchi or dullness. No conversational dyspnea or accessory muscle use.. CVS: S1 and S2 normal with no audible murmur, regular rhythm. No extra heart sounds ABDOMEN: No hepatosplenomegaly, active bowel sounds, no guarding or rigidity. SPINE: No scoliosis or deformity SKIN: No rashes CENTRAL NERVOUS SYSTEM: No focal deficits, tone is normal in all 4 extremities. EXTREMITIES: There is no peripheral edema, clubbing, or cyanosis. Peripheral pulses are intact. - Labs CBC & Chem 7: 12/20/24 07:15 12/20/24 07:15 Labs: Abnormal Lab Results - Last 24 Hours (Table) 12/19/24 12/19/24 12/19/24 Range/Units 11:39 16:54 20:13 WBC (4.50-10.00) 10*3/uL RBC (4.40-5.60) 10*6/uL Hgb (13.0-17.0) g/dL Hct (39.6-50.0) % MCH (27.0-32.0) pg MCHC (32.0-37.0) g/dL BUN (9-20) mg/dL Creatinine (0.66-1.25) mg/dL Glucose (74-99) mg/dL POC Glucose (mg/dL) 144 H 159 H 146 H (70-110) mg/dL 12/20/24 12/20/24 12/20/24 Range/Units 06:07 07:15 07:15 WBC 14.82 H (4.50-10.00) 10*3/uL RBC 4.04 L (4.40-5.60) 10*6/uL Hgb 10.8 L (13.0-17.0) g/dL Hct 34.0 L (39.6-50.0) % MCH 26.7 L (27.0-32.0) pg MCHC 31.8 L (32.0-37.0) g/dL BUN 53 H (9-20) mg/dL Creatinine 1.30 H (0.66-1.25) mg/dL Glucose 110 H (74-99) mg/dL POC Glucose (mg/dL) 124 H (70-110) mg/dL Assessment and Plan Assessment: Acute non-ST elevation UT, seen by cardiology and the patient was treated medically. No plans for cardiac catheterization, and the patient remains free of any chest pain Chronic obstructive pulmonary disease with secondary exacerbation, currently on a combination of bronchodilators and steroids Bilateral pleural effusion left more than right, status post thoracentesis of the left lung on 12/20/2024 and removal of 1 L of pleural fluid. Acute hypoxemic respiratory failure, currently on 2 L/min nasal cannula, chest x-ray remarkable for cardiomegaly, small to moderate-sized bilateral pleural effusions, and left lower lobe opacity concerning for compressive atelectasis or infectious process. proBNP only 738. Recurrent bladder tumor. Please refer to the results of the CT urogram. The patient also has bilateral hydronephrosis Hematuria secondary to above Acute blood loss anemia, hemoglobin is stable History of bladder cancer Hypertension Former tobacco dependence Acute kidney injury with a creatinine being stable at 1.3. The patient has mild hydronephrosis and the patient was receiving diuretics and the patient is curre ntly off Lasix. Plan: Continue supplemental oxygen to maintain oxygen saturation 92% or greater, currently on 2 L of oxygen by nasal cannula Continue combination of DuoNebs Continue IV Solu-Medrol Left-sided thoracentesis was done without any complications, 1 L Monitor renal function Transthoracic echocardiogram And the patient has a preserved LV function with an ejection fraction of 55 to 60% and the patient also has right ventricular enlargement and evidence of pulmonary hypertension Cardiology is consulted, will be treated medically for now Monitor hematuria Urology consult is appreciated Hemodynamics are stable We will continue to follow Time with Patient: Greater than 30
--- NOTE | 2024-12-20 19:17 | P.PCN ---
Date of Procedure: 12/20/24 Preoperative Diagnosis: Left-sided pleural effusion Postoperative Diagnosis: Left-sided pleural effusion Procedure(s) Performed: Left-sided thoracentesis Anesthesia: local Surgeon: Luis Armando Grande Estimated Blood Loss (ml): 0 Pathology: other Condition: stable Disposition: floor Operative Findings: The procedure was done with ultrasound guidance. Ultrasound marking of the left chest was done at the bedside. A time out was performed and the chest x-ray was reviewed, the appropriate side was confirmed and marked. My hands were washed immediately prior to the procedure. I wore a surgical cap, mask with protective eyewear, sterile gown and sterile gloves throughout the procedure. The patient was prepped and draped in a sterile manner using chlorhexidine scrub after the appropriate level was percussed and confirmed by ultrasound. 1% lidocaine was used to anesthesize the skin, subcutaneous tissue, superior aspect of the rib periosteum and parietal pleura. A finder needle was then introduced over the superior aspect of the rib to locate the pleural fluid; 2colored fluid was aspirated at a depth of approximately 2 cm. A 10-blade scalpel was used to evie the skin at the insertion site. The [id number] needle was then introduced through the skin incision into the pleural space using negative aspiration pressure and the red colometric indicator to confirm appropriate positioning of the needle. The thoracentesis catheter was then threaded without difficulty. 1000 ml of turbid colored fluid was removed without difficulty. The catheter was then removed. No immediate complications were noted during the procedure. A post-procedure chest x-ray is pending at the time of this note. The fluid will be sent for studies. Estimated blood loss is 0cc
[2024-12-20 20:05] LABS: Glucose,Whole Blood 166 mg/dL (70-110)
[2024-12-20] MEDS: MELATONIN 5 MG TABLET PO PRN (21:41)
[2024-12-21 02:43] LABS: Glucose, BF Source Pleural fluid; Glucose, Body Fluid 134 mg/dL; LDH, Body Fluid Source Pleural fluid; T. Protein, Body Fluid Source Pleural fluid; Total Protein, Body Fluid 3420 mg/dL
[2024-12-21 06:13] LABS: Glucose,Whole Blood 112 mg/dL (70-110)
[2024-12-21 08:42] LABS: Appearance,BF Hazy (Clear)
[2024-12-21 11:22] LABS: Glucose,Whole Blood 188 mg/dL (70-110)
--- NOTE | 2024-12-21 11:30 | P.PN ---
Progress Note - Text Progress Note Date: 12/21/24 No acute events overnight. Patient is resting comfortable VSS General-NAD CVS-RRR Lungs-NLB Abdomen-soft, NTND Ext-no edema 79 year old male with recurrent bladder cancer. CT-AP shows inflammation in retroperitoneum concerning for possible metatastic disease -No acute surgical intervention -If concern for metatastic disease, can obtain IR biopsy but would defer to urology -Ok for regular Diet Nirmal Mari DO [facility] [phone]
--- NOTE | 2024-12-21 12:52 | P.PN ---
Subjective Progress Note Date: 12/21/24 This is a 79-year-old gentleman with past medical history significant for hypertension, glaucoma, bladder cancer, prior nicotine dependence reports he quit 5 to 8 years ago, obesity and multiple medical issues presented to the ER with complaints of progressive shortness of breath accompanied by productive cough -white phlegm , diaphoresis and nonradiating midsternal chest pain x 3 days, intervals lasting 20 to 30-minutes. Reports hematuria x 1 day; disclosed that he has a history of recurrent blood in his urine since 2021-usually lasting 1 to 2 days then spontaneously resolves until the next occurrence. Urinal with [employer] colored urine at bedside. Denies flank pain, dysuria or frequency. states he had followed with urology, Dr. Sal in 2021, received "instillations"" for 5 to 6 weeks, surgery had been recommended. Patient did not return for any further follow-up treatment/visits. On admission, troponins elevated, 0.247, 0.430, 0.505, EKG reported sinus tachycardia, bigeminal PVCs.IV heparin drip initiated-currently discontinued related to hematuria. Maintained on nebulized bronchodilators, antibiotics, IV push Lasix, maintaining O2 sats in the 90s on 3 L nasal cannula. Chest x-ray reports small bilateral pleural effusions with left basilar patchy airspace opacities which may represent atelectasis versus infiltrate. Procalcitonin within normal limits, less than 0.2. reports fluctuating midsternal chest pressure with coughing and shortness of breath. Afebrile, normal WBC. Hemoglobin 9.5, platelets 298, sodium 135, potassium 3.6, bicarb 24, BUN 20, creatinine 1.13, magnesium 1.8. Glucose ranging from 130s to sec722y. BNP 738. UA reporting 1+ protein, large blood, ne gative nitrates, moderate leukocytes, greater than 182 RBCs, 181 WBCs. 12/18/2024 staff and patient reports that he struggled all night with shortness of breath, wheeziness, requiring additional prn nebulized treatments. Patient currently complaining of shortness of breath, difficulty breathing, mildly tachycardic-up to the low 1 teens, respiratory rate 22, requiring 3 L nasal cannula to maintain O2 sats In the mid to low 90s, audible expiratory wheezing, fine basilar crackles. Hypertensive, echocardiogram reported normal LV size and systolic function, right ventricle is enlarged to moderate extent, mild mitral and tricuspid regurgitation, prominent aortic root-aortic root diameter 4.1 cm, difficult study, echo contrast used. Denies chest pain, palpitations. Evaluated by urology, urogram CT ordered. Hemoglobin stable, 9.4, platelets 338. Bicarb 23, BUN 28, creatinine 1.07. Maintained on nebulized bronchodilators, steroids with blood sugars controlled. hemoglobin A1c's. 12/19/2024 maintained on nebulized bronchodilators, steroids, antibiotics and diuretics. Reports significant improvement in his breathing. Chest x-ray reporting small bilateral pleural effusions with associated atelectasis. Renal function worsened, bicarb 28, BUN 39, creatinine 1.31. Urine minimally blood tinged. Urogram CT completed yesterday, reporting circumferential bladder wall thickening with greater degree of eccentric thickening along the right bladder dome, appears to be a mural based mass measuring 3.6 cm left posterior bladder wall. 9 mm soft tissue deposit anterior left pelvis adjacent to the bladder. Additionally soft tissue stranding and infiltration throughout the pelvis right iliac chain and retroperitoneum. Some of these areas have a more nodular configuration such as the aorta bifurcation measuring 1.7 cm. Unclear if this represents extensive edema. Metastatic disease not excluded at this time. Moderate symmetric hydronephrosis possibly due to the ureters coursing through these infiltrative changes. No excretion of contrast into the ureters even on the delayed motor scan. Prostatomegaly at 5.9 cm wide. Generalized anasarca with moderate left and small to moderate right pleural effusions. Mild abdominal ascites. Correlate for fluid overload state. Possible underlying cirrhosis. 12/20. Patient seen and examined. Patient underwent left-sided thoracentesis with removal of 1000 mL of fluid. Stated breathing is improved. 12/21. Patient seen and examined. States he feels much better. Complaining of productive cough. Breathing is improved. Currently on room air, temperature 97.5, heart rate 64, respirations 16. REVIEW OF SYSTEMS: CONSTITUTIONAL: No fever, no malaise,. CARDIOVASCULAR: No chest pain, no palpitations, no syncope. PULMONARY: As mentioned above GASTROINTESTINAL: No diarrhea, no nausea, no vomiting, no abdominal pain. NEUROLOGICAL: No headaches, no weakness, PHYSICAL EXAMINATION: GENERAL: The patient is alert and oriented x3, ill looking HEENT: Pupils are round and equally reacting to light. EOMI. No scleral icterus. No conjunctival pallor. Normocephalic, atraumatic. No pharyngeal erythema. No thyromegaly. CARDIOVASCULAR: S1 and S2 present. No murmurs, rubs, or gallops. PULMONARY: Diminished breath sounds at the bases bilaterally, no crackles ABDOMEN: Soft, nontender, nondistended, normoactive bowel sounds. No palpable organomegaly. MUSCULOSKELETAL: No joint swelling or deformity. EXTREMITIES: No cyanosis, clubbing, or pedal edema. NEUROLOGICAL: Gross neurological examination did not reveal any focal deficits. SKIN: No rashes. Assessment and plan NSTEMI, cardiology following recommending medical management Acute COPD exacerbation.chest x-ray remarkable for cardiomegaly, small to moderate bilateral pleural effusions, and left lower lobe opacity concerning for compressive atelectasis or infectious process. ProBNP only 738. Procalcitonin WNL,<0.20. Acute hypoxic respiratory failure, multifactorial, secondary to all the above. Intra-abdominal ,retroperitoneal edema reported per CT Hematuria, recurrent bladder cancer with possible metastasis reported per urogram CT Bilateral moderate hydronephrosis reported per CT Acute blood loss anemia secondary to the above History of bladder cancer Hypertension Glaucoma Former nicotine dependence Morbid obesity, BMI 32 Hypokalemia Hemoglobin A1c 6.0 Constipation Monitor vital sign Monitor CBC Monitor CMP Continue aspirin, Lipitor Continue IV Rocephin Continue breathing treatments continue IV Solu-Medrol Monitor blood sugar levels, continue sliding scale insulin Cardiology evaluated, not planning cardiac catheterization pulmonology following, status post thoracentesis on 12/20 urology following Surgery evaluated, the recommendations reviewed from 12/21, if there is concern for metastatic disease, they recommend IR guided biopsy Labs and medication were reviewed.. Continue same treatment. Continue with symptomatic treatment. Resume home medication. Monitor labs and vitals. DVT and GI prophylaxis. Further recommendations as per clinical course of the patient Dictation was produced using [employer] dictation software. please excuse any grammatical, word or spelling errors. Objective - Vital Signs Vital signs: Vital Signs Temp 97.5 F L 12/21/24 08:28 Pulse 64 12/21/24 12:15 Resp 16 12/21/24 12:15 BP 143/70 12/21/24 12:15 Pulse Ox 92 L 12/21/24 12:15 FiO2 Intake & Output 12/20/24 12/21/24 12/21/24 18:59 06:59 18:59 Intake Total 20 1100 250 Output Total 250 400 250 Balance -230 700 0 Weight 103.102 kg Intake: IV 20 20 10 Invasive Line 3 20 20 10 Oral 1080 240 Output: Urine 250 400 250 Other: Voiding Method Urinal Urinal Urinal # Voids 1 # Bowel Movements 1 - Labs CBC & Chem 7: 12/20/24 07:15 12/20/24 07:15 Labs: Abnormal Lab Results - Last 24 Hours (Table) 12/20/24 12/20/24 12/20/24 Range/Units 11:35 16:33 20:04 POC Glucose (mg/dL) 147 H 166 H (70-110) mg/dL Fluid Appearance Hazy A (Clear) 12/21/24 12/21/24 Range/Units 06:12 11:22 POC Glucose (mg/dL) 112 H 188 H (70-110) mg/dL Fluid Appearance (Clear) Microbiology - Last 24 Hours (Table) 12/20/24 11:35 Gram Stain - Preliminary Pleural Fluid
--- NOTE | 2024-12-21 14:11 | P.PN ---
Subjective Progress Note Date: 12/21/24 Patient is a 79-year-old male with past medical history significant for former tobacco dependence, COPD, and bladder cancer. His PCP is Dr. Rafal Olivarez. Presented to emergency department with a chief complaint of severe shortness of breath, chest congestion, and increased cough with clear sputum. Also, was having tanya hematuria over the last 24 hours. Workup in the emergency department including a chest x-ray showing small bilateral pleural effusions and left basilar patchy airspace opacity which could represent compressive atelectasis or infectious process. CBC: WBC count 10.2, hemoglobin 9.7, platelets 309. CMP: Sodium 133, potassium 3.2, chloride 103, serum bicarb 23, BUN 20, creatinine 1, glucose 138. LFTs not elevated. Urinalysis positive for proteinuria, blood, leukocytes. Troponins elevated 0.247 and 0.43 respectively. NT proBNP 738. EKG: Sinus rhythm with bigeminal PVCs, rate 100 bpm, patient was previously started on IV heparin. Patient currently being evaluated in the em ergency department. He is resting comfortably on 2 L/min nasal cannula. Does not appear in respiratory distress. Denies any chest pain, heart palpitations, syncopal events, orthopnea, lower extremity edema. Does report history of COPD. He is a former tobacco smoker quit approximately 5 years ago. Previously smoked 1/2 pack/day for over 50 years. Endorses increased work of breathing over the l ast 2 to 3 days. Associated cough with clear sputum production. Denies any purulent sputum. Denies any hemoptysis. Denies any fevers or chills. Previously loaded with IV Solu-Medrol and given multiple breathing treatments in the ED. Was started on IV Lasix 40 mg twice daily. He is producing blood tinged urine. No clots. Patient states that he has history of bladder cancer, that was diagnosed back in 2021. He was previously receiving bladder installations, and stopped following up. Denies any dysuria. Denies any flank pain. Denies history of kidney stones. Denies any nausea, vomiting, diarrhea, melena, hematochezia. Vital signs are stable. 12/18/2024, the patient is being seen for a follow-up. The patient is doing well. No specific complaints. The patient is currently off of IV heparin. Still having some limited hematuria and the patient was seen by urology and the urine output is showing faint blood tinged output. The CT urogram was ordered and the CAT scan showed bilateral moderate hydronephrosis in addition to intra- abdominal and retroperitoneal edema and bilateral bladder masses. There was circumferential bladder wall thickening with greater degree of the eccentric thickening along the right bladder dome. Another 3.6 cm mural based mass was seen in the left posterior bladder wall. There was also prostatic enlargement and generalized anasarca with moderate left and small to moderate right-sided pleural effusion and mild abdominal ascites consistent with fluid overload. The findings are consistent with recurrent bladder cancer. The patient will require cystoscopy and bladder tumor resection. Meanwhile, his hemoglobin is stable at 9.4. The white cell count is 16.5. Electrolytes are all stable, BUN is 28 with a creatinine of 1.07. Urine cultures are still negative and the patient remains on IV Rocephin. He is also on Lasix 40 mg IV every 12 hours and the patient is in a negative fluid balance. He is currently on 3 L of oxygen by nasal cannula with a pulse ox of 97%. He remains on DuoNeb updrafts. He remains on IV Solu- Medrol for COPD exacerbation. On 12/19/2024, the patient has been weaned down to 2 L of oxygen by nasal cannula. The patient is feeling well. No specific complaints. There is post acute non-ST segment elevation myocardial infarction. He is free of any chest pain. Urology also evaluate this patient for recurrent bladder tumor. No active hematuria at this point. He does have bilateral pleural effusion. His creatinine is 1.3 and the BUN is send 39. Response to diuretics have been somewhat suboptimal and the patient is currently off diuretics. However, he does have bilateral pleural effusions. For that reason, ultrasound of the chest was done in consideration for thoracentesis. Noted he does have possibly a moderate-sized left-sided pleural effusion and he may benefit from thoracentesis. 12/20/2024, the patient remains on oxygen and is currently on 2 L of O2 nasal cannula. Still having some limited shortness of breath. No reported chest pain. No active hematuria. Remains on bronchodilators. Remains on steroids. He does have bilateral pleural effusion right more than left. Ultrasound of chest was done and the patient was found to have a moderate-sized right-sided pleural effusion. Based on that, a bedside thoracentesis was done today and a total of 1 L of pleural fluid was aspirated from the left lung without any complications. Follow-up chest x-ray following the procedure shows improvement in the left-sided pleural effusion has essentially recovered and the patient's CHF findings on the chest x-ray is also improving. No pneumothorax. Continues to have a small right-sided pleural effusion. Remains on IV Rocephin. Remains on IV Solu-Medrol. Remains on DuoNeb nebulizers [id number]. Diuretics are currently on hold. Renal function is being monitored. Most recent creatinine is at 1.3 with a BUN of 53. Sodium is at 138. The white cell count is 14.8 with a hemoglobin of 10.8 and a platelet count of 396. On 12/21/2024, the patient is postthoracentesis. He is currently on 2 L of oxygen by nasal cannula with a pulse ox of 98%. Pulse ox on room air is in or mert of 92%. He is afebrile. Free of any chest pain. The fluid analysis from the left-sided thoracentesis showed an elevated LDH and protein, likely an exudate. Awaiting the pleural fluid cytology. Consider malignant pleural effusion especially with his history of bladder cancer. No hematuria. The white cell count is 14.8. Hemoglobin stable at 10.8. BUN is 53 with a creatinine of 1.3 and a sodium level at 138. Remains on aspirin. Remains on IV Rocephin as an empiric antibiotic coverage. Remains on Lantus insulin 15 units daily. Remains on DuoNeb updrafts and IV Solu-Medrol. Objective - Vital Signs Vital signs: Vital Signs Temp 97.5 F L 12/21/24 08:28 Pulse 58 L 12/21/24 08:28 Resp 16 12/21/24 08:28 BP 121/73 12/21/24 08:28 Pulse Ox 98 12/21/24 08:28 FiO2 Intake & Output 12/20/24 12/21/24 12/21/24 18:59 06:59 18:59 Intake Total 20 1100 250 Output Total 250 400 100 Balance -230 700 150 Weight 103.102 kg Intake: IV 20 20 10 Invasive Line 3 20 20 10 Oral 1080 240 Output: Urine 250 400 100 Other: Voiding Method Urinal Urinal Urinal - Exam GENERAL EXAM: Alert, 79-year-old obese male, on 2 L/min nasal cannula, comfortable in no apparent distress. HEAD: Normocephalic and atraumatic EYES: Normal reaction of pupils, equal size. NOSE: Clear with pink turbinates. THROAT: No erythema or exudates. NECK: No masses, no JVD. CHEST: No chest wall deformity. LUNGS: Equal air entry with no crackles, wheeze, rhonchi or dullness. No conversational dyspnea or accessory muscle use.. CVS: S1 and S2 normal with no audible murmur, regular rhythm. No extra heart sounds ABDOMEN: No hepatosplenomegaly, active bowel sounds, no guarding or rigidity. SPINE: No scoliosis or deformity SKIN: No rashes CENTRAL NERVOUS SYSTEM: No focal deficits, tone is normal in all 4 extremities. EXTREMITIES: There is no peripheral edema, clubbing, or cyanosis. Peripheral pulses are intact. - Labs CBC & Chem 7: 12/20/24 07:15 12/20/24 07:15 Labs: Abnormal Lab Results - Last 24 Hours (Table) 12/20/24 12/20/24 12/20/24 Range/Units 11:35 11:47 16:33 POC Glucose (mg/dL) 123 H 147 H (70-110) mg/dL Fluid Appearance Hazy A (Clear) 12/20/24 12/21/24 Range/Units 20:04 06:12 POC Glucose (mg/dL) 166 H 112 H (70-110) mg/dL Fluid Appearance (Clear) Microbiology - Last 24 Hours (Table) 12/20/24 11:35 Gram Stain - Preliminary Pleural Fluid Assessment and Plan Assessment: Acute non-ST elevation OH, seen by cardiology and the patient was treated medically. No plans for cardiac catheterization, and the patient remains free of any chest pain Chronic obstructive pulmonary disease with secondary exacerbation, currently on a combination of bronchodilators and steroids Bilateral pleural effusion left more than right, status post thoracentesis of the left lung on 12/20/2024 and removal of 1 L of pleural fluid. The pleural fluid is an exudate. Awaiting pleural fluid cytology. Acute hypoxemic respiratory failure, currently on 2 L/min nasal cannula, chest x-ray remarkable for cardiomegaly, small to moderate-sized bilateral pleural effusions, and left lower lobe opacity concerning for compressive atelectasis or infectious process. proBNP only 738. Recurrent bladder tumor. Please refer to the results of the CT urogram. The patient also has bilateral hydronephrosis Hematuria secondary to above Acute blood loss anemia, hemoglobin is stable History of bladder cancer Hypertension Former tobacco dependence Acute kidney injury with a creatinine being stable at 1.3. The patient has mild hydronephrosis and the patient was receiving diuretics and the patient is currently off Lasix. Plan: Continue supplemental oxygen to maintain oxygen saturation 92% or greater, currently on 2 L of oxygen by nasal cannula, transition the patient to room air oxygen as long as the patient saturation remains above 90% Continue combination of DuoNebs Stopped IV Solu-Medrol and put the patient on prednisone burst taper Left-sided thoracentesis was done without any complications, 1 L, awaiting pleural fluid cytology. Fluid and exudate. Monitor renal function Transthoracic echocardiogram And the patient has a preserved LV function with an ejection fraction of 55 to 60% and the patient also has right ventricular en largement and evidence of pulmonary hypertension Cardiology is consulted, will be treated medically for now Monitor hematuria Urology consult is appreciated Hemodynamics are stable We will continue to follow Time with Patient: Greater than 30
[2024-12-21 16:06] LABS: Glucose,Whole Blood 172 mg/dL (70-110)
[2024-12-21 20:00] LABS: Glucose,Whole Blood 223 mg/dL (70-110)
[2024-12-21] MEDS: LORazepam 0.5 MG TAB PO SCH (20:45)
[2024-12-22 06:11] LABS: Glucose,Whole Blood 95 mg/dL (70-110)
[2024-12-22 06:57] LABS: Basophils # (A) 0.01 10*3/uL (0.00-0.10); Basophils % (A) 0.1 %; HCT 29.6 % (39.6-50.0); HGB 9.6 g/dL (13.0-17.0); Lymphocytes # (A) 1.74 10*3/uL (0.90-5.00); Lymphocytes % (A) 13.6 %; MCH 26.9 pg (27.0-32.0); MCHC 32.4 g/dL (32.0-37.0); MCV 82.9 fL (80.0-97.0); Mean Platelet Volume 11.1 fL (9.5-12.2); Monocytes # (A) 0.96 10*3/uL (0.20-1.00); Monocytes % (A) 7.5 %; Neutrophils # (A) 9.91 10*3/uL (1.80-7.70); Neutrophils % (A) 77.5 %; Platelet Count 275 10*3/uL (140-440); RBC 3.57 10*6/uL (4.40-5.60); RDW 14.6 % (11.5-14.5); WBC 12.78 10*3/uL (4.50-10.00)
[2024-12-22 07:12] LABS: ALT 33 U/L (4-49); AST 40 U/L (17-59); African American GFR (CKD) 55 (>60 ml/min/1.73 sqM); Albumin 2.8 g/dL (3.5-5.0); Alkaline Phosphatase 65 U/L (38-126); Anion Gap 7 mmol/L; Blood Urea Nitrogen 59 mg/dL (9-20); Calcium 9.1 mg/dL (8.4-10.2); Carbon Dioxide 27 mmol/L (22-30); Chloride 102 mmol/L (98-107); Glucose 73 mg/dL (74-99); Non-African American GFR(CKD) 48 (>60 ml/min/1.73 sqM); Potassium 3.2 mmol/L (3.5-5.1); Sodium 136 mmol/L (137-145); Total Bilirubin 0.3 mg/dL (0.2-1.3); Total Protein 5.4 g/dL (6.3-8.2)
[2024-12-22] MEDS: predniSONE 20 MG TAB PO SCH (08:30)
[2024-12-22 11:47] LABS: Glucose,Whole Blood 110 mg/dL (70-110)
--- NOTE | 2024-12-22 13:51 | P.PN ---
Progress Note - Text Progress Note Date: 12/22/24 79-year-old male with recurrent bladder cancer presented initially with progressive shortness of breath and productive cough. No acute events overnight. Patient is resting comfortably in bed this morning. Passing gas and most recent bowel movement yesterday was normal. VSS General-NAD CVS-RRR Lungs-NLB Abdomen-soft, NTND Ext-no edema Assessment: CT-AP shows inflammation in retroperitoneum concerning for possible metatastic disease Acute blood loss anemia Plan: -No acute surgical intervention -If concern for metatastic disease, can obtain IR biopsy but would defer to urology -Continue regular diet Attestation Patient seen and examined at bedside. Presented with chief complaint of shortness of breath. Noted to have recurrent bladder cancer. Inflammatory changes in retroperitoneum concerning for possible metastatic disease. No plan for acute surgical intervention. If concern for metastatic disease, obtain IR biopsy, plan per urology. Continue diet. Casimiro Patel,
[2024-12-22] MEDS: POTASSIUM CHLORIDE ER 20 MEQ TAB.ER PO SCH (16:10)
--- NOTE | 2024-12-22 16:48 | P.PN ---
Subjective Progress Note Date: 12/22/24 H&P Date: 12/17/24 Chief Complaint: Shortness of breath, cough, chest pain, hematuria This is a 79-year-old gentleman with past medical history significant for hypertension, glaucoma, bladder cancer, prior nicotine dependence reports he quit 5 to 8 years ago, obesity and multiple medical issues presented to the ER with complaints of progressive shortness of breath accompanied by productive cough -white phlegm , diaphoresis and nonradiating midsternal chest pain x 3 days, intervals lasting 20 to 30-minutes. Reports hematuria x 1 day; disclosed that he has a history of recurrent blood in his urine since 2021-usually lasting 1 to 2 days then spontaneously resolves until the next occurrence. Urinal with [employer] colored urine at bedside. Denies flank pain, dysuria or frequency. states he had followed with urology, Dr. Sal in 2021, received " instillations"" for 5 to 6 weeks, surgery had been recommended. Patient did not return for any further follow-up treatment/visits. On admission, troponins elevated, 0.247, 0.430, 0.505, EKG reported sinus tachycardia, bigeminal PVCs.IV heparin drip initiated-currently discontinued related to hematuria. Maintained on nebulized bronchodilators, antibiotics, IV push Lasix, maintaining O2 sats in the 90s on 3 L nasal cannula. Chest x-ray reports small bilateral pleural effusions with left basilar patchy airspace opacities which may represent atelectasis versus infiltrate. Procalcitonin within normal limits, less than 0.2. reports fluctuating midsternal chest pressure with coughing and shortness of breath. Afebrile, normal WBC. Hemoglobin 9.5, platelets 298, sodium 135, potassium 3.6, bicarb 24, BUN 20, creatinine 1.13, magnesium 1.8. Glucose ranging from 130s to [id number]. BNP 738. UA reporting 1+ protein, large blood, negative nitrates, moderate leukocytes, greater than 182 RBCs, 181 WBCs. 12/18/2024 staff and patient reports that he struggled all night with shortness of breath, wheeziness, requiring additional prn nebulized treatments. Patient currently complaining of shortness of breath, difficulty breathing, mildly tachycardic-up to the low 1 teens, respiratory rate 22, requiring 3 L nasal cannula to maintain O2 sats In the mid to low 90s, audible expiratory wheezing, fine basilar crackles. Hypertensive, echocardiogram reported normal LV size and systolic function, right ventricle is enlarged to moderate extent, mild mitral and tricuspid regurgitation, prominent aortic root-aortic root diameter 4.1 cm, difficult study, echo contrast used. Denies chest pain, palpitations. Evaluated by urology, urogram CT ordered. Hemoglobin stable, 9.4, platelets 338. Bicarb 23, BUN 28, creatinine 1.07. Maintained on nebulized bronchodilators, steroids with blood sugars controlled. hemoglobin A1c's. 12/19/2024 maintained on nebulized bronchodilators, steroids, antibiotics and diuretics. Reports significant improvement in his breathing. Chest x-ray reporting small bilateral pleural effusions with associated atelectasis. Renal function worsened, bicarb 28, BUN 39, creatinine 1.31. Urine minimally blood tinged. Urogram CT completed yesterday, reporting circumferential bladder wall thickening with greater degree of eccentric thickening along the right bladder dome, appears to be a mural based mass measuring 3.6 cm left posterior bladder wall. 9 mm soft tissue deposit anterior left pelvis adjacent to the bladder. Additionally soft tissue stranding and infiltration throughout the pelvis right iliac chain and retroperitoneum. Some of these areas have a more nodular configuration such as the aorta bifurcation measuring 1.7 cm. Unclear if this represents extensive edema. Metastatic disease not excluded at this time. Moderate symmetric hydronephrosis possibly due to the ureters coursing through these infiltrative changes. No excretion of contrast into the ureters even on the delayed motor scan. Prostatomegaly at 5.9 cm wide. Generalized anasarca with moderate left and small to moderate right pleural effusions. Mild abdominal ascites. Correlate for fluid overload state. Possible underlying cirrhosis. 12/22/2024 underwent left-sided thoracentesis 12/20/2024, with 1000 mL of turbid colored fluid drained. Tolerated procedure well. Pleural fluid cultures/cytology pending. Afebrile, WBCs 12.78, nonproductive cough, maintaining O2 sats in the 90s on room air. Renal function worsening, BUN 59, creatinine 1.41. Bicarb 27 potassium 3.2. Hemoglobin 9.6, platelets 275. Objective - Vital Signs Vital signs: Vital Signs Temp 97.8 F 12/22/24 16:08 Pulse 85 12/22/24 16:08 Resp 16 12/22/24 16:08 BP 120/71 12/22/24 16:08 Pulse Ox 92 L 12/22/24 16:08 FiO2 Intake & Output 12/21/24 12/22/24 12/22/24 18:59 06:59 18:59 Intake Total 482 20 500 Output Total 550 900 125 Balance -68 -880 375 Weight 103.6 kg Intake: IV 20 20 20 Invasive Line 3 20 20 20 Oral 462 480 Output: Urine 550 900 125 Other: Voiding Method Urinal Urinal Urinal # Voids 1 # Bowel Movements 1 - Exam PHYSICAL EXAM: VITAL SIGNS: [Reviewed] GENERAL: Pleasant,alert and oriented x 3, sitting up in chair, NAD. HEENT: Atraumatic, normocephalic, conjunctivae normal. eyes normal. Sclerae anicteric. Poor dentition. NECK: Supple, no JVD. CARDIOVASCULAR: S1, S2 regular. No murmur RESPIRATION: Unlabored, equal air entry, essentially clear to auscultation, bilateral bases diminished. ABDOMEN: Soft, obese,distended, right lower quadrant tenderness . No rigidity, positive bowel sounds. LEGS: Positive edema, no cyanosis, peripheral pulses intact. NERVOUS SYSTEM: Cranial N 2-12 grossly normal.No focal deficits. Skin: Warm and dry, no rash - Labs CBC & Chem 7: 12/22/24 06:07 12/23/24 14:14 Labs: Abnormal Lab Results - Last 24 Hours (Table) 12/21/24 12/22/24 12/22/24 Range/Units 19:59 06:07 06:07 WBC 12.78 H (4.50-10.00) 10*3/uL RBC 3.57 L (4.40-5.60) 10*6/uL Hgb 9.6 L (13.0-17.0) g/dL Hct 29.6 L (39.6-50.0) % MCH 26.9 L (27.0-32.0) pg Immature Gran # 0.16 H (0.00-0.04) 10*3/uL Neutrophils # 9.91 H (1.80-7.70) 10*3/uL Eosinophils # 0.00 L (0.04-0.35) 10*3/uL Sodium 136 L (137-145) mmol/L Potassium 3.2 L (3.5-5.1) mmol/L BUN 59 H (9-20) mg/dL Creatinine 1.41 H (0.66-1.25) mg/dL Glucose 73 L (74-99) mg/dL POC Glucose (mg/dL) 223 H (70-110) mg/dL Total Protein 5.4 L (6.3-8.2) g/dL Albumin 2.8 L (3.5-5.0) g/dL Microbiology - Last 24 Hours (Table) 12/20/24 11:35 Gram Stain - Preliminary Pleural Fluid Body Fluid Culture - Preliminary Assessment and Plan Assessment: NSTEMI, cardiology following recommending medical management Acute COPD exacerbation.chest x-ray remarkable for cardiomegaly, small to moderate bilateral pleural effusions, and left lower lobe opacity concerning for compressive atelectasis or infectious process. ProBNP only 738. Procalcitonin WNL,<0.20. Status post left thoracentesis on 12/20/2024, pleural cytology Acute hypoxic respiratory failure, multifactorial, secondary to all the above. Intra-abdominal ,retroperitoneal edema reported per CT, reviewed by general surgery, no acute surgical intervention-deferred to urology. Hematuria, recurrent bladder cancer with possible metastasis reported per urog becka CT Acute renal insufficiency .bilateral moderate hydronephrosis reported per CT. Acute blood loss anemia secondary to the above. Lasix discontinued History of bladder cancer Hypertension Glaucoma Former nicotine dependence Morbid obesity, BMI 32 Hypokalemia Hemoglobin A1c 6.0 Constipation Plan: Continue on current medication regime ,monitoring and symptomatic treatment. Potassium supplementation in progress . Mucinex ordered .Pleural cytology pending. Outpatient cystoscopy with bladder tumor resection at a later time -not planned during this hospitalization as per urology.Aggressive p ulmonary toileting with nebulized bronchodilators, oral steroid taper, empiric antibiotics. Close monitoring of renal function, electrolytes with repeat labs ordered for a.m. discharge planning in progress pending pleural cytology, final DC recommendations and clearance per pulmonary. The impression and plan of care has been dictated as directed. : I performed a history and examination of this patient, discussed the same with the dictator. I agree with the dictator's note ,documented as a scribe. Any additional findings or plans will be noted.
--- NOTE | 2024-12-22 16:50 | P.PN ---
Subjective Progress Note Date: 12/22/24 Patient is a 79-year-old male with past medical history significant for former tobacco dependence, COPD, and bladder cancer. His PCP is Dr. Rafal Olivarez. Presented to emergency department with a chief complaint of severe shortness of breath, chest congestion, and increased cough with clear sputum. Also, was having tanya hematuria over the last 24 hours. Workup in the emergency department including a chest x-ray showing small bilateral pleural effusions and left basilar patchy airspace opacity which could represent compressive atelectasis or infectious process. CBC: WBC count 10.2, hemoglobin 9.7, platelets 309. CMP: Sodium 133, potassium 3.2, chloride 103, serum bicarb 23, BUN 20, creatinine 1, glucose 138. LFTs not elevated. Urinalysis positive for proteinuria, blood, leukocytes. Troponins elevated 0.247 and 0.43 respectively. NT proBNP 738. EKG: Sinus rhythm with bigeminal PVCs, rate 100 bpm, patient was previously started on IV heparin. [facility] He is resting comfortably on 2 L/min nasal cannula. Does not appear in respiratory distress. Denies any chest pain, heart palpitations, syncopal events, orthopnea, lower extremity edema. Does report history of COPD. He is a former tobacco smoker quit approximately 5 years ago. Previously smoked 1/2 pack/day for over 50 years. Endorses increased work of breathing over the la st 2 to 3 days. Associated cough with clear sputum production. Denies any purulent sputum. Denies any hemoptysis. Denies any fevers or chills. Previously loaded with IV Solu-Medrol and given multiple breathing treatments in the ED. Was started on IV Lasix 40 mg twice daily. He is producing blood tinged urine. No clots. Patient states that he has history of bladder cancer, that was diagnosed back in 2021. He was previously receiving bladder installations, and stopped following up. Denies any dysuria. Denies any flank pain. Denies history of kidney stones. Denies any nausea, vomiting, diarrhea, melena, hematochezia. Vital signs are stable. 12/18/2024, the patient is being seen for a follow-up. The patient is doing well. No specific complaints. The patient is currently off of IV heparin. Still having some limited hematuria and the patient was seen by urology and the urine output is showing faint blood tinged output. The CT urogram was ordered and the CAT scan showed bilateral moderate hydronephrosis in addition to intra- abdominal and retroperitoneal edema and bilateral bladder masses. There was circumferential bladder wall thickening with greater degree of the eccentric thickening along the right bladder dome. Another 3.6 cm mural based mass was seen in the left posterior bladder wall. There was also prostatic enlargement and generalized anasarca with moderate left and small to moderate right-sided pleural effusion and mild abdominal ascites consistent with fluid overload. The findings are consistent with recurrent bladder cancer. The patient will require cystoscopy and bladder tumor resection. Meanwhile, his hemoglobin is stable at 9.4. The white cell count is 16.5. Electrolytes are all stable, BUN is 28 with a creatinine of 1.07. Urine cultures are still negative and the patient remains on IV Rocephin. He is also on Lasix 40 mg IV every 12 hours and the patient is in a negative fluid balance. He is currently on 3 L of oxygen by nasal cannula with a pulse ox of 97%. He remains on DuoNeb updrafts. He remains on IV Solu- Medrol for COPD exacerbation. On 12/19/2024, the patient has been weaned down to 2 L of oxygen by nasal cannula. The patient is feeling well. No specific complaints. There is post acute non-ST segment elevation myocardial infarction. He is free of any chest pain. Urology also evaluate this patient for recurrent bladder tumor. No active hematuria at this point. He does have bilateral pleural effusion. His creatinine is 1.3 and the BUN is send 39. Response to diuretics have been somewhat suboptimal and the patient is currently off diuretics. However, he does have bilateral pleural effusions. For that reason, ultrasound of the chest was done in consideration for thoracentesis. Noted he does have possibly a moderate-sized left-sided pleural effusion and he may benefit from thoracentesis. 12/20/2024, the patient remains on oxygen and is currently on 2 L of O2 nasal cannula. Still having some limited shortness of breath. No reported chest pain. No active hematuria. Remains on bronchodilators. Remains on steroids. He does have bilateral pleural effusion right more than left. Ultrasound of chest was done and the patient was found to have a moderate-sized right-sided pleural effusion. Based on that, a bedside thoracentesis was done today and a total of 1 L of pleural fluid was aspirated from the left lung without any complications. Follow-up chest x-ray following the procedure shows improvement in the left-sided pleural effusion has essentially recovered and the patient's CHF findings on the chest x-ray is also improving. No pneumothorax. Continues to have a small right-sided pleural effusion. Remains on IV Rocephin. Remains on IV Solu-Medrol. Remains on DuoNeb nebulizers [id number]. Diuretics are currently on hold. Renal function is being monitored. Most recent creatinine is at 1.3 with a BUN of 53. Sodium is at 138. The white cell count is 14.8 with a hemoglobin of 10.8 and a platelet count of 396. On 12/21/2024, the patient is postthoracentesis. He is currently on 2 L of oxygen by nasal cannula with a pulse ox of 98%. Pulse ox on room air is in ord er of 92%. He is afebrile. Free of any chest pain. The fluid analysis from the left-sided thoracentesis showed an elevated LDH and protein, likely an exudate. Awaiting the pleural fluid cytology. Consider malignant pleural effusion especially with his history of bladder cancer. No hematuria. The white cell count is 14.8. Hemoglobin stable at 10.8. BUN is 53 with a creatinine of 1.3 and a sodium level at 138. Remains on aspirin. Remains on IV Rocephin as an empiric antibiotic coverage. Remains on Lantus insulin 15 units daily. Remains on DuoNeb updrafts and IV Solu-Medrol. The patient is seen today December 22, 2024 on the selective care unit. He is currently sitting up in a chair. Awake and alert in no acute distress. He is maintaining good O2 saturations in the 90s on room air oxygen. Afebrile. Hemodynamically stable. He does continue with a loose congested cough. Pleural fluid cultures revealing no growth. Urine culture revealed no growth. White count 12.7. Hemoglobin 9.6. Platelets 275. Sodium 136. Potassium 3.2. Bicarb 27. BUN 59. Creatinine 1.41. Glucose 73. He remains on DuoNeb ventilations. Continued on ceftriaxone. Continued on a prednisone taper. Objective - Vital Signs Vital signs: Vital Signs Temp 97.8 F 12/22/24 16:08 Pulse 69 12/22/24 16:28 Resp 16 12/22/24 16:08 BP 120/71 12/22/24 16:08 Pulse Ox 92 L 12/22/24 16:08 FiO2 Intake & Output 12/21/24 12/22/24 12/22/24 18:59 06:59 18:59 Intake Total 482 20 500 Output Total 550 900 125 Balance -68 -880 375 Weight 103.6 kg Intake: IV 20 20 20 Invasive Line 3 20 20 20 Oral 462 480 Output: Urine 550 900 125 Other: Voiding Method Urinal Urinal Urinal # Voids 1 # Bowel Movements 1 - Exam GENERAL EXAM: Alert, 79-year-old male, on room air oxygen, comfortable in no apparent distress. HEAD: Normocephalic. EYES: Normal reaction of pupils, equal size. NOSE: Clear with pink turbinates. THROAT: No erythema or exudates. NECK: No masses, no JVD. CHEST: No chest wall deformity. LUNGS: Equal air entry with faint crackles in the posterior bases. CVS: S1 and S2 normal with no audible murmur, regular rhythm. ABDOMEN: No hepatosplenomegaly, normal bowel sounds, no guarding or rigidity. SPINE: No scoliosis or deformity SKIN: No rashes CENTRAL NERVOUS SYSTEM: No focal deficits, tone is normal in all 4 extremities. EXTREMITIES: There is no peripheral edema. No clubbing, no cyanosis. Peripheral pulses are intact. - Labs CBC & Chem 7: 12/22/24 06:07 12/22/24 06:07 Labs: Abnormal Lab Results - Last 24 Hours (Table) 12/21/24 12/22/24 12/22/24 Range/Units 19:59 06:07 06:07 WBC 12.78 H (4.50-10.00) 10*3/uL RBC 3.57 L (4.40-5.60) 10*6/uL Hgb 9.6 L (13.0-17.0) g/dL Hct 29.6 L (39.6-50.0) % MCH 26.9 L (27.0-32.0) pg Immature Gran # 0.16 H (0.00-0.04) 10*3/uL Neutrophils # 9.91 H (1.80-7.70) 10*3/uL Eosinophils # 0.00 L (0.04-0.35) 10*3/uL Sodium 136 L (137-145) mmol/L Potassium 3.2 L (3.5-5.1) mmol/L BUN 59 H (9-20) mg/dL Creatinine 1.41 H (0.66-1.25) mg/dL Glucose 73 L (74-99) mg/dL POC Glucose (mg/dL) 223 H (70-110) mg/dL Total Protein 5.4 L (6.3-8.2) g/dL Albumin 2.8 L (3.5-5.0) g/dL Microbiology - Last 24 Hours (Table) 12/20/24 11:35 Gram Stain - Preliminary Pleural Fluid Body Fluid Culture - Preliminary Assessment and Plan Assessment: Acute non-ST elevation [place], seen by cardiology and the patient was treated me dically. No plans for cardiac catheterization, and the patient remains free of any chest pain Chronic obstructive pulmonary disease with secondary exacerbation, currently on a combination of bronchodilators and steroids Bilateral pleural effusion left more than right, status post thoracentesis of the left lung on 12/20/2024 and removal of 1 L of pleural fluid. The pleural fluid is an exudate. Awaiting pleural fluid cytology. Acute hypoxemic respiratory failure, currently on 2 L/min nasal cannula, chest x-ray remarkable for cardiomegaly, small to moderate-sized bilateral pleural effusions, and left lower lobe opacity concerning for compressive atelectasis or infectious process. proBNP only 738. Recurrent bladder tumor. Please refer to the results of the CT urogram. The patient also has bilateral hydronephrosis Hematuria secondary to above Acute blood loss anemia, hemoglobin is stable History of bladder cancer Hypertension Former tobacco dependence Acute kidney injury with a creatinine being stable at 1.3. The patient has mild hydronephrosis and the patient was receiving diuretics and the patient is currently off Lasix. Plan: The patient was seen and evaluated Labs and medications reviewed Stable on room air oxygen Continued on DuoNeb inhalations Remains on ceftriaxone Initiated on a prednisone taper Plan is for home with home care at discharge I have personally seen and examined the patient, performed the documentation and the assessment and plan as written. Number of minutes spent on the visit: 10 Dictation was produced using [employer] (acquired by [employer] in 2014)ation software. Please excuse any grammatical, word or spelling errors.
[2024-12-22 17:03] LABS: Glucose,Whole Blood 186 mg/dL (70-110)
[2024-12-22 20:21] LABS: Glucose,Whole Blood 170 mg/dL (70-110)
[2024-12-22] MEDS: guaiFENesin 600 MG TABLET.ER PO SCH (21:30)
[2024-12-23 04:40] VITALS: RESP 18
[2024-12-23 06:10] LABS: Glucose,Whole Blood 112 mg/dL (70-110)
[2024-12-23 08:39] VITALS: BP 138/72; TEMP 97.4
[2024-12-23 09:51] VITALS: PULSE 60
[2024-12-23 11:40] LABS: Glucose,Whole Blood 103 mg/dL (70-110)
[2024-12-23] MEDS: SYMBICORT 160-4.5 MCG INHALER INHALATION SCH (12:46)
[2024-12-23 14:50] LABS: African American GFR (CKD) 67 (>60 ml/min/1.73 sqM); Anion Gap 7 mmol/L; Blood Urea Nitrogen 50 mg/dL (9-20); Calcium 8.8 mg/dL (8.4-10.2); Carbon Dioxide 25 mmol/L (22-30); Chloride 104 mmol/L (98-107); Glucose 117 mg/dL (74-99); Non-African American GFR(CKD) 58 (>60 ml/min/1.73 sqM); Potassium 3.6 mmol/L (3.5-5.1); Sodium 136 mmol/L (137-145)
[2024-12-23] MEDS: POTASSIUM CHLORIDE ER 20 MEQ TAB.ER PO SCH (15:06)
--- NOTE | 2024-12-23 15:17 | P.PN ---
Subjective Progress Note Date: 12/23/24 Principal diagnosis: Acute non-ST elevation myocardial infarction and acute COPD exacerbation Patient is a 79-year-old male with past medical history significant for former tobacco dependence, COPD, and bladder cancer. His PCP is Dr. Rafal Olivarez. Presented to emergency department with a chief complaint of severe shortness of breath, chest congestion, and increased cough with clear sputum. Also, was having tanya hematuria over the last 24 hours. Workup in the emergency dep artment including a chest x-ray showing small bilateral pleural effusions and left basilar patchy airspace opacity which could represent compressive atelectasis or infectious process. CBC: WBC count 10.2, hemoglobin 9.7, platelets 309. CMP: Sodium 133, potassium 3.2, chloride 103, serum bicarb 23, BUN 20, creatinine 1, glucose 138. LFTs not elevated. Urinalysis positive for proteinuria, blood, leukocytes. Troponins elevated 0.247 and 0.43 respectively. NT proBNP 738. EKG: Sinus rhythm with bigeminal PVCs, rate 100 bpm, patient was previously started on IV heparin. Patient currently being evaluated in the emergency department. He is resting comfortably on 2 L/min nasal cannula. Does not appear in respiratory distress. Denies any chest pain, heart palpitations, syncopal events, orthopnea, lower extremity edema. Does report history of COPD. He is a former tobacco smoker quit approximately 5 years ago. Previously smoked 1/2 pack/day for over 50 years. Endorses increased work of breathing over the last 2 to 3 days. Associated cough with clear sputum production. Denies any pu rulent sputum. Denies any hemoptysis. Denies any fevers or chills. Previously loaded with IV Solu-Medrol and given multiple breathing treatments in the ED. Was started on IV Lasix 40 mg twice daily. He is producing blood tinged urine. No clots. Patient states that he has history of bladder cancer, that was diagnosed back in 2021. He was previously receiving bladder installations, and stopped following up. Denies any dysuria. Denies any flank pain. Denies history of kidney stones. Denies any nausea, vomiting, diarrhea, melena, hematochezia. Vital signs are stable. 12/18/2024, the patient is being seen for a follow-up. The patient is doing well. No specific complaints. The patient is currently off of IV heparin. Still having some limited hematuria and the patient was seen by urology and the urine output is showing faint blood tinged output. The CT urogram was ordered and the CAT scan showed bilateral moderate hydronephrosis in addition to intra- abdominal and retroperitoneal edema and bilateral bladder masses. There was circumferential bladder wall thickening with greater degree of the eccentric thickening along the right bladder dome. Another 3.6 cm mural based mass was seen in the left posterior bladder wall. There was also prostatic enlargement and generalized anasarca with moderate left and small to moderate right-sided pleural effusion and mild abdominal ascites consistent with fluid overload. The findings are consistent with recurrent bladder cancer. The patient will require cystoscopy and bladder tumor resection. Meanwhile, his hemoglobin is stable at 9.4. The white cell count is 16.5. Electrolytes are all stable, BUN is 28 with a creatinine of 1.07. Urine cultures are still negative and the patient remains on IV Rocephin. He is also on Lasix 40 mg IV every 12 hours and the patient is in a negative fluid balance. He is currently on 3 L of oxygen by nasal cannula with a pulse ox of 97%. He remains on DuoNeb updrafts. He remains on IV Solu- Medrol for COPD exacerbation. On 12/19/2024, the patient has been weaned down to 2 L of oxygen by nasal cannula. The patient is feeling well. No specific complaints. There is post acute non-ST segment elevation myocardial infarction. He is free of any chest pain. Urology also evaluate this patient for recurrent bladder tumor. No active hematuria at this point. He does have bilateral pleural effusion. His creatinine is 1.3 and the BUN is send 39. Response to diuretics have been somewhat suboptimal and the patient is currently off diuretics. However, he does have bilateral pleural effusions. For that reason, ultrasound of the chest was done in consideration for thoracentesis. Noted he does have possibly a moderate-sized left-sided pleural effusion and he may benefit from thora centesis. 12/20/2024, the patient remains on oxygen and is currently on 2 L of O2 nasal cannula. Still having some limited shortness of breath. No reported chest pain. No active hematuria. Remains on bronchodilators. Remains on steroids. He does have bilateral pleural effusion right more than left. Ultrasound of chest was done and the patient was found to have a moderate-sized right-sided pleural effusion. Based on that, a bedside thoracentesis was done today and a total of 1 L of pleural fluid was aspirated from the left lung without any complications. Follow-up chest x-ray following the procedure shows improvement in the left-sided pleural effusion has essentially recovered and the patient's CHF findings on the chest x-ray is also improving. No pneumothorax. Continues to have a small right-sided pleural effusion. Remains on IV Rocephin. Remains on IV Solu-Medrol. Remains on DuoNeb nebulizers [id number]. Diuretics are currently on hold. Renal function is being monitored. Most recent creatinine is at 1.3 with a BUN of 53. Sodium is at 138. The white cell count is 14.8 with a hemoglobin of 10.8 and a platelet count of 396. On 12/21/2024, the patient is postthoracentesis. He is currently on 2 L of oxygen by nasal cannula with a pulse ox of 98%. Pulse ox on room air is in order of 92%. He is afebrile. Free of any chest pain. The fluid analysis from the left-sided thoracentesis showed an elevated LDH and protein, likely an exudate. Awaiting the pleural fluid cytology. Consider malignant pleural effusion especially with his history of bladder cancer. No hematuria. The white cell count is 14.8. Hemoglobin stable at 10.8. BUN is 53 with a cr eatinine of 1.3 and a sodium level at 138. Remains on aspirin. Remains on IV Rocephin as an empiric antibiotic coverage. Remains on Lantus insulin 15 units daily. Remains on DuoNeb updrafts and IV Solu-Medrol. The patient is seen today December 22, 2024 on the selective care unit. He is currently sitting up in a chair. Awake and alert in no acute distress. He is maintaining good O2 saturations in the 90s on room air oxygen. Afebrile. Hemodynamically stable. He does continue with a loose congested cough. Pleural fluid cultures revealing no growth. Urine culture revealed no growth. White count 12.7. Hemoglobin 9.6. Platelets 275. Sodium 136. Potassium 3.2. Bicarb 27. BUN 59. Creatinine 1.41. Glucose 73. He remains on DuoNeb ventilations. Continued on ceftriaxone. Continued on a prednisone taper. Seen today on 12/23/2024, patient feels better, breathing easier, not in any distress, on room air with O2 sat of 95%. Patient is being considered for discharge today, I will clear the patient for discharge if cleared by other consultants. Labs done today were reviewed, BUN is 50 creatinine 1.20. Patient has made significant improvement since admission. Objective - Vital Signs Vital signs: Vital Signs Temp 97.4 F L 12/23/24 08:30 Pulse 60 12/23/24 09:50 Resp 18 12/23/24 08:30 BP 138/72 12/23/24 08:30 Pulse Ox 95 12/23/24 09:36 FiO2 Intake & Output 12/22/24 12/23/24 12/23/24 18:59 06:59 18:59 Intake Total 1460 220 250 Output Total 125 325 50 Balance 1335 -105 200 Intake: IV 20 20 10 Invasive Line 3 20 20 10 Oral 1440 200 240 Output: Urine 125 325 50 Other: Voiding Method Urinal Urinal - Exam GENERAL EXAM: 79-year-old in no distress on room air HEAD: Normocephalic. EYES: Normal reaction of pupils, equal size. NOSE: Clear with pink turbinates. THROAT: No erythema or exudates. NECK: No masses, no JVD. CHEST: No chest wall deformity. LUNGS: Diminished breath sounds at the bases no crackles rhonchi or wheezes CVS: S1 and S2 normal with no audible murmur, regular rhythm. ABDOMEN: No hepatosplenomegaly, normal bowel sounds, no guarding or rigidity. SKIN: No rashes CENTRAL NERVOUS SYSTEM: Alert oriented x 3 no focal deficit EXTREMITIES: No clubbing edema or cyanosis - Labs CBC & Chem 7: 12/22/24 06:07 12/23/24 14:14 Labs: Abnormal Lab Results - Last 24 Hours (Table) 12/22/24 12/22/24 12/23/24 Range/Units 16:46 20:20 06:09 Sodium (137-145) mmol/L BUN (9-20) mg/dL Glucose (74-99) mg/dL POC Glucose (mg/dL) 186 H 170 H 112 H (70-110) mg/dL 12/23/24 Range/Units 14:14 Sodium 136 L (137-145) mmol/L BUN 50 H (9-20) mg/dL Glucose 117 H (74-99) mg/dL POC Glucose (mg/dL) (70-110) mg/dL Microbiology - Last 24 Hours (Table) 12/20/24 11:35 Gram Stain - Preliminary Pleural Fluid Body Fluid Culture - Preliminary Assessment and Plan Assessment: Impression: Acute non-ST elevation [place], seen by cardiology and the patient was treated medically. No plans for cardiac catheterization, and the patient remains free of any chest pain Chronic obstructive pulmonary disease with secondary exacerbation, currently on a combination of bronchodilators and steroids Bilateral pleural effusion left more than right, status post thoracentesis of the left lung on 12/20/2024 and removal of 1 L of pleural fluid. The pleural fluid is an exudate. Awaiting pleural fluid cytology. Acute hypoxemic respiratory failure, currently on 2 L/min nasal cannula, chest x-ray remarkable for cardiomegaly, small to moderate-sized bilateral pleural effusions, and left lower lobe opacity concerning for compressive atelectasis or infectious process. proBNP only 738. Recurrent bladder tumor. Please refer to the results of the CT urogram. The patient also has bilateral hydronephrosis Hematuria secondary to above Acute blood loss anemia, hemoglobin is stable History of bladder cancer Hypertension Former tobacco dependence Acute kidney injury with a creatinine being stable at 1.3. The patient has mild hydronephrosis and the patient was receiving diuretics and the patient is currently off Lasix. Recommendation: Continue present supportive care measures Patient could be transition to oral antibiotics Consider discharge planning/home care at discharge. Could be seen on outpatient basis by Dr. Cates postdischarge. Time with Patient: Less than 30
--- NOTE | 2024-12-25 14:30 | P.DS ---
Providers Date of admission: 12/16/24 22:12 Expected date of discharge: 12/25/24 Attending physician: Rafal Olivarez Consults: 12/16/24 22:17 Consult Physician Routine Consulting Provider: Luis Armando Grande Consult Reason/Comments: copd Do you want consulting provider notified?: Yes 12/17/24 00:05 Consult Physician Routine Consulting Provider: Ruben Sal Consult Reason/Comments: hematuria; bladder cancer Do you want consulting provider notified?: Yes 12/19/24 09:23 Consult Physician Routine Consulting Provider: Casimiro Patel Consult Reason/Comments: Intra-abdominal/retroperitoneal edema per CT Do you want consulting provider notified?: Yes Primary care physician: Rafal Olivarez [facility] Course: Final Diagnoses: NSTEMI, cardiology following recommending medical management Acute COPD exacerbation.chest x-ray remarkable for cardiomegaly, small to moderate bilateral pleural effusions, and left lower lobe opacity concerning for compressive atelectasis or infectious process. ProBNP only 738. Procalcitonin WNL,<0.20. Status post left thoracentesis on 12/20/2024, pleural cytology Acute hypoxic respiratory failure, multifactorial, secondary to all the above. Intra-abdominal ,retroperitoneal edema reported per CT, reviewed by general surgery, no acute surgical intervention-deferred to urology. Hematuria, recurrent bladder cancer with possible metastasis reported per urogram CT Acute kidney injury with bilateral moderate hydronephrosis reported per CT. currently off Lasix Acute blood loss anemia secondary to the above. Lasix discontinued History of bladder cancer Hypertension Glaucoma Former nicotine dependence Morbid obesity, BMI 32 Hypokalemia Hemoglobin A1c 6.0 Constipation Hospital Course:This is a 79-year-old gentleman with past medical history significant for hypertension, glaucoma, bladder cancer, prior nicotine dependence reports he quit 5 to 8 years ago, obesity and multiple medical issues presented to the ER with complaints of progressive shortness of breath accompanied by productive cough -white phlegm , diaphoresis and nonradiating midsternal chest pain x 3 days, intervals lasting 20 to 30-minutes. Reports hematuria x 1 day; disclosed that he has a history of recurrent blood in his urine since 2021-usually lasting 1 to 2 days then spontaneously resolves until the next occurrence. Urinal with [employer] colored urine at bedside. Denies flank pain, dysuria or frequency. states he had followed with urology, Dr. Sal in 2021, received "instillations"" for 5 to 6 weeks, surgery had been recommended. Patient did not return for any further follow-up treatment/visits. On admission, troponins elevated, 0.247, 0.430, 0.505, EKG reported sinus tachycardia, bigeminal PVCs.IV heparin drip initiated-currently discontinued related to hematuria. Maintained on nebulized bronchodilators, antibiotics, IV push Lasix, maintaining O2 sats in the 90s on 3 L nasal cannula. Chest x-ray reports small bilateral pleural effusions with left basilar patchy airspace opacities which may represent atelectasis versus infiltrate. Procalcitonin within normal limits, less than 0.2. reports fluctuating midsternal chest pressu re with coughing and shortness of breath. Afebrile, normal WBC. Hemoglobin 9.5, platelets 298, sodium 135, potassium 3.6, bicarb 24, BUN 20, creatinine 1.13, magnesium 1.8. Glucose ranging from 130s to [id number]. BNP 738. UA reporting 1+ protein, large blood, negative nitrates, moderate leukocytes, greater than 182 RBCs, 181 WBCs. 12/18/2024 staff and patient reports that he struggled all night with shortness of breath, wheeziness, requiring additional prn nebulized treatments. Patient currently complaining of shortness of breath, difficulty breathing, mildly tachycardic-up to the low 1 teens, respiratory rate 22, requiring 3 L nasal cannula to maintain O2 sats In the mid to low 90s, audible expiratory wheezing, fine basilar crackles. Hypertensive, echocardiogram reported normal LV size and systolic function, right ventricle is enlarged to moderate extent, mild mitral and tricuspid regurgitation, prominent aortic root-aortic root diameter 4.1 cm, difficult study, echo contrast used. Denies chest pain, palpitations. Evaluated by urology, urogram CT ordered. Hemoglobin stable, 9.4, platelets 338. Bicarb 23, BUN 28, creatinine 1.07. Maintained on nebulized bronchodila tors, steroids with blood sugars controlled. hemoglobin A1c's. 12/19/2024 maintained on nebulized bronchodilators, steroids, antibiotics and diuretics. Reports significant improvement in his breathing. Chest x-ray reporting small bilateral pleural effusions with associated atelectasis. Renal function worsened, bicarb 28, BUN 39, creatinine 1.31. Urine minimally blood tinged. Urogram CT completed yesterday, reporting circumferential bladder wall thickening with greater degree of eccentric thickening along the right bladder dome, appears to be a mural based mass measuring 3.6 cm left posterior bladder wall. 9 mm soft tissue deposit anterior left pelvis adjacent to the bladder. Additionally soft tissue stranding and infiltration throughout the pelvis right iliac chain and retroperitoneum. Some of these areas have a more nodular configuration such as the aorta bifurcation measuring 1.7 cm. Unclear if this represents extensive edema. Metastatic disease not excluded at this time. Moderate symmetric hydronephrosis possibly due to the ureters coursing through these infiltrative changes. No excretion of contrast into the ureters even on the delayed motor scan. Prostatomegaly at 5.9 cm wide. Generalized anasarca with moderate left and small to moderate right pleural effusions. Mild abdominal ascites. Correlate for fluid overload state. Possible underlying cirrhosis. 12/22/2024 underwent left-sided thoracentesis 12/20/2024, with 1000 mL of turbid colored fluid drained. Tolerated procedure well. Pleural fluid cultures/cytology pending. Afebrile, WBCs 12.78, nonproductive cough, maintaining O2 sats in the 90s on room air. Renal function worsening, BUN 59, creatinine 1.41. Bicarb 27 potassium 3.2. Hemoglobin 9.6, platelets 275. Continue on current medication regime ,monitoring and symptomatic treatment. Potassium supplementation in progress . Mucinex ordered .Pleural cytology pending. Outpatient cystoscopy with bladder tumor resection at a later time - not planned during this hospitalization as per urology.Aggressive pulmonary toileting with nebulized bronchodilators, oral steroid taper, empiric antibiotics. Close monitoring of renal function, electrolytes with repeat labs ordered for a.m. discharge planning in progress pending pleural cytology, final DC recommendations and clearance per pulmonary. Significant improvement .patient is eager for discharge, denies chest pain, palpitations or shortness of breath. Maintaining O2 sats in the mid 90s on room air. reinforced to patient that further workup is needed outpatient, as discussed. patient will be discharged home today in a stable condition with guarded prognosis. The impression and plan of care has been dictated as directed. : I performed a history and examination of this patient, discussed the same with the dictator. I agree with the dictator's note ,documented as a scribe. Any additional findings or plans will be noted. Patient Condition at Discharge: Stable Plan - Discharge Summary New Discharge Prescriptions: New Melatonin 5 mg PO HS PRN #30 tab PRN Reason: Insomnia Ipratropium-Albuterol Nebulize [Duoneb 0.5 mg-3 mg/3 ml Soln] 3 ml INHALATION RT-QID #120 each Budesonide-Formot 160-4.5 Mcg [Symbicort 160-4.5 Mcg Inhaler] 2 puff INHALATION RT-BID #1 each Atorvastatin [Lipitor] 80 mg PO HS #30 tab Metoprolol Tartrate [Lopressor] 25 mg PO BID #60 tab guaiFENesin [Mucinex] 1,200 mg PO Q12HR #60 tab predniSONE 10 mg PO DIRECTED #30 tab Calcium Carbonate [Tums] 500 mg PO TID PRN tab PRN Reason: Heartburn Continue Tamsulosin HCl [Flomax] 0.4 mg PO DAILY Timolol 0.5% Ophth Soln [Timoptic 0.5% Ophth Soln] 1 drop BOTH EYES BID Latanoprost [Latanoprost 0.005%] 1 drop BOTH EYES HS Escitalopram [Lexapro] 20 mg PO DAILY LORazepam [Ativan] 0.5 mg PO HS PRN PRN Reason: Anxiety Finasteride [Proscar] 5 mg PO DAILY Albuterol Sulfate [Albuterol Sulfate Hfa] 2 puff INHALATION RT-QID PRN PRN Reason: Shortness Of Breath Aspirin EC [Ecotrin Low Dose] 81 mg PO DAILY Ascorbic Acid [Vitamin C] 1,000 mg PO DAILY Discontinued valACYclovir HCL [Valtrex] 500 mg PO DAILY Discharge Medication List Tamsulosin HCl [Flomax] 0.4 mg PO DAILY 01/22/22 [History] Albuterol Sulfate [Albuterol Sulfate Hfa] 2 puff INHALATION RT-QID PRN 12/17/24 [History] Ascorbic Acid [Vitamin C] 1,000 mg PO DAILY 12/17/24 [History] Aspirin EC [Ecotrin Low Dose] 81 mg PO DAILY 12/17/24 [History] Escitalopram [Lexapro] 20 mg PO DAILY 12/17/24 [History] Finasteride [Proscar] 5 mg PO DAILY 12/17/24 [History] LORazepam [Ativan] 0.5 mg PO HS PRN 12/17/24 [History] Latanoprost [Latanoprost 0.005%] 1 drop BOTH EYES HS 12/17/24 [History] Timolol 0.5% Ophth Soln [Timoptic 0.5% Ophth Soln] 1 drop BOTH EYES BID 12/17/24 [History] Atorvastatin [Lipitor] 80 mg PO HS #30 tab 12/23/24 [Rx] Budesonide-Formot 160-4.5 Mcg [Symbicort 160-4.5 Mcg Inhaler] 2 puff INHALATION RT-BID #1 each 12/23/24 [Rx] Calcium Carbonate [Tums] 500 mg PO TID PRN tab 12/23/24 [Rx] Ipratropium-Albuterol Nebulize [Duoneb 0.5 mg-3 mg/3 ml Soln] 3 ml INHALATION RT-QID #120 each 12/23/24 [Rx] Melatonin 5 mg PO HS PRN #30 tab 12/23/24 [Rx] Metoprolol Tartrate [Lopressor] 25 mg PO BID #60 tab 12/23/24 [Rx] guaiFENesin [Mucinex] 1,200 mg PO Q12HR #60 tab 12/23/24 [Rx] predniSONE 10 mg PO DIRECTED #30 tab 12/23/24 [Rx] Follow up Appointment(s)/Referral(s): Salazar Thomas MD [STAFF PHYSICIAN] - 1 Week Rafal Olivarez DO [Primary Care Provider] - 1 Week Ruben Sal MD [STAFF PHYSICIAN] - 1 Week Luis Armando Grande MD [STAFF PHYSICIAN] - 1 Week [facility] Visiting Nurse, [NON-STAFF] - Ambulatory/Diagnostic Orders: Basic Metabolic Panel [LAB.AMB] Time Frame: 3 Days, Location: None Selected Patient Instructions/Handouts: Heart Failure (DC), Pulmonary Edema (DC), Potassium Content of Foods List (DC), COPD (Chronic Obstructive Pulmonary Disease) (DC) Discharge/Stand Alone Forms: Who Do I Call? Discharge Disposition: HOME WITH HOME HEALTH SERVICES
--- NOTE | 2024-12-26 06:17 | CDI ---
Documentation Clarification Form Date: 12/26/24 From: Sonali Azul Admit Date: 12/16/2024 10:12:00 PM Patient Name: Ren Garduno Visit Number: [id number] Discharge Date: 12/23/2024 03:13:00 PM ATTENTION: The Clinical Documentation Specialists (CDI) and [facility] Coding Staff appreciate your assistance in clarifying documentation. Please respond to the clarification below the line at the bottom and electronically sign. The CDI & [facility] Coding staff will review the response and follow-up if needed. Please note: Queries are made part of the Legal Health Record. If you have any questions, please contact the author of this message via ITS. Doctor/Provider: Rafal Olivarez, The final diagnosis of the pathology report states PERITONEAL/PELVIC FLUID: Positive for rare metastatic carcinoma cells. Coding guidelines do not allow coding professionals to code based on pathology results; therefore, clarification is requested. History/risk factors: Bladder ca, NSTEMI, acute hypoxic respiratory failure, JORGE Clinical Indicators: Patient with ascites. Paracentesis done on 12/19 per pathology report. I dont find a paracentesis report in the record. Patient did have a thoracentesis on 12/20 Treatment: To be followed up as an outpatient. Please clarify if you agree with the pathology report diagnosis of PERITONEAL/PELVIC FLUID: Positive for rare metastatic carcinoma cells. : [ X] Yes [ ] No [ ] Other (please specify) [ ] Unable to determine MTDD
--- NOTE | 2024-12-26 06:46 | CDI ---
Documentation Clarification Form Date: 12/26/24 From: Sonali Azul Admit Date: 12/16/2024 10:12:00 PM Patient Name: Ren Garduno Visit Number: [id number] Discharge Date: 12/23/2024 03:13:00 PM ATTENTION: The Clinical Documentation Specialists (CDI) and [facility] Coding Staff appreciate your assistance in clarifying documentation. Please respond to the clarification below the line at the bottom and electronically sign. The CDI & [facility] Coding staff will review the response and follow-up if needed. Please note: Queries are made part of the Legal Health Record. If you have any questions, please contact the author of this message via ITS. Doctor/Provider: Rafal Olivarez, Pleural effusions in Dr. Grande consult on 12/17 and patient is noted to have CHF in the ED Note. Please clarify if there is a relationship between pleural effusions and CHF. History/Risk Factors: Bladder ca, NSTEMI, acute hypoxic respiratory failure, JORGE Clinical Indicators: 12/16: BNP-738, VS: T 97.9, W[place] 104, RR 20, BP 121/81, O2 2L NC Pleural fluid is an exudate. Path: Peritoneal/Pelvic Fluid: Positive for rare metastatic carcinoma ECHO: Normal LV size and systolic function. Right ventricle isenlargedto a moderate extent. Ejection fraction is estimated at 55-60% Treatment: Thoracentesis 12/04, IV Lasix Please clarify the relationship, if any, which is clinically appropriate for this patient: [ X] Pleural effusions due to CHF, please specify type and acuity [ ] Pleural effusions due metastatic cancer [ ] Other explanation of clinical findings (please specify) [ ] Unable to determine (no explanation for clinical findings) MTDD
--- NOTE | 2025-01-12 07:15 | CDI ---
Documentation Clarification Form Date: 01/12/25 From: Sonali Azul Admit Date: 12/16/2024 10:12:00 PM Patient Name: Ren Garduno Visit Number: [id number] Discharge Date: 12/23/2024 03:13:00 PM ATTENTION: The Clinical Documentation Specialists (CDI) and [facility] Coding Staff appreciate your assistance in clarifying documentation. Please respond to the clarification below the line at the bottom and electronically sign. The CDI & [facility] Coding staff will review the response and follow-up if needed. Please note: Queries are made part of the Legal Health Record. If you have any questions, please contact the author of this message via ITS. Doctor/Provider: Gabrielle, Your patient has the documented diagnosis of unspecified CHF in Dr. Harjinder larsen and the ED note. Additional information regarding the type and acuity of CHF is requested. History/Risk Factors: Patient presents for evaluationregards to severeshortness of breath. Clinical Indicators: SOB, pedal edema, acute hypoxic respiratory failure on oxygen VS/Pulse OX: P 104, R 20, BP 121/81, O2 SATS 95 2L NC BNP: 738 Echocardiogram Results: Left ventricular ejection fraction is estimated at 55- 60 %. 12/16 IV Lasix, Left thoracentesis In your professional opinion, can you please clarify the [acuity and type] of CHF if known? [ ] Acute Diastolic Heart Failure (preserved EF) [ ] Chronic Diastolic Heart Failure (preserved EF) [X] Acute on Chronic Diastolic Heart Failure (preserved EF) [X] Other, please specify__pleural effusion secondary to metastatic cancer [ ] Unable to determine MTDD
== END 2024-12-23 15:13 | disposition home health service (06) | DRG 280 ==
LOC: EC 20:14 → 3SCARD 22:12
PROVIDERS: ADMIT Family Medicine; ATTEND Family Medicine
PROC: 0W9B3ZX Drainage of Left Pleural Cavity, Percutaneous Approach, Diagnostic (ICD-10-PCS; principal; 2024-12-20)
DX: I21.4 Non-ST elevation (NSTEMI) myocardial infarction (principal); I50.33 Acute on chronic diastolic (congestive) heart failure; J96.01 Acute respiratory failure with hypoxia; C78.2 Secondary malignant neoplasm of pleura; R18.8 Other ascites; D62 Acute posthemorrhagic anemia; I27.20 Pulmonary hypertension, unspecified; C67.9 Malignant neoplasm of bladder, unspecified; J44.1 Chronic obstructive pulmonary disease with (acute) exacerbation; I11.0 Hypertensive heart disease with heart failure; E66.01 Morbid (severe) obesity due to excess calories; N17.9 Acute kidney failure, unspecified; N13.30 Unspecified hydronephrosis; J98.11 Atelectasis; Z68.32 Body mass index [BMI] 32.0-32.9, adult; E87.6 Hypokalemia; R31.0 Gross hematuria; H40.9 Unspecified glaucoma; I49.3 Ventricular premature depolarization; K59.00 Constipation, unspecified; N40.0 Benign prostatic hyperplasia without lower urinary tract symptoms; Z79.82 Long term (current) use of aspirin; Z79.899 Other long term (current) drug therapy; Z87.891 Personal history of nicotine dependence
CPT/HCPCS: 36415; 71045; 71046; 74178; 74400; 76604; 80048; 80053; 81001; 82945; 83036; 83605; 83615; 83735; 83880; 84100; 84145; 84157; 84484; 85025; 85027; 85610; 85730; 87070; 87086; 87205; 88108; 88305; 88341; 88342; 89050; 93005; 93306; 94640; 94760; 96361; 96365; 96366; 96368; 96375; 96376; 99291